=== PATIENT | male | born 1945 | race Caucasian/White ===

== ENCOUNTER 2020-02-20 08:16 | Outpatient (CLI) | payer OTHER, SELFPAY ==
--- NOTE | ~2020-02-20 | XR_ITS ---
XR ribs RT 2V w CXR 2V DATE: 02/20/2020 08:45 INDICATION: Right lower lateral rib pain. No injury. TECHNIQUE: PA and lateral views. COMPARISON: None FINDINGS: Status post sternotomy. Normal heart size. There is aortic calcification and unfolding. No hilar or mediastinal enlargement. No pulmonary infiltrate or consolidation, pleural effusion or pulmo nary vascular congestion or pneumothorax. 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 There is degenerative spurring of the th oracic spine. IMPRESSION: Status post sternotomy No active cardiopulmonary disease No rib fracture or bone destruction is detected Reviewed, dictated and finalized at location A.
[2020-02-20 09:11] LABS: Alanine Aminotransferase 19 U/L (4-50); Albumin Level 4.2 g/dL (3.5-5.1); Alkaline Phosphatase 54 U/L (38-126); Aspartate Amino Transferase 23 U/L (17-59); Bilirubin,Total 0.6 mg/dL (0.2-1.3); Blood Urea Nitrogen 20 mg/dL (9-20); Calcium 9.1 mg/dL (8.4-10.2); Carbon Dioxide 27 mmol/L (22-30); Chloride 103 mmol/L (98-107); Estimated Glomerular Filt Rate > 60; Glucose 171 mg/dL (75-110); Potassium 4.2 mmol/L (3.4-5.0); Sodium 137 mmol/L (137-145)
[2020-02-20 09:14] LABS: Basophils Percent Auto 0.6 % (0.2-1.2); Eosinophils Absolute Auto 0.2 K/mm3 (0-0.3); Eosinophils Percent Auto 2.1 % (0-4.4); Hematocrit 45.3 % (42.0-52.0); Hemoglobin 15.2 g/dL (14.0-18.0); Immature Granulocyte Absolute 0.02 K/mm3 (0.00-0.031); Immature Granulocyte Percent A 0.3 % (0-0.5); Lymphocytes Absolute Auto 1.03 K/mm3 (0.9-3.2); Lymphocytes Percent Auto 14.7 % (18.3-44.2); Mean Corpuscular HGB Conc 33.6 g/dl (32-36); Mean Corpuscular Hemoglobin 31.9 pg (26-34); Mean Platelet Volume 10.9 fl (7.4-10.4); Monocytes Absolute Auto 0.5 K/mm3 (0.1-0.6); Monocytes Percent Auto 7.4 % (2.6-8.5); Neutrophils Absolute Auto 5.3 K/mm3 (1.3-6.7); Neutrophils Percent Auto 74.9 % (45.5-73.1); Platelet Count Result 149 k/mm3 (150-375); Red Blood Count 4.77 M/mm3 (4.6-6.20); Red Cell Distribution Width 13.5 % (11.5-14.5)
[2020-02-20 09:34] LABS: Hemoglobin A1C 6.3 % (<5.7)
[2020-02-20 10:44] LABS: Creatinine Urine 175.9 mg/dL
[2020-02-20 10:47] LABS: MALB Creatinine Ratio 10.5 mg/g (0-30); Microalbumin Urine Random 18.5 mg/L (0-16.7)
== END 2020-02-20 08:17 | disposition home or self-care (01) ==
PROVIDERS: PCP Internal Medicine; Visit Provider Internal Medicine
DX: R07.81 Pleurodynia (principal); E11.9 Type 2 diabetes mellitus without complications
CPT/HCPCS: 36415; 71046; 71100; 80053; 82043; 83036; 85025

== ENCOUNTER 2020-07-16 13:58 | Outpatient (CLI) | payer OTHER, SELFPAY | END 2020-07-16 13:59 | disposition home or self-care (01) | PROVIDERS: PCP Internal Medicine; Visit Provider Internal Medicine | DX: N39.0 Urinary tract infection, site not specified (principal); R30.0 Dysuria | CPT/HCPCS: 87086; 87088 ==

== ENCOUNTER 2020-07-31 10:46 | Outpatient (CLI) | payer OTHER, SELFPAY ==
[2020-07-31 11:12] LABS: Add Urine Microscopic? YES; Appearance Urine Cloudy (Clear); Bilirubin Urine Negative (Negative); Blood Urine 3+ (Negative); Color Urine Red (Yellow); Glucose Urine UA Negative (Negative); Ketones Urine Negative (Negative); Leukocyte Esterase Ur 2+ LEU/UL (Negative); Nitrate Urine Negative (Negative); Protein Urine 2+ mg/dL (Negative); RBC Urine >75 /hpf (0-2); Specific Grav Ur 1.014 (1.001-1.035); Urobilinogen Urine Negative mg/dL (<2.0); WBC Urine >75 /hpf
== END 2020-07-31 10:47 | disposition home or self-care (01) ==
LOC: ANHLAB 10:48
PROVIDERS: PCP Internal Medicine; Visit Provider Internal Medicine
DX: R31.29 Other microscopic hematuria (principal)
CPT/HCPCS: 81001; 87077; 87086; 87088; 87186

== ENCOUNTER 2020-08-14 08:28 | Outpatient (CLI) | payer OTHER, SELFPAY ==
[2020-08-14 08:56] LABS: Basophils Percent Auto 0.6 % (0.2-1.2); Eosinophils Absolute Auto 0.2 K/mm3 (0-0.3); Eosinophils Percent Auto 2.6 % (0-4.4); Hematocrit 42.7 % (42.0-52.0); Hemoglobin 14.4 g/dL (14.0-18.0); Immature Granulocyte Absolute 0.04 K/mm3 (0.00-0.031); Immature Granulocyte Percent A 0.6 % (0-0.5); Lymphocytes Absolute Auto 1.34 K/mm3 (0.9-3.2); Lymphocytes Percent Auto 20.6 % (18.3-44.2); Mean Corpuscular HGB Conc 33.7 g/dl (32-36); Mean Corpuscular Volume 94.9 fl (80-100); Mean Platelet Volume 10.1 fl (7.4-10.4); Monocytes Absolute Auto 0.5 K/mm3 (0.1-0.6); Monocytes Percent Auto 8.2 % (2.6-8.5); Neutrophils Absolute Auto 4.4 K/mm3 (1.3-6.7); Neutrophils Percent Auto 67.4 % (45.5-73.1); Platelet Count Result 169 k/mm3 (150-375); Red Cell Distribution Width 13.6 % (11.5-14.5); White Blood Count 6.5 K/mm3 (4.5-10.0)
[2020-08-14 09:10] LABS: Alanine Aminotransferase 27 U/L (4-50); Albumin Level 4.2 g/dL (3.5-5.1); Alkaline Phosphatase 53 U/L (38-126); Anion Gap 6 mmol/L (8-16); Aspartate Amino Transferase 27 U/L (17-59); Bilirubin,Total 0.6 mg/dL (0.2-1.3); Blood Urea Nitrogen 21 mg/dL (9-20); Calcium 9.5 mg/dL (8.4-10.2); Carbon Dioxide 31 mmol/L (22-30); Chloride 102 mmol/L (98-107); Cholesterol 148 mg/dL (0-200); Estimated Glomerular Filt Rate > 60; Glucose 150 mg/dL (75-110); HDL Direct 34 mg/dL; Potassium 4.8 mmol/L (3.4-5.0); Sodium 139 mmol/L (137-145); Triglycerides 175 mg/dL (<150)
[2020-08-14 09:21] LABS: LDL Cholesterol Direct 91 mg/dL
[2020-08-14 09:40] LABS: Prostate Specific Antigen 3.3 ng/mL (< OR = 4.0)
[2020-08-14 09:59] LABS: Creatinine Urine 175.7 mg/dL
[2020-08-14 10:05] LABS: MALB Creatinine Ratio 9.9 mg/g (0-30); Microalbumin Urine Random 17.4 mg/L (0-16.7)
[2020-08-14 10:16] LABS: Vitamin D 25 Hydroxy 61.9 ng/mL
[2020-08-17 08:12] LABS: Testosterone Total 657 ng/dL (250-1100)
== END 2020-08-14 08:29 | disposition home or self-care (01) ==
PROVIDERS: PCP Internal Medicine; Visit Provider Internal Medicine
DX: E78.5 Hyperlipidemia, unspecified (principal); I10 Essential (primary) hypertension; E11.42 Type 2 diabetes mellitus with diabetic polyneuropathy; K21.9 Gastro-esophageal reflux disease without esophagitis; I48.0 Paroxysmal atrial fibrillation; E03.9 Hypothyroidism, unspecified; N40.0 Benign prostatic hyperplasia without lower urinary tract symptoms; G62.9 Polyneuropathy, unspecified; E55.9 Vitamin D deficiency, unspecified; Z12.5 Encounter for screening for malignant neoplasm of prostate
CPT/HCPCS: 36415; 80053; 80061; 82043; 82306; 83036; 84153; 84402; 84403; 84443; 85025; G0103

== ENCOUNTER 2021-02-12 08:00 | Outpatient (CLI) | payer OTHER, SELFPAY ==
[2021-02-12 08:32] LABS: Hemoglobin A1C 6.1 % (<5.7)
[2021-02-12 08:58] LABS: Alanine Aminotransferase 20 U/L (4-50); Albumin Level 4.5 g/dL (3.5-5.1); Alkaline Phosphatase 55 U/L (38-126); Anion Gap 10 mmol/L (8-16); Aspartate Amino Transferase 28 U/L (17-59); Bilirubin,Total 0.4 mg/dL (0.2-1.3); Blood Urea Nitrogen 29 mg/dL (9-20); Calcium 9.5 mg/dL (8.4-10.2); Carbon Dioxide 27 mmol/L (22-30); Chloride 104 mmol/L (98-107); Cholesterol 149 mg/dL (0-200); Estimated Glomerular Filt Rate 59; Glucose 121 mg/dL (75-110); HDL Direct 42 mg/dL; Potassium 4.2 mmol/L (3.4-5.0); Sodium 141 mmol/L (137-145); Triglycerides 110 mg/dL (<150)
[2021-02-12 09:00] LABS: Creatinine Urine 201.1 mg/dL
[2021-02-12 09:05] LABS: MALB Creatinine Ratio 15.7 mg/g (0-30); Microalbumin Urine Random 31.5 mg/L (0-16.7)
[2021-02-12 09:09] LABS: LDL Cholesterol Direct 72 mg/dL
[2021-02-15 08:26] LABS: Testosterone Free 18.2 pg/mL (6.0-73.0); Testosterone Total 166 ng/dL (250-1100)
== END 2021-02-12 08:01 | disposition home or self-care (01) ==
PROVIDERS: PCP Internal Medicine; Visit Provider Internal Medicine
DX: E29.1 Testicular hypofunction (principal); E03.9 Hypothyroidism, unspecified; E11.59 Type 2 diabetes mellitus with other circulatory complications; I10 Essential (primary) hypertension; E78.2 Mixed hyperlipidemia
CPT/HCPCS: 36415; 80053; 80061; 82043; 83036; 84402; 84403

== ENCOUNTER 2021-09-16 08:23 | Outpatient (CLI) | payer OTHER, SELFPAY ==
[2021-09-16 09:05] LABS: Basophils Absolute Auto 0.1 K/mm3 (0.0-0.1); Basophils Percent Auto 0.7 % (0.2-1.2); Eosinophils Absolute Auto 0.2 K/mm3 (0-0.3); Hematocrit 45.8 % (42.0-52.0); Hemoglobin 15.2 g/dL (14.0-18.0); Immature Granulocyte Absolute 0.03 K/mm3 (0.00-0.031); Immature Granulocyte Percent A 0.4 % (0-0.5); Lymphocytes Percent Auto 16.5 % (18.3-44.2); Mean Corpuscular HGB Conc 33.2 g/dl (32-36); Mean Corpuscular Hemoglobin 30.2 pg (26-34); Mean Corpuscular Volume 91.1 fl (80-100); Mean Platelet Volume 10.4 fl (7.4-10.4); Monocytes Absolute Auto 0.6 K/mm3 (0.1-0.6); Neutrophils Absolute Auto 4.7 K/mm3 (1.3-6.7); Neutrophils Percent Auto 70.4 % (45.5-73.1); Platelet Count Result 155 k/mm3 (150-375); Red Blood Count 5.03 M/mm3 (4.6-6.20); Red Cell Distribution Width 14.6 % (11.5-14.5); White Blood Count 6.7 K/mm3 (4.5-10.0)
[2021-09-16 09:15] LABS: Alanine Aminotransferase 20 U/L (4-50); Albumin Level 4.3 g/dL (3.5-5.1); Alkaline Phosphatase 55 U/L (38-126); Anion Gap 4 mmol/L (8-16); Aspartate Amino Transferase 25 U/L (17-59); Bilirubin,Total 0.7 mg/dL (0.2-1.3); Blood Urea Nitrogen 26 mg/dL (9-20); Calcium 9.4 mg/dL (8.4-10.2); Carbon Dioxide 30 mmol/L (22-30); Chloride 104 mmol/L (98-107); Estimated Glomerular Filt Rate 54; Glucose 126 mg/dL (65-110); Potassium 4.9 mmol/L (3.4-5.0); Sodium 138 mmol/L (137-145)
[2021-09-16 09:37] LABS: Hemoglobin A1C 6.7 % (<5.7)
[2021-09-16 09:42] LABS: Prostate Specific Antigen 1.7 ng/mL (< OR = 4.0)
[2021-09-16 09:46] LABS: Vitamin D 25 Hydroxy 58.7 ng/mL
[2021-09-16 10:29] LABS: Creatinine Urine 141.9 mg/dL
[2021-09-16 10:33] LABS: MALB Creatinine Ratio 14.1 mg/g (0-30)
[2021-09-19 00:49] LABS: Testosterone Free 26.2 pg/mL (6.0-73.0); Testosterone Total 247 ng/dL (250-1100)
== END 2021-09-16 08:24 | disposition home or self-care (01) ==
PROVIDERS: PCP Internal Medicine; Visit Provider Internal Medicine
DX: E29.1 Testicular hypofunction (principal); E11.59 Type 2 diabetes mellitus with other circulatory complications; E55.9 Vitamin D deficiency, unspecified; E78.5 Hyperlipidemia, unspecified; G62.9 Polyneuropathy, unspecified; I10 Essential (primary) hypertension; I48.0 Paroxysmal atrial fibrillation; N40.0 Benign prostatic hyperplasia without lower urinary tract symptoms; Z12.5 Encounter for screening for malignant neoplasm of prostate
CPT/HCPCS: 36415; 80053; 82043; 82306; 83036; 84153; 84402; 84403; 84443; 85025; G0103

== ENCOUNTER 2022-01-07 09:58 | Inpatient (IN) | payer OTHER, SELFPAY ==
[2022-01-07] VITALS (24 sets, daily range): BP systolic 106–136; BP diastolic 51–71; PULSE 80–96; RESP 12–32; TEMP 36.9–38.8; O2SAT 91–96; BMI 28.9
--- NOTE | 2022-01-07 | ECHO_ITS ---
Patient Info Name: Fermín Castellano Age: 76 years : 1945 Gender: Male Ht: 69 in Wt: 179 lbs BSA: 2.00 m2 HR: 93 bpm BP: 108 / 71 mmHg Heart Rhythm: Sinus Rhythm Technical Quality: Fair Exam Date: 01/07/2022 3:52 PM Exam Location: [facility] Patient Status: Outpatient Admit Date: 01/07/2022 Staff Ordering Physician: Ruddy Fitzpatrick DO Travograph Operator: Marry Grimm RDCS Attending Provider: Vita Cantu MD Referring Physician: Amari DANIEL; Exam Type: CA echo doppler color flow Study Info Indications - elevated troponin Complete two-dimensional, color flow and Doppler transthoracic echocardiogram is performed. Summary 1. Complete two-dimensional, color flow and Doppler transthoracic echocardiogram is performed. 2. Left ventricular chamber dimension is normal. 3. Left ventricular systolic function is normal, estimated at 60-65%. 4. Left ventricular septal wall motion is abnormal with septal motion related to bundle branch block. 5. The left ventricular diastolic function is abnormal. 6. E/e' 12 is mildly elevated. 7. Left atrial chamber dimension is mildly enlarged. 8. Right atrial chamber dimension is mildly enlarged. 9. There is mild aortic valve sclerosis. 10. There is trace aortic valve regurgitation. 11. There is mild mitral valve regurgitation. 12. There is mild tricuspid valve regurgitation. 13. No pulmonary hypertension, estimated pulmonary arterial systolic pressure is 37 mmHg. 14. There is trace pulmonic regurgitation. Left Ventricle E/e' 12 is mildly elevated. Left ventricular chamber dimension is normal. Left ventricular systolic function is normal, estimated at 60-65%. Left ventricular septal wall motion is abnormal with septal motion related to bundle branch block. The left ventricular diastolic function is abnormal. Right Ventricle Right ventricular chamber dimension is normal. Right ventricular systolic function is normal. Left Atria Left atrial chamber dimension is mildly enlarged. Right Atria Right atrial chamber dimension is mildly enlarged. Aortic Valve The aortic valve is trileaflet. There is mild aortic valve sclerosis. There is no aortic valve stenosis. There is trace aortic valve regurgitation. Pulmonic Valve There is trace pulmonic regurgitation. Mitral Valve There is no mitral valve stenosis. There is mild mitral valve regurgitation. Tricuspid Valve There is mild tricuspid valve regurgitation. No pulmonary hypertension, estimated pulmonary arterial systolic pressure is 37 mmHg. Pericardium/Pleural There is no pericardial effusion. Inferior Vena Cava Normal inferior vena cava with >50% collapse upon inspiration consistent with normal right atrial pressure, 5 mmHg. Aorta The aortic root size at the sinus of Valsalva is normal. Left Ventricular Outflow Tract Name Value Normal LVOT 2D LVOT Diameter 2.1 cm LVOT Doppler LVOT Peak Gradient 6 mmHg LVOT Mean Gradient 3 mmHg LVOT VTI 19 cm LVOT VTI/AV VTI Ratio
--- NOTE | ~2022-01-07 | XR_ITS ---
EXAMINATION: XR chest 2V DATE: 01/07/2022 10:36 INDICATION: Chest pain. Shortness of breath. TECHNIQUE: Frontal and lateral views of the chest were obtained. COMPARISON: Chest 2 views 02/20/2020 FINDINGS: There are airspace opacities in right lower lobe, consistent with pneumonia. A calcified ri ght lung nodule is consistent with old granulomatous disease. No pleural effusion or pneumothorax. Th e heart size is normal. Median sternotomy wires and mediastinal surgical clips are seen, likely from prior coronary artery bypass grafting. IMPRESSION: 1. Right lower lobe pneumonia. Reviewed, dictated and finalized at location A.
--- NOTE | ~2022-01-07 | US_ITS ---
EXAMINATION: US abdomen limited DATE: 01/10/2022 11:27 INDICATION: Abnormal liver function tests. TECHNIQUE: Multiple grayscale and Doppler ultrasound images of the abdomen were obtained. COMPARISON: Chest CT 01/08/2022 FINDINGS: The visualized portions of the head and body of the pancreas are normal. The liver is nohelia l without focal lesion. There is normal flow in main portal vein. The gallbladder is normal in size. No visible gallstones. Gallbladder wall thickening is noted. There was no sonographic Umanzor sign. Th e common duct is normal and measures 4 mm. IMPRESSION: 1. Gallbladder wall thickening, which may be seen with chronic cholecystitis, chronic liver disease, or interstitial edema. Reviewed, dictated and finalized at location A. IMPRESSION: 1. Gallbladder wall thickening, which may be seen with chronic cholecystitis, c hronic liver disease, or interstitial edema.
--- NOTE | ~2022-01-07 | US_ITS ---
EXAMINATION: US renal BI DATE: 01/11/2022 13:08 INDICATION: MARITZA/ARF TECHNIQUE: Multiple ultrasound grayscale images of the kidneys were obtained. COMPARISON: None. FINDINGS: The right kidney measures 12.4 cm. The left kidney measures 12.7 cm. The kidneys demonstrate normal p arenchymal echogenicity. 2.6 cm right midpole simple cyst. There is no hydronephrosis. The bladder wa s not imaged. IMPRESSION: 1. No hydronephrosis. Reviewed, dictated and finalized at location K. IMPRESSION: 1. No hydronephrosis.
--- NOTE | ~2022-01-07 | CT_ITS ---
EXAMINATION:CT diagnostic chest wo con DATE: 01/08/2022 13:48 INDICATION: Left chest pain. Pneumonia. TECHNIQUE: Computed tomography (CT) of the chest was performed without intravenous contrast. Automate d exposure control and iterative reconstruction technique were employed. The dose-length product (DLP ) was 273.74 mGy-cm. COMPARISON: Chest 2 views 01/07/2022 FINDINGS: There are airspace and groundglass opacities in right lower lobe with air bronchograms. The re are airspace and groundglass opacities in apical and posterior segments of right upper lobe. Calci fied bilateral lung nodules and calcified right hilar and mediastinal lymph nodes are consistent with old granulomatous disease. There are 5 mm and 4 mm nodules in left lower lobe, likely benign. There is a trace right pleural effusion. There is a small sliding hiatal hernia. Cardiomegaly is noted. The re are coronary artery calcifications. No pericardial effusion. The central pulmonary arteries are en larged, consistent with pulmonary arterial hypertension. There are changes of coronary artery bypass grafting. There is bilateral gynecomastia. There is a gallstone in the gallbladder, which is contract ed. Calcifications in the spleen are consistent with old granulomatous disease. There is mild thoraci c spondylosis. There is a benign bone island in T12. IMPRESSION: 1. Pneumonia involving right upper lobe and right lower lobe. Reviewed, dictated and finalized at location A.
--- NOTE | 2022-01-07 10:09 | ED.CHESTPAIN ---
HPI - Chest Pain General Chief Complaint: Chest Pain Stated Complaint: chest pain Time Seen by Provider: 01/07/22 10:08 Source: patient Mode of arrival: ambulatory Limitations: no limitations History of Present Illness HPI narrative: Patient is a 76-year-old male who presents to the ED with multiple complaints. Patient reports he has been sick since last Thursday with myalgias, diffuse joint pains, difficulty breathing - worse with exertion, and pain in his left-sided chest with taking a deep breath. He has had a cough over the last couple days and a fever for the last 3 days, up to 103 ?F at home. He has been taking Tylenol at home for pain and fevers. Denies any sore throat, rhinorrhea, congestion, nausea, vomiting, abdominal pain, headache. Patient does not wear oxygen at home. He is currently on Xarelto and takes an aspirin 81 mg due to history of blood clots. He is also on amiodarone, but is unsure why. He denies a known history of atrial fibrillation. Outside cardiology documentation from 2019 reports history of paroxysmal atrial fibrillation. He has seen Dr. Suarez with [facility]. Related Data Home Medications Medication Instructions Recorded Confirmed albuterol sulfate 90 mcg/actuation 1 puff inhalation Q4H PRN 08/15/19 01/07/22 aerosol inhaler Shortness Of Breath amiodarone 200 mg tablet 100 mg PO DAILY 08/15/19 01/07/22 amlodipine 5 mg tablet 5 mg PO DAILY 08/15/19 01/07/22 aspirin 81 mg tablet,delayed 81 mg PO DAILY 08/15/19 01/07/22 release (Adult Low Dose Aspirin) hydroxyzine HCl 10 mg tablet 10 mg PO HS 08/15/19 01/07/22 losartan 100 mg tablet 100 mg PO DAILY 08/15/19 01/07/22 metformin 1,000 mg tablet 1,000 mg PO DAILY 08/15/19 01/07/22 rzqsciknfzwp-notntlgj-ahrbxx tablet 1 tablet PO DAILY 08/15/19 01/07/22 omega-3 fatty acids 1,000 mg 1,000 mg PO DAILY 08/15/19 01/07/22 capsule (Fish Oil Concentrate) omeprazole 40 mg capsule,delayed 40 mg PO DAILY 08/15/19 01/07/22 release rivaroxaban 20 mg tablet (Xarelto) 20 mg PO 1700 01/06/20 05/31/22 tamsulosin 0.4 mg capsule 0.4 mg PO DAILY 08/15/19 01/07/22 tramadol 50 mg tablet 50 mg PO Q6H PRN Pain 08/15/19 01/07/22 vitamin E (dl, acetate) 180 mg 400 unit PO DAILY 08/15/19 01/07/22 (400 unit) capsule gabapentin 300 mg capsule 300 mg PO QID 08/14/20 01/07/22 bupropion HCl 100 mg tablet 200 mg PO DAILY 02/13/21 01/07/22 docusate sodium 100 mg capsule 100 mg PO DAILY 02/13/21 01/07/22 vitamin B complex (B 1 tablet PO DAILY 02/13/21 01/07/22 Complex-Vitamin B12) acetaminophen 500 mg capsule 500 mg PO Q12H PRN Muscle Pain 11/04/21 01/07/22 levothyroxine 50 mcg tablet 50 mcg PO DAILY 01/07/22 01/07/22 Allergies Allergy/AdvReac Type Severity Reaction Status Date / Time No Known Allergies Allergy Verified 01/07/22 10:22 Review of Systems Review of Systems: CONSTITUTIONAL: Reports fever. Denies chills, or sweats. ENT: Denies rhinorrhea, congestion, sore throat. CARDIOVASCULAR: Reports L sided CP with inspiration. Denies edema. RESPIRATORY: Reports cough and dyspnea, worse with exertion. GASTROINTESTINAL: Denies abdominal pain, nausea, vomiting, or diarrhea. MUSCULOSKELETAL: Reports diffuse joint pain and myalgias. NEUROLOGIC: Denies headache. All systems reviewed & are unremarkable except as noted in HPI and below PMFSH Past Medical History Medical History (Updated 01/07/22 @ 20:18 by Alejandra Cunha APRN) Afib BPH (benign prostatic hyperplasia) CAD (coronary artery disease) Diabetes Dyslipidemia Essential hypertension GERD (gastroesophageal reflux disease) Testicular hyperfunction Surgical History Surgical History (Updated 01/07/22 @ 20:18 by Alejandra Cunha APRN) History of coronary artery bypass graft History of coronary artery stent placement Family History Family History Mother Heart attack Father Heart attack Social History Social History (Reviewed 0
--- NOTE | 2022-01-07 10:13 | ECG_ITS ---
Measurements Intervals [place] Rate: 85 P: 80 TN: 180 QRS: 13 QRSD: 103 T: 34 QT: 385 QTc: 458 Interpretive Statements SINUS RHYTHM BORDERLINE T WAVE ABNORMALITY- ANTERIOR LEADS BORDERLINE ECG Electronically Signed On 01-07-2022 14:13:49 CDT by Ruddy Fitzpatrick D.O.
[2022-01-07 10:24] LABS: Basophils Absolute Auto 0.1 K/mm3 (0.0-0.1); Basophils Percent Auto 0.4 % (0.2-1.2); Eosinophils Absolute Auto 0.2 K/mm3 (0-0.3); Eosinophils Percent Auto 1.2 % (0-4.4); Hematocrit 37.3 % (42.0-52.0); Hemoglobin 12.4 g/dL (14.0-18.0); Immature Granulocyte Absolute 0.07 K/mm3 (0.00-0.031); Immature Granulocyte Percent A 0.5 % (0-0.5); Lymphocytes Absolute Auto 0.26 K/mm3 (0.9-3.2); Lymphocytes Percent Auto 1.8 % (18.3-44.2); Mean Corpuscular HGB Conc 33.2 g/dl (32-36); Mean Corpuscular Hemoglobin 33.1 pg (26-34); Mean Corpuscular Volume 99.5 fl (80-100); Mean Platelet Volume 10.2 fl (7.4-10.4); Monocytes Absolute Auto 0.6 K/mm3 (0.1-0.6); Monocytes Percent Auto 4.4 % (2.6-8.5); Neutrophils Absolute Auto 13.5 K/mm3 (1.3-6.7); Neutrophils Percent Auto 91.7 % (45.5-73.1); Platelet Count Result 201 k/mm3 (150-375); Red Blood Count 3.75 M/mm3 (4.6-6.20); Red Cell Distribution Width 13.1 % (11.5-14.5); White Blood Count 14.7 K/mm3 (4.5-10.0)
[2022-01-07 10:38] LABS: INR 2.8; Prothrombin Time 28.9 Seconds (11.1-14.7)
[2022-01-07 10:39] LABS: Partial Thromboplastin Time 49.4 SECONDS (22.3-36.8)
[2022-01-07 10:41] LABS: Alanine Aminotransferase 32 U/L (6-50); Albumin Level 3.7 g/dL (3.5-5.1); Alkaline Phosphatase 109 U/L (38-126); Anion Gap 10 mmol/L (8-16); Aspartate Amino Transferase 51 U/L (17-59); Bilirubin,Total 2.1 mg/dL (0.2-1.3); Blood Urea Nitrogen 45 mg/dL (9-20); Calcium 8.1 mg/dL (8.4-10.2); Carbon Dioxide 20 mmol/L (22-30); Chloride 103 mmol/L (98-107); Estimated CRCL calculation 28 ml/min; Estimated Glomerular Filt Rate 33; Glucose 146 mg/dL (65-110); Lipase 76 U/L (23-300); Potassium 4.3 mmol/L (3.4-5.0); Sodium 133 mmol/L (137-145)
[2022-01-07 10:55] LABS: Crenated RBC 1+ (NORMAL); Platelet Estimate Adequate (Adequate)
[2022-01-07 11:25] LABS: Influenza A QL RT-PCR Negative (Negative); Influenza B QL RT-PCR Negative (Negative); SARS-CoV-2 RNA PCR Negative
--- NOTE | 2022-01-07 12:02 | PC.NURSE ---
SPO2 88-92% with ambulation. Pt becomes mildy sob with exertion.
[2022-01-07] MEDS: SODIUM CHLORIDE 0.9% IV 1,000 ML 999 ML IV CONT (12:30)
[2022-01-07 12:39] LABS: Lactic Acid Reflex 2.5 mmol/L (0.7-2.0)
--- NOTE | 2022-01-07 13:28 | ADMGEN ---
This patient, Fermín Castellano, was admitted to IMU Room 207-01. Patient/family oriented to hospital policies and general routines including ID bracelet, bed and alarms, visiting hours, pain management, procedures, bathroom and other care routines, personal items, smoking policy, room service/diet, and visiting hours. Information on how to activate the Rapid Response Team has been discussed. Patient/Family are encouraged to report perceived risks to care and to ask questions if they do not understand what they are told or what they should do.
[2022-01-07 14:06] LABS: Troponin I 0.066 ng/mL (0.000-0.034)
[2022-01-07 15:24] LABS: Reflex Lactic Acid Yes or No Add Lactic
[2022-01-07] MEDS: SODIUM CHLORIDE 0.9% IV 1,000 ML 100 ML IV CONT (16:17)
[2022-01-07 16:22] LABS: Lactic Acid 2.3 mmol/L (0.7-2.0)
[2022-01-07 16:38] LABS: Troponin I 0.064 ng/mL (0.000-0.034)
--- NOTE | 2022-01-07 17:25 | PM.CNCAR ---
Assessment and Plan Assessment and plan (1) Elevated troponin: Code(s): R77.8 - Other specified abnormalities of plasma proteins Status: Acute Assessment and Plan: Peaked at .07 and trending down. Doubt ACS. Likely due to pneumonia with acute renal failure. Obtain echo. (2) Pneumonia: Qualifiers: Laterality: right Lung location: lower lobe of lung Pneumonia type: due to unspecified organism Qualified Code(s): J18.9 - Pneumonia, unspecified organism Code(s): J18.9 - Pneumonia, unspecified organism Status: Acute Assessment and Plan: On antibiotics as per hospitalist. (3) Acute kidney injury: Code(s): N17.9 - Acute kidney failure, unspecified Status: Acute Assessment and Plan: Monitor and received IVF. (4) CAD (coronary artery disease): Code(s): I25.10 - Atherosclerotic heart disease of [place] coronary artery without angina pectoris Status: Acute Assessment and Plan: Stable. His regular broadcaster is Dr. Baca at [facility] was planning on doing a nuclear stress test this week. (5) PAF (paroxysmal atrial fibrillation): Code(s): I48.0 - Paroxysmal atrial fibrillation Status: Acute Assessment and Plan: On Amiodarone and Xarelto and maintaining normal rhythm. History of Present Illness History of Present Illness Consult date/time: 01/07/22 17:25 Reason for consult: Elevated troponin. 76 yr old man presented to ER with sob. He has a history of PAF, CAD with 6 stents and last one placed in 2016, DM, hypertension, dyslipidemia. His regular broadcaster is Dr. Baca at [facility]. Reports he had fever and chills and sob since last Wed which is 6 days ago. He also had a dry cough with it. Normally he can walk 100 feet with his walker. Troponin were drawn were slightly elevated at .07 then .066. CXR shows RLL pneumonia. EKG shows sinus rhythm. Reason For Visit: RLL PNA, MARITZA, Elevated Trop Review of Systems Review of Systems: All systems reviewed & are unremarkable except as noted in HPI and below Constitutional: Constitutional: Reports as per HPI, Reports chills, Reports fatigue and Reports fever(s) Cardiovascular: Cardiovascular: Reports as per HPI, Denies chest pain, Denies irregular heart rhythm, Denies leg edema and Denies lightheadedness Respiratory: Respiratory: Reports as per HPI and Reports dyspnea on exertion Gastrointestinal: Gastrointestinal: Reports as per HPI and Denies abdominal pain Genitourinary: Genitourinary: Reports as per HPI and Denies dysuria Musculoskeletal: Musculoskeletal: Reports as per HPI Neurologic: Reports as per HPI, Denies dizziness and Denies syncope [facility] Past Medical History Medical History Afib BPH (benign prostatic hyperplasia) Diabetes Dyslipidemia Essential hypertension GERD (gastroesophageal reflux disease) Testicular hyperfunction Surgical History Surgical History (Updated 01/07/22 @ 11:07 by Yojana Guerrero PA-C) History of coronary artery bypass graft Family History Family History Mother Heart attack Father Heart attack Social History Social History Smoking status: Never smoker Second hand tobacco smoke exposure: No Alcohol intake: never Substance use: never Gender identity (if verbalized by the patient): Male Spiritual care concerns: No Meds Home Medications and Allergies Home Medications Medication Instructions Recorded Confirmed Type albuterol sulfate 90 mcg/actuation 1 puff inhalation Q4H PRN 08/15/19 01/07/22 History aerosol inhaler Shortness Of Breath amiodarone 200 mg tablet 100 mg PO DAILY 08/15/19 01/07/22 History amlodipine 5 mg tablet 5 mg PO DAILY 08/15/19 01/07/22 History aspirin 81 mg tablet,delayed 81 mg PO DAILY 08/15/1912/10
--- NOTE | 2022-01-07 19:52 | PM.IMHP ---
H&P: HPI History of Present Illness Date/Time: Patient was placed observation status for expected length of stay less than 23 hours for management, will plan to re-evaluate tomorrow for improvement. 01/07/22 19:52 Chief Complaint: Shortness of breath Narrative: Mr. Castellano is a 76-year-old gentleman who presented to the emergency room with complaints increasing shortness of breath and body aches. Patient states that for the last 5 days he has had a fever at home that has ranged from 101-103 Degrees F with a oral thermometer. Patient states that he was opening his pool on Thursday and then on he was extremely stiff and felt like he could not move and was having total body aches and pains. Patient states he has had a cough for the last 5 days with occasional sputum that has been a dark soheila color. Patient states he does have an albuterol MDI at home that was given to him a few years ago and he has used over the last 5 days and he has noticed slight improvement in his shortness of breath. Patient states that his chest does hurt when he takes a deep breath. Patient denies any chest discomfort at rest. Patient denies any lightheadedness, dizziness, syncopal, or near syncopal episodes. Upon evaluation in emergency room patient was noted to have an oxygen saturation of 90% on room air. Patient denies wearing oxygen at home. Chest x-ray was performed In the emergency room and it showed significant right lower lobe pneumonia. Patient has a known history of coronary disease status post coronary bypass grafting status post stent placement, hypertension, diabetes mellitus, GERD, paroxysmal atrial fibrillation, hypothyroidism, and dyslipidemia. Review of Systems Review of Systems: A 12 point review of systems was completed patient all pertinent positive and negative per HPI the remainder are unremarkable. [facility] Past Medical History Medical History (Updated 01/07/22 @ 20:18 by Alejandra Cunha APRN) Afib BPH (benign prostatic hyperplasia) CAD (coronary artery disease) Diabetes Dyslipidemia Essential hypertension GERD (gastroesophageal reflux disease) Testicular hyperfunction Surgical History Surgical History (Updated 01/07/22 @ 20:18 by Alejandra Cunha APRN) History of coronary artery bypass graft History of coronary artery stent placement Family History Family History Mother Heart attack Father Heart attack Social History Social History Smoking status: Never smoker Second hand tobacco smoke exposure: No Alcohol intake: never Substance use: never Gender identity (if verbalized by the patient): Male Spiritual care concerns: No Meds Home Medications and Allergies Home Medications Medication Instructions Recorded Confirmed Type albuterol sulfate 90 mcg/actuation 1 puff inhalation Q4H PRN 08/15/19 01/07/22 History aerosol inhaler Shortness Of Breath amiodarone 200 mg tablet 100 mg PO DAILY 08/15/19 01/07/22 History amlodipine 5 mg tablet 5 mg PO DAILY 08/15/19 01/07/22 History aspirin 81 mg tablet,delayed 81 mg PO DAILY 08/15/19 01/07/22 History release (Adult Low Dose Aspirin) hydroxyzine HCl 10 mg tablet 10 mg PO HS 08/15/19 01/07/22 History losartan 100 mg tablet 100 mg PO DAILY 08/15/19 01/07/22 History metformin 1,000 mg tablet 1,000 mg PO DAILY 08/15/19 01/07/22 History pukwzibkikkl-fmsvqdxf-hlkvbn tablet 1 tablet PO DAILY 08/15/19 01/07/22 History omega-3 fatty acids 1,000 mg 1,000 mg PO DAILY 08/15/19 01/07/22 History capsule (Fish Oil Concentrate) omeprazole 40 mg capsule,delayed 40 mg PO DAILY 08/15/19 01/07/22 History release pravastatin 40 mg tablet 40 mg PO DAILY #90 tabs 08/15/19 01/07/22 Rx rivaroxaban 20 mg tablet (Xarelto) 20 mg PO 1700 08/15/19 01/07/22 History tamsulosin 0.4 mg capsule 0.4 mg PO DAILY 08/15/19 01/07/22 History tramadol 50 mg tab
[2022-01-07] MEDS: hydrOXYzine HCL 10 MG TABLET PO (21:41)
[2022-01-07] MEDS: GABAPENTIN 300 MG CAPSULE PO (21:41)
[2022-01-07] MEDS: ACETAMINOPHEN 325 MG TABLET 650 MG PO (21:41)
[2022-01-08] VITALS (9 sets, daily range): BP systolic 110–152; BP diastolic 60–88; PULSE 75–107; RESP 18–24; TEMP 36.6–37.2; O2SAT 90–100
[2022-01-08] MEDS: SODIUM CHLORIDE 0.9% IV 1,000 ML 100 ML IV CONT ×3 (01:42→20:48)
[2022-01-08] MEDS: LEVOTHYROXINE SODIUM 50 MCG TABLET PO (06:37)
--- NOTE | 2022-01-08 08:00 | PM.PNCARD ---
Progress Note: A&P Assessment and Plan (1) Elevated troponin: Code(s): R77.8 - Other specified abnormalities of plasma proteins Status: Acute Assessment and Plan: Peaked at .07 and trending down. Doubt ACS. Likely due to pneumonia with acute renal failure Echo shows EF 60-65%, mild biatrial enlargement, trace AI/PI, mild MR/TR. (2) Pneumonia: Qualifiers: Laterality: right Lung location: lower lobe of lung Pneumonia type: due to unspecified organism Qualified Code(s): J18.9 - Pneumonia, unspecified organism Code(s): J18.9 - Pneumonia, unspecified organism Status: Acute Assessment and Plan: On antibiotics as per hospitalist. (3) Acute kidney injury: Code(s): N17.9 - Acute kidney failure, unspecified Status: Acute Assessment and Plan: Monitor and received IVF. (4) CAD (coronary artery disease): Code(s): I25.10 - Atherosclerotic heart disease of [place] coronary artery without angina pectoris Status: Acute Assessment and Plan: Stable. His regular case assistant is Dr. Baca at [facility] was planning on doing a nuclear stress test this week. (5) PAF (paroxysmal atrial fibrillation): Code(s): I48.0 - Paroxysmal atrial fibrillation Status: Acute Assessment and Plan: On Amiodarone and Xarelto and was maintaining normal rhythm. Increase Amiodarone 200 mg PO BID to restore sinus rhythm. Subjective Date/time seen: 01/08/22 08:00 Reports sob with cough. No chest pains. Exam Const: General: cooperative, healthy appearing and comfortable Resp: Auscultation: clear to auscultation bilaterally, no crackles, no rales, no rhonchi and no wheezes Cardio: Jugular venous distension: no JVD Rate: regular rate Rhythm: regular rhythm Heart sounds: no murmurs Peripheral pulses: dorsalis pedis present GI: GI Palp: No abdominal tenderness and Yes Soft to palpation Neuro: General: oriented to person, oriented to place and oriented to time Extrem: Right lower extremity: no edema Left lower extremity: no edema Objective Data Vital Signs Vital Signs: Vital Signs - 24 hr 01/07/22 10:09 01/07/22 10:21 01/07/22 10:23 Temperature 98.4 F Pulse Rate 89 87 85 Respiratory Rate 18 18 Blood Pressure 116/71 120/65 Pulse Oximetry 92 93 Oxygen Delivery Room Air Room Air 01/07/22 10:16 01/07/22 10:17 01/07/22 10:41 Temperature Pulse Rate 88 85 89 Respiratory Rate 20 23 H 15 Blood Pressure 120/65 Pulse Oximetry 92 92 Oxygen Delivery 01/07/22 10:45 01/07/22 10:46 01/07/22 11:06 Temperature Pulse Rate 88 88 83 Respiratory Rate 12 23 H 25 H Blood Pressure 111/67 Pulse Oximetry 91 Oxygen Delivery 01/07/22 11:18 01/07/22 11:30 01/07/22 11:31 Temperature Pulse Rate 84 80 83 Respiratory Rate 22 H 25 H 22 H Blood Pressure 110/51 L Pulse Oximetry 91 92 Oxygen Delivery 01/07/22 11:45 01/07/22 11:47 01/07/22 12:01 Temperature Pulse Rate 87 91 90 Respiratory Rate 21 H 32 H 21 H Blood Pressure Pulse Oximetry 91 93 93 Oxygen Delivery 01/07/22 13:06 01/07/22 13:30 01/07/22 14:00 Temperature 98.6 F Pulse Rate 80 88 93 Respiratory Rate 16 26 H Blood Pressure 113/63 108/71 Pulse Oximetry 96 91 Oxygen Delivery 01/07/22 16:00 01/07/22 16:00 01/07/22 18:09 Temperature 99.3 F Pulse Rate 96 94 Respiratory Rate 22 H Blood Pressure 136/64 Pulse Oximetry 93 Oxygen Delivery Room Air 01/07/22 19:58 01/07/22 20:00 01/07/22 21:41 Temperature 102 F H 102 F H Pulse Rate 96 92 Respiratory Rate 20 Blood Pressure 131/66 Pulse Oximetry 93 Oxygen Delivery 01/07/22 20:00 01/07/22 23:40 01/08/22 00:00 Temperature 98.5 F Pulse Rate 92 80 79 Respiratory Rate 20 20 Blood Pressure 106/53 L Pulse Oximetry 93 95 Oxygen Delivery Room Air 01/08/22 04:00 01/08/22 04:00 01/07/22 13:39 Temperature 97.9 F 98.6 F Pulse Rate
[2022-01-08 08:10] LABS: Glucose Point of Care 153 mg/dl (65-105)
[2022-01-08] MEDS: FLUTICASONE PROPIONATE 0.05% NA SPR 16 GM BTL (*BKC) 2 SPRAY NASAL (08:45)
[2022-01-08] MEDS: amLODIPine BESYLATE 5 MG TABLET PO (08:46)
[2022-01-08] MEDS: GABAPENTIN 300 MG CAPSULE PO ×4 (08:46→20:48)
[2022-01-08] MEDS: VITAMIN B COMPLEX CAPSULE 1 CAP PO (08:46)
[2022-01-08] MEDS: buPROPion HCL 100 MG TABLET 200 MG PO (08:46)
[2022-01-08] MEDS: OMEGA 3 POLYUNSAT FATTY ACIDS 1 GM CAP PO (08:46)
[2022-01-08] MEDS: PANTOPRAZOLE 40 MG TABLET PO ×2 (08:46→20:48)
[2022-01-08] MEDS: TAMSULOSIN HCL 0.4 MG CAPSULE PO (08:46)
[2022-01-08] MEDS: OPTI-GEN TAB 1 TABLET PO (08:46)
[2022-01-08] MEDS: LOSARTAN POTASSIUM 100 MG TABLET PO (08:46)
[2022-01-08] MEDS: ASPIRIN 81 MG ENTERIC TABLET PO (08:46)
[2022-01-08] MEDS: PRAVASTATIN SODIUM 20 MG TABLET 40 MG PO (08:46)
[2022-01-08] MEDS: VITAMIN E 400 UNIT CAPSULE PO (08:46)
[2022-01-08] MEDS: DOCUSATE SODIUM 100 MG CAPSULE PO (08:47)
[2022-01-08] MEDS: AMIODARONE HCL 200 MG TABLET PO ×2 (08:54→20:48)
[2022-01-08] MEDS: traMADol HCL (*CRX) 50 MG TABLET PO (09:31)
--- NOTE | 2022-01-08 11:09 | ECG_ITS ---
Measurements Intervals [place] Rate: 109 P: ME: 0 QRS: 29 QRSD: 102 T: 8 QT: 365 QTc: 493 Interpretive Statements ATRIAL FIBRILLATION WITH RAPID VENTRICULAR RESPONSE MINIMAL ST DEPRESSION [0.025+ mV ST DEPRESSION] ABNORMAL ECG COMPARED TO ECG 01/07/2022 10:18:32 ATRIAL FIBRILLATION NOW PRESENT ST (T WAVE) DEVIATION NOW PRESENT Electronically Signed On 01-08-2022 11:46:22 CDT by Escobar Cantu M.D.
[2022-01-08 11:59] LABS: Magnesium 1.9 mg/dL (1.6-2.3); Phosphorus 2.7 mg/dL (2.5-4.5)
--- NOTE | 2022-01-08 13:03 | PM.IMPN ---
Progress Note: A&P Assessment and Plan (1) Pneumonia: Qualifiers: Laterality: right Lung location: lower lobe of lung Pneumonia type: due to unspecified organism Qualified Code(s): J18.9 - Pneumonia, unspecified organism Code(s): J18.9 - Pneumonia, unspecified organism Status: Acute Assessment and Plan: The patient received azithromycin and Rocephin in the emergency room. Will continue with this regimen. Cultures pending. Chest x-ray showed right-sided pneumonia. Pain is having left-sided chest pain. Cable Maker Consul a mildly elevated troponin no further workup is planned. Will get CT scan of the chest. (2) Acute kidney injury: Code(s): N17.9 - Acute kidney failure, unspecified Status: Acute Assessment and Plan: Will gently hydrate patient and continue to monitor kidney function. (3) Elevated troponin: Code(s): R77.8 - Other specified abnormalities of plasma proteins Status: Acute Assessment and Plan: Cardiology has been consult and do appreciate further recommendations. (4) Diabetes: Qualifiers: Diabetes mellitus type: type 2 Diabetes mellitus fpc insulin use: without intermediate manager use Diabetes mellitus complication status: with circulatory complication Diabetes mellitus complication detail: with other circulatory complications Qualified Code(s): E11.59 - Type 2 diabetes mellitus with other circulatory complications Code(s): E11.9 - Type 2 diabetes mellitus without complications Status: Acute Assessment and Plan: Will resume home patient's home if possible medications once we have verified medication list. Will have blood glucose monitoring before meals and at bedtime with sliding scale insulin available. Subjective Date/time seen: 01/08/22 13:03 patient complaining of left-sided chest pain. appears mildly short of breath. Not requiring oxygen. Exam Narrative: Constitutional: Patient is well-nourished in no acute distress. Patient is alert and oriented x3 HEENT: Moist mucous membranes. No scleral icterus. No lymphadenopathy. Neck: No carotid bruits noted no JVD noted Lungs: crackles noted to right lower lobe. No wheezing or rhonchi noted. Cardiovascular: Apical pulse is regular rate and rhythm. S1-S2 noted, no S3 or S4 noted. No gallops, murmurs, or rubs noted. Abdomen: Soft, round, and nontender. No palpable masses. Extremities: No edema. Nontender. Skin: No rashes or lesions. Warm and dry. Skin is intact. Neurological: No focal neurological deficits. Cranial nerves II-XII grossly intact. Psychiatric: Cooperative, appropriate mood, and affect Objective Data Vital Signs Vital Signs: Vital Signs - 24 hr 01/07/22 13:06 01/07/22 13:30 01/07/22 14:00 Temperature 98.6 F Pulse Rate 80 88 93 Respiratory Rate 16 26 H Blood Pressure 113/63 108/71 Pulse Oximetry 96 91 Oxygen Delivery 01/07/22 16:00 01/07/22 16:00 01/07/22 18:09 Temperature 99.3 F Pulse Rate 96 94 Respiratory Rate 22 H Blood Pressure 136/64 Pulse Oximetry 93 Oxygen Delivery Room Air 01/07/22 19:58 01/07/22 20:00 01/07/22 21:41 Temperature 102 F H 102 F H Pulse Rate 96 92 Respiratory Rate 20 Blood Pressure 131/66 Pulse Oximetry 93 Oxygen Delivery 01/07/22 20:00 01/07/22 23:40 01/08/22 00:00 Temperature 98.5 F Pulse Rate 92 80 79 Respiratory Rate 20 20 Blood Pressure 106/53 L Pulse Oximetry 93 95 Oxygen Delivery Room Air 01/08/22 04:00 01/08/22 04:00 01/08/22 08:00 Temperature 97.9 F 99 F Pulse Rate 80 97 104 H Respiratory Rate 18 18 Blood Pressure 110/60 137/65 Pulse Oximetry 98 91 Oxygen Delivery 01/08/22 08:00 01/08/22 08:00 01/08/22 12:00 Temperature Pulse Rate 106 H 107 H Respiratory Rate Blood Pressure Pulse Oximetry Oxygen Delivery Room Air 01/08/22 12:00 01/07/22 13:39 Temperature 98.1 F 98.6 F Pul
[2022-01-08] MEDS: ACETAMINOPHEN 325 MG TABLET 650 MG PO (14:52)
[2022-01-08] MEDS: RIVAROXABAN 20 MG TABLET PO (16:18)
[2022-01-08] MEDS: INSULIN ASPART (*BKC) 100 UNITS/ML SUB-Q (16:18)
[2022-01-08 17:21] LABS: Glucose Point of Care 261 mg/dl (65-105)
[2022-01-08 18:25] LABS: Troponin I 0.466 ng/mL (0.000-0.034)
[2022-01-08 20:38] LABS: Troponin I 0.682 ng/mL (0.000-0.034)
[2022-01-08] MEDS: hydrOXYzine HCL 10 MG TABLET PO (20:49)
[2022-01-08 20:52] LABS: Glucose Point of Care 228 mg/dl (65-105)
[2022-01-09] VITALS (13 sets, daily range): BP systolic 107–145; BP diastolic 64–93; PULSE 71–98; RESP 18–20; TEMP 36.5–36.9; O2SAT 92–97
--- NOTE | 2022-01-09 | ECHOL_ITS ---
Patient Info Name: Fermín Castellano Age: 76 years : 1945 Gender: Male Ht: 69 in Wt: 195 lbs BSA: 2.10 m2 HR: 75 bpm Technical Quality: Good Exam Date: 01/09/2022 11:12 AM Exam Location: [facility] Pulmonary Exam Room: 349 Patient Status: Inpatient Admit Date: 01/08/2022 Staff Ordering Physician: Ruddy Fitzpatrick DO [employer] Supervisor: Sarah Louise RDCS Attending Provider: Vita Cantu MD Referring Physician: Amari DANIEL; Exam Type: CA echo limited Study Info Indications - elevated troponins eval WMA Limited two-dimensional transthoracic echocardiogram is performed. Summary 1. Limited echocardiogram to assess for wall motion abnormalities. 2. Left ventricular chamber dimension is mildly enlarged. 3. Entire inferior wall is severely hypokinetic. 4. Left ventricular systolic function is moderately reduced, estimated at 40-45%. 5. The left ventricular diastolic function is indeterminate. 6. Right ventricular systolic function is severely reduced with abnormal TAPSE 1.2 cm. 7. Right ventricular chamber dimension is moderately enlarged. Left Ventricle Limited echocardiogram to assess for wall motion abnormalities. Entire inferior wall is severely hypokinetic. Left ventricular chamber dimension is mildly enlarged. Left ventricular systolic function is moderately reduced, estimated at 40-45%. The left ventricular diastolic function is indeterminate. Right Ventricle Right ventricular systolic function is severely reduced with abnormal TAPSE 1.2 cm. Right ventricular chamber dimension is moderately enlarged. Ventricles Name Value Normal LV Dimensions 2D/MM IVS Diastolic Thickness (2D) 1.0 cm 0.6-1.0 LVID Diastole (2D) 5.2 cm 4.2-5.8 LVIW Diastolic Thickness (2D) 0.9 cm 0.6-1.0 LVID Systole (2D) 4.0 cm 2.5-4.0 LV Mass (2D Cubed) 187.26 g 88.00-224.00 LV Mass Index (2D Cubed) 89 g/m2 49-115 Relative Wall Thickness (2D) 0.36 LV Fractional Shortening/Ejection Fraction 2D/MM LV Fractional Shortening (2D) 23 % 25-43 LV EF (2D Teicholz) 46 % 52-72 LV Diastolic Volume (4C MOD) 98 ml LV EF (4C MOD) 38 % LV Diastolic Volume (2C MOD) 134 ml LV EF (2C MOD) 32 % LV Diastolic Volume (BP MOD) 116 ml 62-150 LV Diastolic Volume Index (BP MOD) 55 ml/m2 34-74 LV Systolic Volume (BP MOD) 80 ml 21-61 LV Systolic Volume Index (BP MOD) 38 ml/m2 11-31 LV EF (BP MOD) 31 % 52-72 LV Diastolic Length (4C) 8.0 cm LV Systolic Length (4C) 7.1 cm LV Stroke Volume (4C MOD) 38 ml Report Signatures
[2022-01-09 06:02] LABS: Hematocrit 34.4 % (42.0-52.0); Hemoglobin 11.6 g/dL (14.0-18.0); Mean Corpuscular HGB Conc 33.7 g/dl (32-36); Mean Corpuscular Volume 97.7 fl (80-100); Mean Platelet Volume 10.6 fl (7.4-10.4); Platelet Count Result 223 k/mm3 (150-375); Red Blood Count 3.52 M/mm3 (4.6-6.20); Red Cell Distribution Width 13.2 % (11.5-14.5); White Blood Count 9.5 K/mm3 (4.5-10.0)
[2022-01-09] MEDS: LEVOTHYROXINE SODIUM 50 MCG TABLET PO (06:17)
[2022-01-09 06:55] LABS: Anion Gap 10 mmol/L (8-16); Blood Urea Nitrogen 23 mg/dL (9-20); Calcium 7.5 mg/dL (8.4-10.2); Carbon Dioxide 21 mmol/L (22-30); Chloride 104 mmol/L (98-107); Estimated CRCL calculation 50 ml/min; Estimated Glomerular Filt Rate > 60; Glucose 173 mg/dL (65-110); Sodium 135 mmol/L (137-145)
--- NOTE | 2022-01-09 06:57 | ECG_ITS ---
Measurements Intervals [place] Rate: 100 P: [place]: 0 QRS: -3 QRSD: 109 T: -28 QT: 355 QTc: 460 Interpretive Statements ATRIAL FIBRILLATION WITH RAPID VENTRICULAR RESPONSE INFERIOR MYOCARDIAL INFARCTION, OF INDETERMINATE AGE [40+ ms Q WAVE AND/OR ST/T ABNORMALITY IN II/aVF] ABNORMAL ECG COMPARED TO ECG 01/08/2022 11:23:56 MYOCARDIAL INFARCT FINDING NOW PRESENT Electronically Signed On 01-09-2022 17:45:42 CDT by Escobar Cantu M.D.
[2022-01-09 07:21] LABS: Glucose Point of Care 171 mg/dl (65-105)
[2022-01-09 07:59] LABS: Prothrombin Time 21.9 Seconds (11.1-14.7)
[2022-01-09] MEDS: VITAMIN E 400 UNIT CAPSULE PO (08:37)
[2022-01-09] MEDS: GABAPENTIN 300 MG CAPSULE PO ×4 (08:37→21:27)
[2022-01-09] MEDS: TAMSULOSIN HCL 0.4 MG CAPSULE PO (08:37)
[2022-01-09] MEDS: VITAMIN B COMPLEX CAPSULE 1 CAP PO (08:37)
[2022-01-09] MEDS: ASPIRIN 81 MG ENTERIC TABLET PO (08:37)
[2022-01-09] MEDS: PANTOPRAZOLE 40 MG TABLET PO ×2 (08:37→21:27)
[2022-01-09] MEDS: OMEGA 3 POLYUNSAT FATTY ACIDS 1 GM CAP PO (08:38)
[2022-01-09] MEDS: DOCUSATE SODIUM 100 MG CAPSULE PO (08:38)
[2022-01-09] MEDS: AMIODARONE HCL 200 MG TABLET PO ×2 (08:38→21:27)
[2022-01-09] MEDS: LOSARTAN POTASSIUM 100 MG TABLET PO (08:38)
[2022-01-09] MEDS: amLODIPine BESYLATE 5 MG TABLET PO (08:38)
[2022-01-09] MEDS: PRAVASTATIN SODIUM 20 MG TABLET 40 MG PO (08:38)
[2022-01-09] MEDS: METOPROLOL TARTRATE 25 MG TABLET PO ×2 (08:39→21:29)
[2022-01-09] MEDS: OPTI-GEN TAB 1 TABLET PO (08:39)
[2022-01-09] MEDS: buPROPion HCL 100 MG TABLET 200 MG PO (08:39)
--- NOTE | 2022-01-09 09:03 | PM.PNCARD ---
Progress Note: A&P Assessment and Plan (1) Elevated troponin: Code(s): R77.8 - Other specified abnormalities of plasma proteins Status: Acute Assessment and Plan: Peaked at .07, trended down, then spiked to 5. Symptoms are not suggestive of ACS. EKG does not show ischemia. Likely due to pneumonia with acute renal failure. Echo shows EF 60-65%, mild biatrial enlargement, trace AI/PI, mild MR/TR. Trend troponin to peak. Obtain limited echo to assess for new wall motion abnormalities. (2) Pneumonia: Qualifiers: Laterality: right Lung location: lower lobe of lung Pneumonia type: due to unspecified organism Qualified Code(s): J18.9 - Pneumonia, unspecified organism Code(s): J18.9 - Pneumonia, unspecified organism Status: Acute Assessment and Plan: On antibiotics as per hospitalist. (3) Acute kidney injury: Code(s): N17.9 - Acute kidney failure, unspecified Status: Acute Assessment and Plan: Monitor and received IVF. (4) CAD (coronary artery disease): Code(s): I25.10 - Atherosclerotic heart disease of [place] coronary artery without angina pectoris Status: Acute Assessment and Plan: Stable. His regular oxide furnace tender is Dr. Baca at [facility] [place] was planning on doing a nuclear stress test. (5) PAF (paroxysmal atrial fibrillation): Code(s): I48.0 - Paroxysmal atrial fibrillation Status: Acute Assessment and Plan: On Amiodarone and Xarelto and was maintaining normal rhythm. Increased Amiodarone 200 mg PO BID to restore sinus rhythm. He probably had atrial fib with RVR at 108 bpm with aberrancy vs NSVT on 01/08/22. Start Metoprolol Tartate 25 mg PO BID. Subjective Date/time seen: 01/09/22 09:03 Reports deep inspiration and coughing induced left sided chest pain. Has some sob and coughing. Exam Const: General: cooperative, healthy appearing and comfortable Resp: Auscultation: clear to auscultation bilaterally, crackles on the right, no rales, no rhonchi and no wheezes Cardio: Jugular venous distension: no JVD Rate: regular rate Rhythm: regular rhythm Heart sounds: no murmurs Peripheral pulses: dorsalis pedis present GI: GI Palp: No abdominal tenderness and Yes Soft to palpation Neuro: General: oriented to person, oriented to place and oriented to time Extrem: Right lower extremity: no edema Left lower extremity: no edema Objective Data Vital Signs Vital Signs: Vital Signs - 24 hr 01/08/22 12:00 01/08/22 12:00 01/08/22 16:00 Temperature 98.1 F Pulse Rate 107 H 105 H 92 Respiratory Rate 24 H Blood Pressure 121/72 Pulse Oximetry 90 01/08/22 16:00 01/08/22 17:12 01/08/22 20:44 Temperature 97.9 F 98.0 F 97.9 F Pulse Rate 100 100 75 Respiratory Rate 20 18 24 H Blood Pressure 152/86 H 145/88 H 115/74 Pulse Oximetry 92 95 100 01/08/22 20:48 01/08/22 20:00 01/09/22 00:00 Temperature Pulse Rate 81 83 98 Respiratory Rate Blood Pressure Pulse Oximetry 01/09/22 01:48 01/09/22 05:35 01/09/22 04:00 Temperature 98 F 97.7 F Pulse Rate 93 84 87 Respiratory Rate 20 20 Blood Pressure 134/64 130/72 Pulse Oximetry 97 92 Intake/Output Intake/Output: Intake & Output 01/06/22 01/07/22 01/08/22 01/09/22 23:59 23:59 23:59 23:59 Intake Total 220 4890 240 Output Total 700 2660 425 Balance -480 2230 -185 Meds/Results Medications: Active Medications Generic Name Dose Route Start Last Admin Trade Name Freq PRN Reason Stop Dose Admin Acetaminophen 650 mg 01/07/22 20:40 01/08/22 14:52 Acetaminophen 325 Mg Tablet PO 650 mg Q6H PRN Administration Mild Pain (1-3) or Fever Albuterol 1 puff 01/07/22 20:41 Albuterol Sulfate (*Sp) Aerosol 1 Puff INHALATION Q4HRT PRN Shortness Of Breath Amiodarone HCl 200 mg 01/08/22 09:00 01/09/22 08:38 Amiodarone Hcl 200 Mg Tablet PO 200 mg Q12HR ASTER Administration Amlodipine Besyla
--- NOTE | 2022-01-09 11:49 | PM.IMPN ---
Progress Note: A&P Assessment and Plan (1) Pneumonia: Qualifiers: Laterality: right Lung location: lower lobe of lung Pneumonia type: due to unspecified organism Qualified Code(s): J18.9 - Pneumonia, unspecified organism Code(s): J18.9 - Pneumonia, unspecified organism Status: Acute Assessment and Plan: CT scan noted, right-sided pneumonia continue antibiotics. (2) Acute kidney injury: Code(s): N17.9 - Acute kidney failure, unspecified Status: Acute Assessment and Plan: Monitor kidney function and electrolytes (3) Elevated troponin: Code(s): R77.8 - Other specified abnormalities of plasma proteins Status: Acute Assessment and Plan: Cardiology has been consult and do appreciate further recommendations. (4) Diabetes: Qualifiers: Diabetes mellitus type: type 2 Diabetes mellitus chcf insulin use: without medical terminologist use Diabetes mellitus complication status: with circulatory complication Diabetes mellitus complication detail: with other circulatory complications Qualified Code(s): E11.59 - Type 2 diabetes mellitus with other circulatory complications Code(s): E11.9 - Type 2 diabetes mellitus without complications Status: Acute Assessment and Plan: Monitor blood sugar Subjective Date/time seen: 01/09/22 11:49 No more chest pain Exam Narrative: Constitutional: Patient is well-nourished in no acute distress. Patient is alert and oriented x3 HEENT: Moist mucous membranes. No scleral icterus. No lymphadenopathy. Neck: No carotid bruits noted no JVD noted Lungs: crackles noted to right lower lobe. No wheezing or rhonchi noted. Cardiovascular: Apical pulse is regular rate and rhythm. S1-S2 noted, no S3 or S4 noted. No gallops, murmurs, or rubs noted. Abdomen: Soft, round, and nontender. No palpable masses. Extremities: No edema. Nontender. Skin: No rashes or lesions. Warm and dry. Skin is intact. Neurological: No focal neurological deficits. Cranial nerves II-XII grossly intact. Psychiatric: Cooperative, appropriate mood, and affect Objective Data Vital Signs Vital Signs: Vital Signs - 24 hr 01/08/22 12:00 01/08/22 12:00 01/08/22 16:00 Temperature 98.1 F Pulse Rate 107 H 105 H 92 Respiratory Rate 24 H Blood Pressure 121/72 Pulse Oximetry 90 Oxygen Delivery 01/08/22 16:00 01/08/22 17:12 01/08/22 20:44 Temperature 97.9 F 98.0 F 97.9 F Pulse Rate 100 100 75 Respiratory Rate 20 18 24 H Blood Pressure 152/86 H 145/88 H 115/74 Pulse Oximetry 92 95 100 Oxygen Delivery 01/08/22 20:48 01/08/22 20:00 01/09/22 00:00 Temperature Pulse Rate 81 83 98 Respiratory Rate Blood Pressure Pulse Oximetry Oxygen Delivery 01/09/22 01:48 01/09/22 05:35 01/09/22 04:00 Temperature 98 F 97.7 F Pulse Rate 93 84 87 Respiratory Rate 20 20 Blood Pressure 134/64 130/72 Pulse Oximetry 97 92 Oxygen Delivery 01/09/22 08:00 01/09/22 08:00 01/09/22 09:18 Temperature 98.0 F Pulse Rate 94 87 Respiratory Rate 18 Blood Pressure 145/93 H Pulse Oximetry 96 Oxygen Delivery Room Air Intake/Output Intake/Output: Intake & Output 01/06/22 01/07/22 01/08/22 01/09/22 23:59 23:59 23:59 23:59 Intake Total 220 4890 240 Output Total 700 2660 425 Balance -480 2230 -185 Meds/Results Medications: Active Medications Generic Name Dose Route Start Last Admin Trade Name Freq PRN Reason Stop Dose Admin Acetaminophen 650 mg 01/07/22 20:40 01/08/22 14:52 Acetaminophen 325 Mg Tablet PO 650 mg Q6H PRN Administration Mild Pain (1-3) or Fever Albuterol 1 puff 01/07/22 20:41 Albuterol Sulfate (*Sp) Aerosol 1 Puff INHALATION Q4HRT PRN Shortness Of Breath Amiodarone HCl 200 mg 01/08/22 09:00 01/09/22 08:38 Amiodarone Hcl 200 Mg Tablet PO 200 mg Q12HR ASTER Administration Amlodipine Besylate 5 mg 01/08/22 09:0
[2022-01-09 12:48] LABS: Glucose Point of Care 260 mg/dl (65-105)
[2022-01-09] MEDS: INSULIN ASPART (*BKC) 100 UNITS/ML SUB-Q ×2 (13:04→17:24)
[2022-01-09] MEDS: TICAGRELOR 90 MG TABLET 180 MG PO (13:59)
[2022-01-09 14:12] LABS: Hematocrit 36.3 % (42.0-52.0); Hemoglobin 12.5 g/dL (14.0-18.0); Mean Corpuscular HGB Conc 34.4 g/dl (32-36); Mean Corpuscular Hemoglobin 33.2 pg (26-34); Mean Corpuscular Volume 96.5 fl (80-100); Mean Platelet Volume 10.4 fl (7.4-10.4); Platelet Count Result 250 k/mm3 (150-375); Red Blood Count 3.76 M/mm3 (4.6-6.20); Red Cell Distribution Width 13.3 % (11.5-14.5); White Blood Count 8.9 K/mm3 (4.5-10.0)
[2022-01-09 14:24] LABS: INR 1.5; Partial Thromboplastin Time 31.4 SECONDS (22.3-36.8); Prothrombin Time 17.9 Seconds (11.1-14.7)
[2022-01-09 15:34] LABS: Band Neutrophils Percent 6 % (0-6); Lymphocytes Absolute Manual 0.62 K/mm3 (1.1-4.5); Monocytes Absolute Manual 0.44 K/mm3 (0.1-0.90); Monocytes Percent Manual 5 % (3-9); Neutrophils Absolute Manual 7.83 K/mm3 (1.3-6.7); Neutrophils Percent Manual 82 % (46-73); Nucleated Red Blood Cells 1 %; Platelet Estimate Adequate (Adequate); Total Cells Counted 100
[2022-01-09 16:36] LABS: Glucose Point of Care 219 mg/dl (65-105)
[2022-01-09] MEDS: FUROSEMIDE INJ 40 MG/4 ML VIAL IV PUSH (17:24)
[2022-01-09 20:27] LABS: Glucose Point of Care 183 mg/dl (65-105)
[2022-01-09] MEDS: TICAGRELOR 90 MG TABLET PO (21:27)
[2022-01-09] MEDS: hydrOXYzine HCL 10 MG TABLET PO (21:28)
[2022-01-10] VITALS (26 sets, daily range): BP systolic 93–129; BP diastolic 58–79; PULSE 58–102; RESP 15–26; TEMP 36.1–36.9; O2SAT 92–97
[2022-01-10] MEDS: LEVOTHYROXINE SODIUM 50 MCG TABLET PO (05:23)
[2022-01-10 05:36] LABS: Basophils Absolute Auto 0.1 K/mm3 (0.0-0.1); Basophils Percent Auto 0.4 % (0.2-1.2); Eosinophils Absolute Auto 0.2 K/mm3 (0-0.3); Eosinophils Percent Auto 1.2 % (0-4.4); Hematocrit 34.3 % (42.0-52.0); Hemoglobin 12.2 g/dL (14.0-18.0); Immature Granulocyte Absolute 0.36 K/mm3 (0.00-0.031); Lymphocytes Absolute Auto 0.65 K/mm3 (0.9-3.2); Lymphocytes Percent Auto 5.4 % (18.3-44.2); Mean Corpuscular HGB Conc 35.6 g/dl (32-36); Mean Corpuscular Hemoglobin 33.1 pg (26-34); Mean Platelet Volume 10.4 fl (7.4-10.4); Monocytes Absolute Auto 0.9 K/mm3 (0.1-0.6); Monocytes Percent Auto 7.1 % (2.6-8.5); Neutrophils Percent Auto 82.9 % (45.5-73.1); Nucleated Red Blood Cells Perc 0.3 % (0.0-0.2); Platelet Count Result 304 k/mm3 (150-375); Red Blood Count 3.69 M/mm3 (4.6-6.20)
--- NOTE | 2022-01-10 07:06 | ECG_ITS ---
Measurements Intervals [place] Rate: 82 P: [place]: 0 QRS: -4 QRSD: 104 T: -58 QT: 410 QTc: 481 Interpretive Statements ATRIAL FIBRILLATION INFERIOR MYOCARDIAL INFARCTION , OF INDETERMINATE AGE [40+ ms Q WAVE AND/OR ST/T ABNORMALITY IN II/aVF] ABNORMAL ECG COMPARED TO ECG 01/09/2022 09:22:54 NO SIGNIFICANT CHANGES Electronically Signed On 01-10-2022 16:58:25 CDT by Escobar Cantu M.D.
[2022-01-10 07:43] LABS: Glucose Point of Care 161 mg/dl (65-105)
[2022-01-10] MEDS: HEPARIN SOD/D5W 100 UNITS/ML 25,000 UNITS/250 ML BAG 9 UNITS IV CONT (07:47)
[2022-01-10] MEDS: HEPARIN SODIUM 5,000 UNITS/ML VIAL 2000 UNITS IV PUSH (07:50)
--- NOTE | 2022-01-10 07:54 | PM.PNCARD ---
Progress Note: A&P Assessment and Plan (1) Elevated troponin: Code(s): R77.8 - Other specified abnormalities of plasma proteins Status: Acute Assessment and Plan: Peaked at .07, trended down, then spiked to 5. Symptoms are not suggestive of ACS. EKG does not show ischemia. Likely due to pneumonia with acute renal failure. Echo shows EF 60-65%, mild biatrial enlargement, trace AI/PI, mild MR/TR. Trend troponin to peak. (2) Pneumonia: Qualifiers: Laterality: right Lung location: lower lobe of lung Pneumonia type: due to unspecified organism Qualified Code(s): J18.9 - Pneumonia, unspecified organism Code(s): J18.9 - Pneumonia, unspecified organism Status: Acute Assessment and Plan: On antibiotics as per hospitalist. (3) Acute kidney injury: Code(s): N17.9 - Acute kidney failure, unspecified Status: Acute Assessment and Plan: Monitor and received IVF. (4) CAD (coronary artery disease): Code(s): I25.10 - Atherosclerotic heart disease of [place] coronary artery without angina pectoris Status: Acute Assessment and Plan: Stable. His regular real estate underwriter is Dr. Baca at [facility] [place] was planning on doing a nuclear stress test. (5) PAF (paroxysmal atrial fibrillation): Code(s): I48.0 - Paroxysmal atrial fibrillation Status: Acute Assessment and Plan: On Amiodarone and Xarelto and was maintaining normal rhythm. Increased Amiodarone 200 mg PO BID to restore sinus rhythm. He probably had atrial fib with RVR at 108 bpm with aberrancy vs NSVT on 01/08/22. Started Metoprolol Tartate 25 mg PO BID. (6) NSTEMI (non-ST elevated myocardial infarction): Code(s): I21.4 - Non-ST elevation (NSTEMI) myocardial infarction Status: Acute Assessment and Plan: EKG has evidence of inferior infarct that is recent. Limited echo shows EF 40% with entire inferior wall severely hypokinetic. RV dilated and hypokinetic. On aspirin, start heparin drip now as he was on Xarelto and last dose 1.5 days ago. On Metoprolol, Losartan, Pravastatin. Discuss risks/benefits/alternative treatment of left heart cath and he is agreeable for procedure. Notified HCG and spoke with Dr. Cantu extensively. Obtain EKG, labs, troponin. (7) Systolic dysfunction: Code(s): I51.9 - Heart disease, unspecified Status: Acute Subjective Date/time seen: 01/10/22 07:54 Reports chest pain only with deep inspiration or movement. Had sob last night but not now. Exam Const: General: cooperative, healthy appearing and comfortable Resp: Auscultation: clear to auscultation bilaterally, crackles on the right, no rales, no rhonchi and no wheezes Cardio: Jugular venous distension: no JVD Rate: regular rate Rhythm: regular rhythm Heart sounds: no murmurs Peripheral pulses: dorsalis pedis present GI: GI Palp: No abdominal tenderness and Yes Soft to palpation Neuro: General: oriented to person, oriented to place and oriented to time Extrem: Right lower extremity: no edema Left lower extremity: no edema Objective Data Vital Signs Vital Signs: Vital Signs - 24 hr 01/09/22 08:00 01/09/22 08:00 01/09/22 09:18 Temperature 98.0 F Pulse Rate 94 87 Respiratory Rate 18 Blood Pressure 145/93 H Pulse Oximetry 96 Oxygen Delivery Room Air 01/09/22 14:01 01/09/22 12:00 01/09/22 16:00 Temperature 97.7 F Pulse Rate 71 78 83 Respiratory Rate 18 Blood Pressure 107/71 Pulse Oximetry 96 Oxygen Delivery 01/09/22 20:18 01/09/22 21:27 01/09/22 21:29 Temperature 98.5 F Pulse Rate 93 79 79 Respiratory Rate 18 Blood Pressure 114/78 Pulse Oximetry 95 Oxygen Delivery 01/09/22 20:00 01/10/22 00:00 01/10/22 04:00 Temperature Pulse Rate 81 95 80 Respiratory Rate Blood Pressure Pulse Oximetry Oxygen Delivery 01/10/22 04:00 Temperature 98.5 F Pulse Rate 87 Respiratory Rate 16 B
[2022-01-10] MEDS: amLODIPine BESYLATE 5 MG TABLET PO (08:23)
[2022-01-10] MEDS: OPTI-GEN TAB 1 TABLET PO (08:23)
[2022-01-10] MEDS: PRAVASTATIN SODIUM 20 MG TABLET 40 MG PO (08:23)
[2022-01-10] MEDS: buPROPion HCL 100 MG TABLET 200 MG PO (08:23)
[2022-01-10 08:24] LABS: Alanine Aminotransferase 106 U/L (6-50); Albumin Level 2.8 g/dL (3.5-5.1); Alkaline Phosphatase 252 U/L (38-126); Anion Gap 7 mmol/L (8-16); Aspartate Amino Transferase 129 U/L (17-59); Bilirubin,Total 1.7 mg/dL (0.2-1.3); Blood Urea Nitrogen 32 mg/dL (9-20); Calcium 7.9 mg/dL (8.4-10.2); Carbon Dioxide 24 mmol/L (22-30); Chloride 104 mmol/L (98-107); Estimated CRCL calculation 30 ml/min; Estimated Glomerular Filt Rate 35; Glucose 164 mg/dL (65-110); Potassium 4.1 mmol/L (3.4-5.0); Sodium 135 mmol/L (137-145)
[2022-01-10] MEDS: GABAPENTIN 300 MG CAPSULE PO ×2 (08:24→21:20)
[2022-01-10] MEDS: OMEGA 3 POLYUNSAT FATTY ACIDS 1 GM CAP PO (08:24)
[2022-01-10] MEDS: PANTOPRAZOLE 40 MG TABLET PO ×2 (08:24→21:21)
[2022-01-10] MEDS: LOSARTAN POTASSIUM 100 MG TABLET PO (08:24)
[2022-01-10] MEDS: VITAMIN B COMPLEX CAPSULE 1 CAP PO (08:24)
[2022-01-10] MEDS: TAMSULOSIN HCL 0.4 MG CAPSULE PO (08:24)
[2022-01-10] MEDS: ASPIRIN 81 MG ENTERIC TABLET PO (08:24)
[2022-01-10] MEDS: TICAGRELOR 90 MG TABLET PO ×2 (08:24→21:20)
[2022-01-10] MEDS: AMIODARONE HCL 200 MG TABLET PO ×2 (08:25→21:20)
[2022-01-10] MEDS: VITAMIN E 400 UNIT CAPSULE PO (08:26)
[2022-01-10] MEDS: FLUTICASONE PROPIONATE 0.05% NA SPR 16 GM BTL (*BKC) 2 SPRAY NASAL (08:29)
[2022-01-10] MEDS: DOCUSATE SODIUM 100 MG CAPSULE PO (09:17)
[2022-01-10] MEDS: METOPROLOL TARTRATE 25 MG TABLET PO ×2 (09:17→21:19)
[2022-01-10] MEDS: ALBUTEROL SULFATE (*SP) AEROSOL 1 PUFF INHALATION (09:46)
--- NOTE | 2022-01-10 10:59 | PM.IMPN ---
Progress Note: A&P Assessment and Plan (1) Pneumonia: Qualifiers: Laterality: right Lung location: lower lobe of lung Pneumonia type: due to unspecified organism Qualified Code(s): J18.9 - Pneumonia, unspecified organism Code(s): J18.9 - Pneumonia, unspecified organism Status: Acute Assessment and Plan: CT scan noted, right-sided pneumonia continue antibiotics. Continue oxygen as needed (2) Acute kidney injury: Code(s): N17.9 - Acute kidney failure, unspecified Status: Acute Assessment and Plan: Monitor kidney function and electrolytes Creatinine slightly worse today. Will Consul Nephrology urine lytes ordered (3) Elevated troponin: Code(s): R77.8 - Other specified abnormalities of plasma proteins Status: Acute Assessment and Plan: Likely MD of the RCA her echo results. Cardiology is aware following. 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 Ongoing cough which is nonproductive. No new substernal chest pain noted. Exam Narrative: Constitutional: Patient is well-nourished in no acute distress. Patient is alert and oriented x3 HEENT: Moist mucous membranes. No scleral icterus. No lymphadenopathy. Neck: No carotid bruits noted no JVD noted Lungs: crackles noted to right lower lobe. No wheezing or rhonchi noted. Cardiovascular: Apical pulse is regular rate and rhythm. S1-S2 noted, no S3 or S4 noted. No gallops, murmurs, or rubs noted. Abdomen: Soft, round, and nontender. No palpable masses. Extremities: No edema. Nontender. Skin: No rashes or lesions. Warm and dry. Skin is intact. Neurological: No focal neurological deficits. Cranial nerves II-XII grossly intact. Psychiatric: Cooperative, appropriate mood, and affect Objective Data Vital Signs Vital Signs: Vital Signs - 24 hr 01/09/22 14:01 01/09/22 12:00 01/09/22 16:00 Temperature 97.7 F Pulse Rate 71 78 83 Respiratory Rate 18 Blood Pressure 107/71 Pulse Oximetry 96 Oxygen Delivery Oxygen Flow Rate 01/09/22 20:18 01/09/22 21:27 01/09/22 21:29 Temperature 98.5 F Pulse Rate 93 79 79 Respiratory Rate 18 Blood Pressure 114/78 Pulse Oximetry 95 Oxygen Delivery Oxygen Flow Rate 01/09/22 20:00 01/10/22 00:00 01/10/22 04:00 Temperature Pulse Rate 81 95 80 Respiratory Rate Blood Pressure Pulse Oximetry Oxygen Delivery Oxygen Flow Rate 01/10/22 04:00 01/10/22 08:00 01/10/22 09:49 Temperature 98.5 F 98.2 F Pulse Rate 87 58 L 102 H Respiratory Rate 16 20 20 Blood Pressure 100/58 L 129/73 Pulse Oximetry 96 96 Oxygen Delivery Oxygen Flow Rate 01/10/22 09:52 Temperature Pulse Rate 102 H Respiratory Rate 20 Blood Pressure Pulse Oximetry 95 Oxygen Delivery Nasal Cannula Oxygen Flow Rate 2 Intake/Output Intake/Output: Intake & Output 01/07/22 01/08/22 01/09/22 01/10/22 23:59 23:59 23:59 23:59 Intake Total 220 4890 1270 100 Output Total 700 2328 4290 [address] [place] [id number] [phone] Meds/Results Medications: Active Medications Generic Name Dose Route Start Last Admin Trade Name Freq PRN Reason Stop Dose Admin Acetaminophen 650 mg 01/07/22 20:40 01/08/22 14:52 Acetaminophen 325 Mg Tablet PO 650 mg Q6H PRN Administration Mild Pain (1-3) or Fever Albuterol 1 puff 01/07/22 20:41 01/10/22 09:46
[2022-01-10 11:32] LABS: Glucose Point of Care 168 mg/dl (65-105)
--- NOTE | 2022-01-10 14:16 | WPDHPUPDATE1 ---
History and Physical Update Update Date/Time: 01/10/22 14:16 History and Physical has been reviewed, including an updated exam of the patient. There are NO changes in the patient's condition. Risks, benefits, and alternatives have been discussed and questions answered. Patient agrees to proceed with procedure.
--- NOTE | 2022-01-10 14:16 | WPDMODSED ---
Moderate Sedation Note-Pt Data Patient Data Allergies Allergy/AdvReac Type Severity Reaction Status Date / Time No Known Allergies Allergy Verified 01/07/22 10:22 Home Medications Medication Instructions Recorded Confirmed Type albuterol sulfate 90 mcg/actuation 1 puff inhalation Q4H PRN 08/15/19 01/07/22 History aerosol inhaler Shortness Of Breath amiodarone 200 mg tablet 100 mg PO DAILY 08/15/19 01/07/22 History amlodipine 5 mg tablet 5 mg PO DAILY 08/15/19 01/07/22 History aspirin 81 mg tablet,delayed 81 mg PO DAILY 08/15/19 01/07/22 History release (Adult Low Dose Aspirin) hydroxyzine HCl 10 mg tablet 10 mg PO HS 08/15/19 01/07/22 History losartan 100 mg tablet 100 mg PO DAILY 08/15/19 01/07/22 History metformin 1,000 mg tablet 1,000 mg PO DAILY 08/15/19 01/07/22 History cmetscbyfqpz-czpmklou-kpfdrl tablet 1 tablet PO DAILY 08/15/19 01/07/22 History omega-3 fatty acids 1,000 mg 1,000 mg PO DAILY 08/15/19 01/07/22 History capsule (Fish Oil Concentrate) omeprazole 40 mg capsule,delayed 40 mg PO DAILY 08/15/19 01/07/22 History release pravastatin 40 mg tablet 40 mg PO DAILY #90 tabs 08/15/19 01/07/22 Rx rivaroxaban 20 mg tablet (Xarelto) 20 mg PO 1700 08/15/19 01/07/22 History tamsulosin 0.4 mg capsule 0.4 mg PO DAILY 08/15/19 01/07/22 History tramadol 50 mg tablet 50 mg PO Q6H PRN Pain 08/15/19 01/07/22 History vitamin E (dl, acetate) 180 mg 400 unit PO DAILY 08/15/19 01/07/22 History (400 unit) capsule lancets 30 gauge (Ultra Fine #100 ea 10/11/19 01/07/22 Rx Lancets) lancing device #1 ea 10/11/19 01/07/22 Rx gabapentin 300 mg capsule 300 mg PO QID 08/14/20 01/07/22 History bupropion HCl 100 mg tablet 200 mg PO DAILY 02/13/21 01/07/22 History docusate sodium 100 mg capsule 100 mg PO DAILY 02/13/21 01/07/22 History vitamin B complex (B 1 tablet PO DAILY 02/13/21 01/07/22 History Complex-Vitamin B12 tablet) acetaminophen 500 mg capsule 500 mg PO Q12H PRN Muscle Pain 11/04/21 01/07/22 History testosterone cypionate 200 mg/mL 200 mg IM .EVERY 2 WEEKS #10 mL 11/04/21 01/07/22 Rx intramuscular oil (Depo-Testosterone) fluticasone propionate 50 2 spray intranasal DAILY #16 grams 11/05/21 01/07/22 Rx mcg/actuation nasal spray,suspension (Allergy Relief (fluticasone)) Contour Next Test Strips (blood See Rx Instructions .Route 12/27/21 01/07/22 Rx sugar diagnostic) .COMPLEX #100 strips levothyroxine 50 mcg tablet 50 mcg PO DAILY 01/07/22 01/07/22 History Current Medications: Active Medications Acetaminophen (Acetaminophen 325 Mg Tablet) 650 mg PO Q6H PRN PRN Reason: Mild Pain (1-3) or Fever Last Admin: 01/08/22 14:52 Dose: 650 mg Albuterol (Albuterol Sulfate (*Sp) Aerosol 1 Puff) 1 puff INHALATION Q4HRT PRN PRN Reason: Shortness Of Breath Last Admin: 01/10/22 09:46 Dose: 1 puff Amiodarone HCl (Amiodarone Hcl 200 Mg Tablet) 200 mg PO Q12HR [facility] Last Admin: 01/10/22 08:25 Dose: 200 mg Amlodipine Besylate (Amlodipine Besylate 5 Mg Tablet) 5 mg PO DAILY [facility] Last Admin: 01/10/22 08:23 Dose: 5 mg Aspirin (Aspirin 81 Mg Enteric Tablet) 81 mg PO DAILY [facility] Last Admin: 01/10/22 08:24 Dose: 81 mg Bupropion HCl (Bupropion Hcl 100 Mg Tablet) 200 mg PO DAILY [facility] Last Admin: 01/10/22 08:23 Dose: 200 mg Dextrose (Dextrose 50% 25 Gm/50 Ml Syringe) 12.5 gm IV PUSH PRN PRN; Protocol PRN Reason: Hypoglycemia Docusate Sodium (Docusate Sodium 100 Mg Capsule) 100 mg PO DAILY [facility] Last Admin: 01/10/22 09:17 Dose: 100 mg Fish Oil ([place] 3 Polyunsat Fatty Acids 1 Gm Cap) 1 gm PO DAILY [facility] Last Admin: 01/10/22 08:24 Dose: 1 gm Fluticasone Propionate (Fluticasone Propionate 0.05% Na Spr 16 Gm Btl (*Bkc)) 2 spray NASAL DAILY [facility] Last Admin: 01/10/22 08:29 Dose: 2 spray Gabapentin (Gabapentin 300 Mg Capsule) 300 mg PO QID [facility] Last Admin: 01/10/22 13:27 Dose: Not Given Glucagon (Glucagon For Inj 1 Mg Vial) 1 mg IM PRN PRN; Protocol PRN Reason: Hypoglycemia G
--- NOTE | 2022-01-10 14:17 | WPDCARDPROC ---
Cardiac Cath Procedure Note Date of procedure:: 01/10/22 Performing physician:: Edmundo Thompson MD Indication:: NSTEMI Brief clinical history:: this 76-year-old patient with past medical history of CABG a history of 6 stents. his last cardiac catheterization 2016 and at that received 2 drug-eluting stents with diameter size 2.5 mm covering mid to distal as well as proximal RCA. at that time his GARIBAY to LAD was patent with T graft radial coming from the GARIBAY to OM was also patent. he was admitted here to the hospital with cough, fever for 6 days and was being treated for pneumonia. Apparently was found to have elevated troponins. EKG did not show jyotsna ST elevations. Apparently his echocardiogram on admission showed normal ejection fraction but later on checked and was found to have dilated right ventricle and reduced LV systolic function as well. Due to elevated troponins he was brought into paving and surfacing labourer to define coronary anatomy. Procedure Procedure performed:: 1-Moderate sedation that started at 11:59 a.m. and ended at 1:47 p.m. with total duration 1 hour and 48 minutes using 1mg of Versed and 25mcg fentanyl. The registered nurse was 2-Selective left and right coronary angiogram. 3-Left heart catheterization with measurement of LVEDP and measurement of gradient across aortic valve. 4- aspiration thrombectomy of the right coronary artery using penumbra. 5- intravascular ultrasound of the right coronary artery. 6- balloon angioplasty using 3 .5 mm balloon to expand the stent in the proximal RCA and half the stent of the mid segment at a site of InStent restenosis. 7-Right common femoral arterial angiogram. Sedation/Medication given:: Moderate sedation. Access site:: Right common femoral artery. Estimated blood loss:: 10cc Procedure note:: After informed consent patient was brought in to paving and surfacing labourer with the was draped and prepped in usual manner. Moderate sedation was given and the right groin was infiltrated using 1% lidocaine. Five Greek sheath was obtained using micropuncture needle and the modified Seldinger technique. Selective left coronary angiogram was done using JL4 catheter with the tip of the catheter placed in the left main coronary artery. Selective right coronary angiogram was done using JR4 catheter with the tip of the catheter placed to the right coronary artery. After that 5 Greek pigtail catheter was advanced across the aortic valve into the left ventricle with measurement of LVEDP and measurement of gradient across aortic valve. Right common femoral arterial angiogram was done. subsequently the 5 Greek sheath was upgraded to 6 Greek sheath and then we went initially with a guide catheter the JR4 and we could not achieve good engagement and therefore we took WRP guide catheter and then we used Jewel Bearing Grinder 150 wire and advanced to distal RCA and subsequently took put number a aspiration catheter but we could not advance it beyond the proximal RCA. at that time I realized that this is more intimal hyperplasia at the stent location with ruptured plaque. Therefore I took 2.5 x 15 balloon and we ballooned the proximal segment with several inflations each under normal pressure for 25 seconds and then intravascular ultrasound was done and subsequent the expansion of the stent was done using 3.5 x 15 balloon under nominal pressure for 25 seconds we did that probably 6-7 times. there was residual stenosis between the proximal and mid RCA stents about 50%. Findings:: 1- left coronary artery is a large artery that divides into large LAD, large circumflex artery. Left main has minimal irregularities. 2- left anterior descending artery is a large artery severely diffusely diseased proximally and totally occluded in the mid segment. 3- leftcircumflex artery is Totally occluded proximally. 4- right coronary artery is totally occluded proximally at the level of the proximal stent. RCA is covered with the stent in the proximal segment and th
--- NOTE | 2022-01-10 17:18 | ECG_ITS ---
Measurements Intervals [place] Rate: 68 P: 260 [place]: 131 QRS: 4 QRSD: 101 T: 1 QT: 421 QTc: 450 Interpretive Statements SINUS RHYTHM WITH SHORT [place] INTERVAL NONSPECIFIC ST & T-WAVE ABNORMALITY COMPARED TO THE PRIOR TRACING, SINUS RHYTHM HAS BEEN RESTORED Electronically Signed On 01-11-2022 9:21:10 CDT by Suyapa Arzola M.D.
--- NOTE | 2022-01-10 17:57 | PC.NURSE ---
Patient being transferred from Boiler Testing Technician to IMU. Report called to IMU RN @ [phone].
--- NOTE | 2022-01-10 18:15 | PC.NURSE ---
Patient received from CCL. Denies complaints of pain. No hematoma noted to right groin. Right pedal palpable and regular. Patient on 2L O2 per NC.
--- NOTE | 2022-01-10 18:33 | SUR.PHASEII ---
Pt taken to IMU via pt bed. Pt awake alert and oriented x3. Denies chest pain or SOB. Pt given instruction on care of right groin. Pt verbalize understanding of given instructions.
[2022-01-10 19:05] LABS: Glucose Point of Care 153 mg/dl (65-105)
[2022-01-10] MEDS: SODIUM CHLORIDE 0.9% IV 1,000 ML 125 ML IV CONT (21:20)
[2022-01-10] MEDS: hydrOXYzine HCL 10 MG TABLET PO (21:20)
[2022-01-10 21:36] LABS: Glucose Point of Care 168 mg/dl (65-105)
[2022-01-11] VITALS (16 sets, daily range): BP systolic 99–127; BP diastolic 53–65; PULSE 66–75; RESP 16–22; TEMP 36.1–36.9; O2SAT 90–96
[2022-01-11 00:34] LABS: Sodium Urine Random 57 meq/L
[2022-01-11 05:37] LABS: Basophils Absolute Auto 0.1 K/mm3 (0.0-0.1); Basophils Percent Auto 0.5 % (0.2-1.2); Eosinophils Absolute Auto 0.2 K/mm3 (0-0.3); Hematocrit 33.2 % (42.0-52.0); Hemoglobin 11.5 g/dL (14.0-18.0); Immature Granulocyte Absolute 0.56 K/mm3 (0.00-0.031); Lymphocytes Absolute Auto 0.64 K/mm3 (0.9-3.2); Lymphocytes Percent Auto 5.7 % (18.3-44.2); Mean Corpuscular HGB Conc 34.6 g/dl (32-36); Mean Corpuscular Volume 95.1 fl (80-100); Mean Platelet Volume 10.6 fl (7.4-10.4); Monocytes Absolute Auto 0.8 K/mm3 (0.1-0.6); Monocytes Percent Auto 6.7 % (2.6-8.5); Neutrophils Percent Auto 80.1 % (45.5-73.1); Platelet Count Result 334 k/mm3 (150-375); Red Blood Count 3.49 M/mm3 (4.6-6.20); Red Cell Distribution Width 13.4 % (11.5-14.5); White Blood Count 11.2 K/mm3 (4.5-10.0)
[2022-01-11 05:42] LABS: Alanine Aminotransferase 81 U/L (6-50); Albumin Level 2.7 g/dL (3.5-5.1); Alkaline Phosphatase 213 U/L (38-126); Anion Gap 8 mmol/L (8-16); Aspartate Amino Transferase 67 U/L (17-59); Bilirubin,Total 1.5 mg/dL (0.2-1.3); Blood Urea Nitrogen 39 mg/dL (9-20); Calcium 7.6 mg/dL (8.4-10.2); Carbon Dioxide 21 mmol/L (22-30); Chloride 106 mmol/L (98-107); Estimated CRCL calculation 31 ml/min; Estimated Glomerular Filt Rate 37; Glucose 155 mg/dL (65-110); Potassium 3.8 mmol/L (3.4-5.0); Sodium 135 mmol/L (137-145)
[2022-01-11] MEDS: LEVOTHYROXINE SODIUM 50 MCG TABLET PO (05:52)
--- NOTE | 2022-01-11 07:58 | PM.PNCARD ---
Progress Note: A&P Assessment and Plan (1) Elevated troponin: Code(s): R77.8 - Other specified abnormalities of plasma proteins Status: Acute Assessment and Plan: Peaked at .07, trended down, then peaked at 12. Symptoms are not suggestive of ACS. Likely due to pneumonia with acute renal failure, however given EKG changes, troponin rising and new wall motion abnormalities on echo, he was taken to slab polisher about 40 hours after last dose of Xarelto. Initial Echo shows EF 60-65%, mild biatrial enlargement, trace AI/PI, mild MR/TR. Then limited echo shows EF 40-45% with inferior wall severely hypokinetic and RV dysfunction. (2) Pneumonia: Qualifiers: Laterality: right Lung location: lower lobe of lung Pneumonia type: due to unspecified organism Qualified Code(s): J18.9 - Pneumonia, unspecified organism Code(s): J18.9 - Pneumonia, unspecified organism Status: Acute Assessment and Plan: On antibiotics as per hospitalist. (3) Acute kidney injury: Code(s): N17.9 - Acute kidney failure, unspecified Status: Acute Assessment and Plan: Monitor and received IVF. (4) CAD (coronary artery disease): Code(s): I25.10 - Atherosclerotic heart disease of [place] coronary artery without angina pectoris Status: Acute Assessment and Plan: Stable. His regular restaurant server is Dr. Baca at [facility] was planning on doing a nuclear stress test. Upon discharge have him f/u with his regular restaurant server in 1-2 weeks. (5) PAF (paroxysmal atrial fibrillation): Code(s): I48.0 - Paroxysmal atrial fibrillation Status: Acute Assessment and Plan: On Amiodarone and Xarelto and was maintaining normal rhythm. Increased Amiodarone 200 mg PO BID to restore sinus rhythm. He probably had atrial fib with RVR at 108 bpm with aberrancy vs slow NSVT on 01/08/22. Started Metoprolol Tartate 25 mg PO BID. No longer in atrial fib, decrease Amiodarone back to 200 mg daily. (6) NSTEMI (non-ST elevated myocardial infarction): Code(s): I21.4 - Non-ST elevation (NSTEMI) myocardial infarction Status: Acute Assessment and Plan: Cath with Dr. Thompson on 01/10/22 shows occluded in-stent restenosis of undersized stents in prox RCA and 2nd portion of RCA which were both balloon angioplastied with good results. No longer having any chest discomfort. Discussed with Dr. Thompson about antiplatelets and Xarelto. Stop Brilinta. Start Plavix 600 mg x1 loading then 75 mg daily, continue aspirin 81 mg daily, and resume Xarelto 15 mg this evening with a meal. After 1 month, stop aspirin. He will be followed by his regular restaurant server for this. Keep him one more night for monitoring of these changes, then anticipate d/c home tomorrow. (7) Systolic dysfunction: Code(s): I51.9 - Heart disease, unspecified Status: Acute Assessment and Plan: Stable. Subjective Date/time seen: 01/11/22 07:58 No more chest pains. Has some cough but no sob. Right groin access site without hematoma/bleeding/tenderness/bruit. Exam Const: General: cooperative, healthy appearing and comfortable Resp: Auscultation: clear to auscultation bilaterally, crackles on the right, no rales, no rhonchi and no wheezes Cardio: Jugular venous distension: no JVD Rate: regular rate Rhythm: regular rhythm Heart sounds: no murmurs Peripheral pulses: dorsalis pedis present GI: GI Palp: No abdominal tenderness and Yes Soft to palpation Neuro: General: oriented to person, oriented to place and oriented to time Extrem: Right lower extremity: no edema Left lower extremity: no edema Objective Data Vital Signs Vital Signs: Vital Signs - 24 hr 01/10/22 08:00 01/10/22 09:49 01/10/22 09:52 Temperature 98.2 F Pulse Rate 58 L 102 H 102 H Pulse Rate [Right Pedal (Dorsalis Pedis)] Respiratory Rate 20 20 20 Blood Pressure 129/73 Pulse Oximetry 96 95 Oxygen Delivery Nasal
--- NOTE | 2022-01-11 08:00 | ECG_ITS ---
Measurements Intervals [place] Rate: 66 P: [place]: 0 QRS: -6 QRSD: 106 T: 60 QT: 423 QTc: 446 Interpretive Statements SUPRAVENTRICULAR RHYTHM, PROBABLY SINUS RHYTHM WITH A SHORT [place] INTERVAL CANNOT RULE OUT OLD INFERIOR MYOCARDIAL INFARCTION COMPARED TO THE PRIOR TRACING, THERE IS NOW A NEW TINY Q-WAVE PRESENT IN LEAD AVF. Electronically Signed On 01-11-2022 9:30:58 CDT by Suyapa Arzola M.D.
[2022-01-11] MEDS: CLOPIDOGREL BISULFATE 300 MG TABLET 600 MG PO (09:23)
[2022-01-11] MEDS: FLUTICASONE PROPIONATE 0.05% NA SPR 16 GM BTL (*BKC) 2 SPRAY NASAL (09:23)
[2022-01-11] MEDS: buPROPion HCL 100 MG TABLET 200 MG PO (09:23)
[2022-01-11] MEDS: AMIODARONE HCL 200 MG TABLET PO (09:24)
[2022-01-11] MEDS: OPTI-GEN TAB 1 TABLET PO (09:24)
[2022-01-11] MEDS: GABAPENTIN 300 MG CAPSULE PO ×4 (09:24→21:07)
[2022-01-11] MEDS: VITAMIN E 400 UNIT CAPSULE PO (09:25)
[2022-01-11] MEDS: PRAVASTATIN SODIUM 20 MG TABLET 40 MG PO (09:25)
[2022-01-11] MEDS: LOSARTAN POTASSIUM 100 MG TABLET PO (09:26)
[2022-01-11] MEDS: METOPROLOL TARTRATE 25 MG TABLET PO ×2 (09:26→21:07)
[2022-01-11] MEDS: TAMSULOSIN HCL 0.4 MG CAPSULE PO (09:26)
[2022-01-11] MEDS: VITAMIN B COMPLEX CAPSULE 1 CAP PO (09:26)
[2022-01-11] MEDS: amLODIPine BESYLATE 5 MG TABLET PO (09:27)
[2022-01-11] MEDS: PANTOPRAZOLE 40 MG TABLET PO ×2 (09:27→21:07)
[2022-01-11] MEDS: ASPIRIN 81 MG ENTERIC TABLET PO (09:27)
[2022-01-11] MEDS: OMEGA 3 POLYUNSAT FATTY ACIDS 1 GM CAP PO (09:27)
--- NOTE | 2022-01-11 11:15 | PM.IMPN ---
Progress Note: A&P Assessment and Plan (1) Pneumonia: Qualifiers: Laterality: right Lung location: lower lobe of lung Pneumonia type: due to unspecified organism Qualified Code(s): J18.9 - Pneumonia, unspecified organism Code(s): J18.9 - Pneumonia, unspecified organism Status: Acute Assessment and Plan: CT scan noted, right-sided pneumonia continue antibiotics. Continue oxygen as needed (2) Acute kidney injury: Code(s): N17.9 - Acute kidney failure, unspecified Status: Acute Assessment and Plan: Monitor kidney function and electrolytes Creatinine slightly worse today. Will Consul Nephrology urine lytes ordered (3) Elevated troponin: Code(s): R77.8 - Other specified abnormalities of plasma proteins Status: Acute Assessment and Plan: Likely ID of the RCA her echo results. Cardiology is aware following. Catheterization showed 2 lesions in the RCA that were stented. Feeling better already. (4) Diabetes: Qualifiers: Diabetes mellitus type: type 2 Diabetes mellitus detention insulin use: without superintendent marine oil terminal use Diabetes mellitus complication status: with circulatory complication Diabetes mellitus complication detail: with other circulatory complications Qualified Code(s): E11.59 - Type 2 diabetes mellitus with other circulatory complications Code(s): E11.9 - Type 2 diabetes mellitus without complications Status: Acute Assessment and Plan: Monitor blood sugar Subjective Date/time seen: 01/11/22 11:15 Reports his shortness of breath is much improved. Still on 1liter of oxygen Exam Narrative: Constitutional: Patient is well-nourished in no acute distress. Patient is alert and oriented x3 HEENT: Moist mucous membranes. No scleral icterus. No lymphadenopathy. Neck: No carotid bruits noted no JVD noted Lungs: crackles noted to right lower lobe. No wheezing or rhonchi noted. Cardiovascular: Apical pulse is regular rate and rhythm. S1-S2 noted, no S3 or S4 noted. No gallops, murmurs, or rubs noted. Abdomen: Soft, round, and nontender. No palpable masses. Extremities: No edema. Nontender. Skin: No rashes or lesions. Warm and dry. Skin is intact. Neurological: No focal neurological deficits. Cranial nerves II-XII grossly intact. Psychiatric: Cooperative, appropriate mood, and affect Objective Data Vital Signs Vital Signs: Vital Signs - 24 hr 01/10/22 14:00 01/10/22 14:15 01/10/22 14:30 Temperature Pulse Rate 72 85 70 Pulse Rate [Right Pedal (Dorsalis Pedis)] Respiratory Rate 20 25 H 25 H Blood Pressure 110/78 95/69 L 105/61 Pulse Oximetry 93 94 95 Oxygen Delivery Room Air Nasal Cannula Nasal Cannula Oxygen Flow Rate 2 2 01/10/22 14:45 01/10/22 15:00 01/10/22 15:00 Temperature Pulse Rate 75 75 Pulse Rate [Right Pedal (Dorsalis Pedis)] 80 Respiratory Rate 25 H 26 H Blood Pressure 106/64 93/69 L Pulse Oximetry 94 96 Oxygen Delivery Nasal Cannula Nasal Cannula Oxygen Flow Rate 2 2 01/10/22 15:34 01/10/22 16:15 01/10/22 16:15 Temperature Pulse Rate 87 76 Pulse Rate [Right Pedal (Dorsalis Pedis)] 76 Respiratory Rate 24 H 26 H Blood Pressure 99/69 L 98/68 L Pulse Oximetry 95 93 Oxygen Delivery Nasal Cannula Nasal Cannula Oxygen Flow Rate 2 2 01/10/22 16:20 01/10/22 16:25 01/10/22 16:25 Temperature Pulse Rate 86 74 Pulse Rate [Right Pedal (Dorsalis Pedis)] 74 Respiratory Rate 24 H 20 Blood Pressure 110/64 106/72 Pulse Oximetry 95 94 Oxygen Delivery Nasal Cannula Nasal Cannula Oxygen Flow Rate 2 2 01/10/22 16:30 01/10/22 16:30 01/10/22 16:35 Temperature Pulse Rate 85 80 Pulse Rate [Right Pedal (Dorsalis Pedis)] 74 Respiratory Rate 23 H 19 Blood Pressure 96/74 L 104/73 Pulse Oximetry 96 95 Oxygen Delivery Nasal Cannula Nasal Cannula Oxygen Flow Rate 2 2 01/10/22 16:35 01/10/22 16:40 01/10/22 16:40 Temperature Pulse R
--- NOTE | 2022-01-11 12:25 | PM.CNNEP ---
Assessment and Plan Assessment and plan (1) Acute kidney injury: Code(s): N17.9 - Acute kidney failure, unspecified Status: Acute Assessment and Plan: baseline creatinine ~ 1.1 - 1.3mg/dl admitted with a creatinine of 2.0mg/dl however, 48 hours later (on 01/09/22), creatinine down to 1.1mg.dl then on 01/10/22, fabiola again to 1.9mg/d...and now 1.8mg/dl contrast could be playing a role (but received this yesterday and would not explain elevated creatinine on admission) rise in creatinine secondary to cardiac event/NSTEMI versus pneumonia(?) check renal ultrasound, UA, urine eosinophils, and urine electrolytes check CPK follow repeat labs and UOP (still making urine) (2) NSTEMI (non-ST elevated myocardial infarction): Code(s): I21.4 - Non-ST elevation (NSTEMI) myocardial infarction Status: Acute Assessment and Plan: as noted by rising troponins s/p cardiac catheterization yesterday - occluded in-stent restenosis of undersized stents in prox RCA and 2nd portion of RCA which were both balloon angioplastied with good results continue medical management (3) Pneumonia: Qualifiers: Laterality: right Lung location: lower lobe of lung Pneumonia type: due to unspecified organism Qualified Code(s): J18.9 - Pneumonia, unspecified organism Code(s): J18.9 - Pneumonia, unspecified organism Status: Acute Assessment and Plan: as noted by imaging to date IV antibiotics follow culture data (4) Essential hypertension: Code(s): I10 - Essential (primary) hypertension Status: Chronic Assessment and Plan: reasonable control component of relative hypotension leading to #1(?) follow trend of hemodynamics (5) Diabetes: Code(s): E11.9 - Type 2 diabetes mellitus without complications Status: Acute Assessment and Plan: follow accuchecks' glycemic control Will continue to follow. History of Present Illness Reason for Consult Consult date: 01/11/22 Reason for consult: acute renal failure Chief Complaint Chief complaint: RLL PNA, MARITZA, Elevated Trop History of Present Illness Narrative: The patient is a 76-year-old male with a past medical history as outlined below who presented to [facility] Emergency room with complaints of shortness of breath. The patient reports that over the last five days prior to his admission he has been having low-grade temperatures as documented by his thermometer in association with the a for mention shortness of breath and body aches. With regard to more specifics of these symptoms, he reports total body aches and pains in association with a productive cough of soheila color sputum. He has been using albuterol inhaler that he was given years ago with some mild improvement in his symptoms. He also reports chest pain with deep inspiration but no chest discomfort at rest. He denies lightheadedness, dizziness, syncope, nausea, vomiting, or diarrhea. Given the persistence of the symptoms over the last several days, he presented to the emergency room for further evaluation. Workup and evaluation in the emergency room demonstrated the patient to be hemodynamically stable with an oxygen saturation of 90% on room air. Chest x-ray demonstrated a significant right lower lobe pneumonia. Furthermore, his EKG was somewhat concerning for possible ischemia as well. Appropriate cultures were obtained and he was started on IV antibiotic therapy and Cardiology was consulted as well given the concern for possible coronary artery disease in the context of his acute pneumonia. He was subsequently admitted the hospital for further therapy. Renal consultation was requested due to his acute kidney injury/acute renal failure. I was actually consulted yesterday to see the patient but I was unable to do so as he was in the cardiac mobile lab technician. from review of his records, his baseline creatinine normally runs
[2022-01-11] MEDS: DOCUSATE SODIUM 100 MG CAPSULE PO (13:42)
[2022-01-11 17:23] LABS: Appearance Urine Clear (Clear); Bilirubin Urine Negative (Negative); Blood Urine Negative (Negative); Color Urine Yellow (Yellow); Glucose Urine UA Negative (Negative); Ketones Urine Negative (Negative); Leukocyte Esterase Ur Negative LEU/UL (Negative); Nitrate Urine Negative (Negative); Protein Urine Negative (Negative); Urobilinogen Urine 0.2 mg/dL (<2.0); pH Urine 5.5 (5.0-9.0)
[2022-01-11 17:24] LABS: Add Urine Microscopic? NO
[2022-01-11 17:30] LABS: Creatinine Urine 146.5 mg/dL; Total Protein Urine Random 11 mg/dL; Ur Ttl Prot Creatinine Ratio 0.08 mg/mg (0-0.20)
[2022-01-11 17:39] LABS: Glucose Point of Care 152 mg/dl (65-105)
[2022-01-11 17:41] LABS: Sodium Urine Random 35 meq/L
[2022-01-11] MEDS: guaiFENesin 12 HR 600 MG TABCR PO (18:19)
[2022-01-11 20:47] LABS: Glucose Point of Care 202 mg/dl (65-105)
[2022-01-11] MEDS: hydrOXYzine HCL 10 MG TABLET PO (21:07)
[2022-01-12] VITALS (12 sets, daily range): BP systolic 102–116; BP diastolic 62–70; PULSE 65–84; RESP 18–28; TEMP 36.2–37; O2SAT 90–96
[2022-01-12 05:46] LABS: Albumin Level 2.8 g/dL (3.5-5.1); Anion Gap 5 mmol/L (8-16); Blood Urea Nitrogen 42 mg/dL (9-20); Calcium 7.7 mg/dL (8.4-10.2); Carbon Dioxide 26 mmol/L (22-30); Chloride 105 mmol/L (98-107); Creatine Kinase 86 U/L (55-170); Estimated CRCL calculation 31 ml/min; Estimated Glomerular Filt Rate 37; Glucose 172 mg/dL (65-110); Phosphorus 3.5 mg/dL (2.5-4.5); Sodium 136 mmol/L (137-145)
[2022-01-12] MEDS: LEVOTHYROXINE SODIUM 50 MCG TABLET PO (06:46)
--- NOTE | 2022-01-12 08:06 | PM.PNCARD ---
Progress Note: A&P Assessment and Plan (1) Elevated troponin: Code(s): R77.8 - Other specified abnormalities of plasma proteins Status: Acute Assessment and Plan: Peaked at .07, trended down, then peaked at 12. Symptoms are not suggestive of ACS. Likely due to pneumonia with acute renal failure, however given EKG changes, troponin rising and new wall motion abnormalities on echo, he was taken to cardiac cath rn about 40 hours after last dose of Xarelto. Initial Echo shows EF 60-65%, mild biatrial enlargement, trace AI/PI, mild MR/TR. Then limited echo shows EF 40-45% with inferior wall severely hypokinetic and RV dysfunction. (2) Pneumonia: Qualifiers: Laterality: right Lung location: lower lobe of lung Pneumonia type: due to unspecified organism Qualified Code(s): J18.9 - Pneumonia, unspecified organism Code(s): J18.9 - Pneumonia, unspecified organism Status: Acute Assessment and Plan: On antibiotics as per hospitalist. (3) Acute kidney injury: Code(s): N17.9 - Acute kidney failure, unspecified Status: Acute Assessment and Plan: Monitor and received IVF. Nephrology following. (4) CAD (coronary artery disease): Code(s): I25.10 - Atherosclerotic heart disease of [place] coronary artery without angina pectoris Status: Acute Assessment and Plan: Stable. 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 Baca at [facility], [place]. 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 (5) PAF (paroxysmal atrial fibrillation): Code(s): I48.0 - Paroxysmal atrial fibrillation Status: Acute Assessment and Plan: On Amiodarone and Xarelto and was maintaining normal rhythm. Increased Amiodarone 200 mg PO BID to restore sinus rhythm. He probably had atrial fib with RVR at 108 bpm with aberrancy vs slow NSVT on 01/08/22. Started Metoprolol Tartate 25 mg PO BID. No longer in atrial fib, decreased Amiodarone back to 200 mg daily. (6) NSTEMI (non-ST elevated myocardial infarction): Code(s): I21.4 - Non-ST elevation (NSTEMI) myocardial infarction Status: Acute Assessment and Plan: Cath with Dr. Thompson on 01/10/22 shows occluded in-stent restenosis of undersized stents in prox RCA and 2nd portion of RCA which were both balloon angioplastied with good results. No longer having any chest discomfort. Discussed with Dr. Thompson about antiplatelets and Xarelto. Stop Brilinta. Start Plavix 600 mg x1 loading then 75 mg daily, continue aspirin 81 mg daily, and resume Xarelto 15 mg this evening with a meal. After 1 month, stop aspirin. 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 He did not get Xarelto last evening, will restart it this evening. Patient has a [employer] day trip to [place] on Thursday, and does not want to miss that opportunity. 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 (7) Systolic dysfunction: Code(s): I51.9 - Heart disease, unspecified Status: Acute Assessment and Plan: Stable. On Metoprolol, Losartan. (8) Essential hypertension: Code(s): I10 - Essential (primary) hypertension Status: Chronic Assessment and Plan: BP has been running low normal with SBP 90-110 mmHg. Stop Amlodipine and decrease Losartan 50 mg daily. Subjective Date/time seen: 01/12/22 08:06 Denies chest pain or sob. Has a cough. Exam Const: General: cooperative, healthy appearing and comfortable Resp: Auscultation: clear to auscultation bilaterally, crackles on the right, no rales, no rhonchi and no wheezes Cardio: Jugular venous distension: no JVD Rate: regular rate Rhythm: regular rhythm Heart sounds: no murmurs Peripheral pulses: dorsalis pedis present GI: GI Palp: No abdominal tenderness and Yes Soft to palpation Neuro: General: oriented to person, oriented to place and oriented to time Extrem: Right lower extremity: no edema
[2022-01-12 08:42] LABS: Glucose Point of Care 160 mg/dl (65-105)
[2022-01-12] MEDS: guaiFENesin 12 HR 600 MG TABCR PO (10:13)
[2022-01-12] MEDS: LOSARTAN POTASSIUM 50 MG TABLET PO (10:13)
[2022-01-12] MEDS: FLUTICASONE PROPIONATE 0.05% NA SPR 16 GM BTL (*BKC) 2 SPRAY NASAL (10:13)
[2022-01-12] MEDS: PRAVASTATIN SODIUM 20 MG TABLET 40 MG PO (10:14)
[2022-01-12] MEDS: ASPIRIN 81 MG ENTERIC TABLET PO (10:14)
[2022-01-12] MEDS: VITAMIN B COMPLEX CAPSULE 1 CAP PO (10:14)
[2022-01-12] MEDS: METOPROLOL TARTRATE 25 MG TABLET PO (10:15)
[2022-01-12] MEDS: buPROPion HCL 100 MG TABLET 200 MG PO (10:15)
[2022-01-12] MEDS: TAMSULOSIN HCL 0.4 MG CAPSULE PO (10:15)
[2022-01-12] MEDS: GABAPENTIN 300 MG CAPSULE PO (10:15)
[2022-01-12] MEDS: CLOPIDOGREL BISULFATE 75 MG TABLET PO (10:15)
[2022-01-12] MEDS: OMEGA 3 POLYUNSAT FATTY ACIDS 1 GM CAP PO (10:16)
[2022-01-12] MEDS: VITAMIN E 400 UNIT CAPSULE PO (10:16)
[2022-01-12] MEDS: OPTI-GEN TAB 1 TABLET PO (10:16)
[2022-01-12] MEDS: AMIODARONE HCL 200 MG TABLET PO (10:16)
[2022-01-12] MEDS: PANTOPRAZOLE 40 MG TABLET PO (10:17)
--- NOTE | 2022-01-12 12:01 | P.PNNP_ITS ---
Progress Note: A&P Assessment and Plan (1) Acute kidney injury: Code(s): N17.9 - Acute kidney failure, unspecified Status: Acute Assessment and Plan: * baseline creatinine ~ 1.1 - 1.3mg/dl * admitted with a creatinine of 2.0mg/dl * however, 48 hours later (on 01/09/22), creatinine down to 1.1mg.dl * then on 01/10/22, fabiola again to 1.9mg/d...and remains at 1.8mg/dl * contrast could be playing a role (but received this yesterday and would not explain elevated creatinine on admission) * rise in creatinine secondary to cardiac event/NSTEMI versus pneumonia(?) * evaluation noted: * renal ultrasound normal * urine electrolytes look pre-renal * CPK okay * follow repeat labs and UOP (still making urine) (2) NSTEMI (non-ST elevated myocardial infarction): Code(s): I21.4 - Non-ST elevation (NSTEMI) myocardial infarction Status: Acute Assessment and Plan: * as noted by rising troponins * s/p cardiac catheterization yesterday - occluded in-stent restenosis of undersized stents in prox RCA and 2nd portion of RCA which were both balloon angioplastied with good results * continue medical management (3) Pneumonia: Qualifiers: Laterality: right Lung location: lower lobe of lung Pneumonia type: due to unspecified organism Qualified Code(s): J18.9 - Pneumonia, unspecified organism Code(s): J18.9 - Pneumonia, unspecified organism Status: Acute Assessment and Plan: * as noted by imaging to date * IV antibiotics * follow culture data (4) Essential hypertension: Code(s): I10 - Essential (primary) hypertension Status: Chronic Assessment and Plan: * reasonable control * component of relative hypotension leading to #1(?) * follow trend of hemodynamics (5) Diabetes: Code(s): E11.9 - Type 2 diabetes mellitus without complications Status: Acute Assessment and Plan: * follow accuchecks * glycemic control Will continue to follow. Subjective Date/time seen: 01/12/22 12:01 Appears to be doing quite well at the time of my visit - states he feels pretty good ; no further chest pain and reports no other concerns/complaints currently; no apparent distress; no reported events overnight or earlier this morning. Exam Narrative: General: WD/WN male in NAD Heart: normal S1 and S2; no rub Lungs: clear to auscultation Abdomen: soft, nontender, nondistended, positive bowel sounds Extremities: no cyanosis or clubbing; no edema Skin: warm and dry Objective Data Vital Signs Vital Signs: Vital Signs Temp Pulse Resp BP Pulse Ox O2 Del Method 01/12/22 12:00 Room Air 01/12/22 12:00 70 01/12/22 12:00 36.8 C 74 28 H 108/64 96 01/12/22 11:27 82 93 Room Air 01/12/22 11:25 84 92 Room Air 01/12/22 11:20 83 91 Room Air 01/12/22 11:15 75 92 Room Air 01/12/22 10:00 71 01/12/22 08:00 69 01/12/22 08:00 65 24 H 90 Room Air 01/12/22 10:16 65 01/12/22 10:15 65 01/12/22 08:00 37.0 C 68 24 H 102/70 90 01/12/22 04:00 69 01/12/22 04:00 36.2 C L 68 18 116/62 90 01/12/22 03:48 68 93 Room Air 01/12/22 00:00 66 01/11/22 23:48 93 Room Air 01/11/22 23:38 36.1 C L
--- NOTE | 2022-01-12 12:01 | PM.PNNEP ---
Progress Note: A&P Assessment and Plan (1) Acute kidney injury: Code(s): N17.9 - Acute kidney failure, unspecified Status: Acute Assessment and Plan: baseline creatinine ~ 1.1 - 1.3mg/dl admitted with a creatinine of 2.0mg/dl however, 48 hours later (on 01/09/22), creatinine down to 1.1mg.dl then on 01/10/22, fabiola again to 1.9mg/d...and remains at 1.8mg/dl contrast could be playing a role (but received this yesterday and would not explain elevated creatinine on admission) rise in creatinine secondary to cardiac event/NSTEMI versus pneumonia(?) evaluation noted: renal ultrasound normal urine electrolytes look pre-renal CPK okay follow repeat labs and UOP (still making urine) (2) NSTEMI (non-ST elevated myocardial infarction): Code(s): I21.4 - Non-ST elevation (NSTEMI) myocardial infarction Status: Acute Assessment and Plan: as noted by rising troponins s/p cardiac catheterization yesterday - occluded in-stent restenosis of undersized stents in prox RCA and 2nd portion of RCA which were both balloon angioplastied with good results continue medical management (3) Pneumonia: Qualifiers: Laterality: right Lung location: lower lobe of lung Pneumonia type: due to unspecified organism Qualified Code(s): J18.9 - Pneumonia, unspecified organism Code(s): J18.9 - Pneumonia, unspecified organism Status: Acute Assessment and Plan: as noted by imaging to date IV antibiotics follow culture data (4) Essential hypertension: Code(s): I10 - Essential (primary) hypertension Status: Chronic Assessment and Plan: reasonable control component of relative hypotension leading to #1(?) follow trend of hemodynamics (5) Diabetes: Code(s): E11.9 - Type 2 diabetes mellitus without complications Status: Acute Assessment and Plan: follow accuchecks glycemic control Will continue to follow. Subjective Date/time seen: 01/12/22 12:01 Appears to be doing quite well at the time of my visit - states he feels pretty good ; no further chest pain and reports no other concerns/complaints currently; no apparent distress; no reported events overnight or earlier this morning. Exam Narrative: General: WD/WN male in NAD Heart: normal S1 and S2; no rub Lungs: clear to auscultation Abdomen: soft, nontender, nondistended, positive bowel sounds Extremities: no cyanosis or clubbing; no edema Skin: warm and dry Objective Data Vital Signs Vital Signs: Vital Signs Temp Pulse Resp BP Pulse Ox O2 Del Method 01/12/22 12:00 Room Air 01/12/22 12:00 70 01/12/22 12:00 36.8 C 74 28 H 108/64 96 01/12/22 11:27 82 93 Room Air 01/12/22 11:25 84 92 Room Air 01/12/22 11:20 83 91 Room Air 01/12/22 11:15 75 92 Room Air 01/12/22 10:00 71 01/12/22 08:00 69 01/12/22 08:00 65 24 H 90 Room Air 01/12/22 10:16 65 01/12/22 10:15 65 01/12/22 08:00 37.0 C 68 24 H 102/70 90 01/12/22 04:00 69 01/12/22 04:00 36.2 C L 68 18 116/62 90 01/12/22 03:48 68 93 Room Air 01/12/22 00:00 66 01/11/22 23:48 93 Room Air 01/11/22 23:38 36.1 C L 67 18 105/58 L 90 01/11/22 20:00 72 01/11/22 20:00 93 Room Air 01/11/22 21:07 75 01/11/22 20:00 36.1 C L 72 18 99/53 L 92 01/11/22 16:00 93 Room Air 01/11/22 18:00 71 01/11/22 16:00 66 01/11/22 16:00 36.9 C 75 22 H 102/57 L 93 Intake/Output Intake/Output: Intake & Output 01/09/22 01/10/22 01/11/22 01/12/22 23:59 23:59 23:59 23:59 Intake Total 1881 370 0237 1140 Output Total 1925 1300 1050 200 Balance -605 -830 2040 940 Meds/Results Medications: Active Medications Generic Name Dose Route Start Last Admin Trade Name Freq PRN Reason Stop Dose Admin Acetaminophen 650 mg 01/07/22 20:40 01/08/22 14:5
[2022-01-12 12:09] LABS: Glucose Point of Care 223 mg/dl (65-105)
--- NOTE | 2022-01-12 12:12 | PM.DS ---
DS: Admitting Diagnosis Discharge Date January 12, 2022 Admitting Diagnosis Pneumonia, non-STEMI DS: Discharge Diagnosis Discharge Diagnosis (1) Pneumonia: Qualifiers: Laterality: right Lung location: lower lobe of lung Pneumonia type: due to unspecified organism Qualified Code(s): J18.9 - Pneumonia, unspecified organism Code(s): J18.9 - Pneumonia, unspecified organism Status: Acute Assessment and Plan: Antibiotics on discharge, home O2 eval we performed no oxygen as needed (2) Acute kidney injury: Code(s): N17.9 - Acute kidney failure, unspecified Status: Acute Assessment and Plan: Monitor as outpatient (3) Elevated troponin: Code(s): R77.8 - Other specified abnormalities of plasma proteins Status: Acute Assessment and Plan: Likely [place] of the RCA her echo results. Catheterization showed 2 lesions in the RCA that were stented. Aspirin Plavix and Xarelto on discharge. 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 insulin use: without halfway use Diabetes mellitus complication status: with circulatory complication Diabetes mellitus complication detail: with other circulatory complications Qualified Code(s): E11.59 - Type 2 diabetes mellitus with other circulatory complications Code(s): E11.9 - Type 2 diabetes mellitus without complications Status: Acute Assessment and Plan: Continue home meds DS: Summary Hospital Course Hospital Course: admitted for nstemi and pna abx on dc rca stent x 2 asa plavix xarelto on dc - fu with his horticulture/floriculture teacher adjust cardiac medications for hypertension and PAF Time Spent with Patient Time attestation: Total time spent providing and/or coordinating discharge services: Exam Narrative: Constitutional: Patient is well-nourished in no acute distress. Patient is alert and oriented x3 HEENT: Moist mucous membranes. No scleral icterus. No lymphadenopathy. Neck: No carotid bruits noted no JVD noted Lungs: crackles noted to right lower lobe. No wheezing or rhonchi noted. Cardiovascular: Apical pulse is regular rate and rhythm. S1-S2 noted, no S3 or S4 noted. No gallops, murmurs, or rubs noted. Abdomen: Soft, round, and nontender. No palpable masses. Extremities: No edema. Nontender. Skin: No rashes or lesions. Warm and dry. Skin is intact. Neurological: No focal neurological deficits. Cranial nerves II-XII grossly intact. Psychiatric: Cooperative, appropriate mood, and affect DS: Data Data Completed and Pending Labs on day of discharge: Labs from last 24 hours 01/12/22 01/12/22 01/12/22 11:38 08:00 05:25 Sodium Potassium Chloride Carbon Dioxide Anion Gap BUN Creatinine Estim Creat Clear Calc Estimated GFR Glucose POC Capillary Glucose 223 H 160 H Calcium Phosphorus Total Creatine Kinase Total Protein Pending Albumin Pending Ryygj-9-Ohycxztdc Pending Ibzsl-4-Mxpbxucsa Pending Negq-6-Yspfjgdk Pending Gzad-3-Mmwyptuq Pending Gamma Globulins Pending Abnorm Protein Band 1 Pending Abnorm Protein Band 3 Pending PEP Interpretation Pending Urine Color Urine Appearance Urine pH Ur Specific [place] Urine Protein Urine Glucose (UA) Urine Ketones Ur Blood (Man) Urine Nitrate Urine Bilirubin Urine Urobilinogen Leukocyte Esterase Rfl Ur Random Creatinine U Random Total Protein Ur Random Sodium Ur Random Chloride U Random Chloride/Creat Urine Creatinine Protein/Creatinin Ratio Protein/Creat Ratio 2 Urine Albumin U Bnwxk-2-Qapmrtuo U Xisvk-2-Qcpgfaqj U Beta Globulin U Gamma Globulin U Abnormal Prot Band 1 U Abnormal Prot Band 2 U Abnormal Prot Band 3 Urine PEP Interpret 01/12/22 01/11/22 01/11/22 05:25 20:42 17:18 So
[2022-01-15 20:12] LABS: Total Protein/Creatinine Ratio 123 mg/g creat (22-128)
[2022-01-15 22:36] LABS: Albumin 2.5 g/dL (3.8-4.8); Alpha 1 Globulin 0.6 g/dL (0.2-0.3); Alpha 2 Globulin 0.9 g/dL (0.5-0.9); Beta 1 Globulin 0.4 g/dL (0.4-0.6); Gamma Globulin 0.7 g/dL (0.8-1.7); Protein, Total 5.4 g/dL (6.1-8.1)
[2022-01-17 10:33] LABS: Chloride Rand Ur <20 mmol/L (32-290); Creatinine Random Urine 132 mg/dL (20-320)
== END 2022-01-12 15:20 | disposition home or self-care (01) | DRG 250 ==
LOC: ANHED 12:27 → ANHIMU 12:55 → ANH3MED 01-09 13:32 → ANHIMU 01-12 12:11 → ANH3MED 01-14 10:34 → ANHIMU 01-14 10:34
PROVIDERS: Internal Medicine Cardiovascular Disease; Internal Medicine Nephrology; Physician Assistant; Admitting Provider Family Medicine; Emergency Provider Emergency Medicine; PCP Internal Medicine; Visit Provider Chiropractor
PROC: 4A023N7 Measurement of Cardiac Sampling and Pressure, Left Heart, Percutaneous Approach (ICD-10-PCS; CPT 93459; principal; 2022-01-10 13:00)
PROC: 02C03ZZ Extirpation of Matter from Coronary Artery, One Artery, Percutaneous Approach (ICD-10-PCS; CPT 92973; 2022-01-10 13:00)
PROC: 02C03ZZ Extirpation of Matter from Coronary Artery, One Artery, Percutaneous Approach (ICD-10-PCS; 2022-01-10 13:00)
PROC: 02703ZZ Dilation of Coronary Artery, One Artery, Percutaneous Approach (ICD-10-PCS; CPT 92920; 2022-01-10 13:00)
DX: T82.855A Stenosis of coronary artery stent, initial encounter (principal); J18.9 Pneumonia, unspecified organism; I21.4 Non-ST elevation (NSTEMI) myocardial infarction; E87.1 Hypo-osmolality and hyponatremia; N17.9 Acute kidney failure, unspecified; E87.2 Acidosis; Y71.1 Therapeutic (nonsurgical) and rehabilitative cardiovascular devices associated with adverse incidents; Y92.9 Unspecified place or not applicable; Z20.822 Contact with and (suspected) exposure to COVID-19; Z79.82 Long term (current) use of aspirin; Z79.01 Long term (current) use of anticoagulants; I48.0 Paroxysmal atrial fibrillation; N40.0 Benign prostatic hyperplasia without lower urinary tract symptoms; I25.10 Atherosclerotic heart disease of native coronary artery without angina pectoris; Z79.84 Long term (current) use of oral hypoglycemic drugs; E78.5 Hyperlipidemia, unspecified; I10 Essential (primary) hypertension; K21.9 Gastro-esophageal reflux disease without esophagitis; Z95.1 Presence of aortocoronary bypass graft; Z95.5 Presence of coronary angioplasty implant and graft; E03.9 Hypothyroidism, unspecified; E11.59 Type 2 diabetes mellitus with other circulatory complications; E29.0 Testicular hyperfunction
CPT/HCPCS: 36415; 71046; 71250; 76705; 76775; 80048; 80053; 80069; 81003; 81050; 82436; 82550; 82570; 82948; 83605; 83690; 83735; 84100; 84155; 84156; 84165; 84166; 84300; 84484; 85025; 85027; 85610; 85730; 87040; 87502; 92920; 92973; 92978; 93005; 93306; 93308; 93459; 94618; 94640; 96361; 96365; 96366; 96375; 99285; A9270; C1725; C1753; C1757; C1769; C1887; C1894; C9803; G0378; J0456; J0461; J0583; J0696; J1644; J1815; J1940; J2001; J2250; J3010; J7030; J7040; U0003; U0005

== ENCOUNTER 2022-01-23 08:55 | Outpatient (CLI) | payer OTHER, SELFPAY ==
[2022-01-23 09:11] LABS: Basophils Absolute Auto 0.1 K/mm3 (0.0-0.1); Basophils Percent Auto 1.2 % (0.2-1.2); Eosinophils Absolute Auto 0.1 K/mm3 (0-0.3); Eosinophils Percent Auto 2.3 % (0-4.4); Hematocrit 39.8 % (42.0-52.0); Hemoglobin 12.5 g/dL (14.0-18.0); Immature Granulocyte Absolute 0.03 K/mm3 (0.00-0.031); Immature Granulocyte Percent A 0.5 % (0-0.5); Lymphocytes Absolute Auto 0.76 K/mm3 (0.9-3.2); Lymphocytes Percent Auto 13.5 % (18.3-44.2); Mean Corpuscular HGB Conc 31.4 g/dl (32-36); Mean Corpuscular Volume 101.8 fl (80-100); Mean Platelet Volume 9.2 fl (7.4-10.4); Monocytes Absolute Auto 0.5 K/mm3 (0.1-0.6); Monocytes Percent Auto 9.1 % (2.6-8.5); Neutrophils Absolute Auto 4.1 K/mm3 (1.3-6.7); Neutrophils Percent Auto 73.4 % (45.5-73.1); Platelet Count Result 300 k/mm3 (150-375); Red Blood Count 3.91 M/mm3 (4.6-6.20); Red Cell Distribution Width 13.7 % (11.5-14.5); White Blood Count 5.6 K/mm3 (4.5-10.0)
[2022-01-23 09:29] LABS: Alanine Aminotransferase 29 U/L (6-50); Albumin Level 3.8 g/dL (3.5-5.1); Alkaline Phosphatase 111 U/L (38-126); Anion Gap 4 mmol/L (8-16); Aspartate Amino Transferase 23 U/L (17-59); Bilirubin,Total 0.7 mg/dL (0.2-1.3); Blood Urea Nitrogen 22 mg/dL (9-20); Calcium 8.7 mg/dL (8.4-10.2); Carbon Dioxide 27 mmol/L (22-30); Chloride 107 mmol/L (98-107); Estimated Glomerular Filt Rate 54; Glucose 159 mg/dL (65-110); Potassium 4.4 mmol/L (3.4-5.0); Sodium 138 mmol/L (137-145)
== END 2022-01-23 08:56 | disposition home or self-care (01) ==
LOC: ANHLAB 08:57
PROVIDERS: PCP Internal Medicine; Visit Provider Internal Medicine
DX: I25.10 Atherosclerotic heart disease of native coronary artery without angina pectoris (principal); N17.9 Acute kidney failure, unspecified; I48.91 Unspecified atrial fibrillation
CPT/HCPCS: 36415; 80053; 85025

== ENCOUNTER 2022-02-03 09:59 | Outpatient (CLI) | payer OTHER, SELFPAY ==
--- NOTE | ~2022-02-03 | XR_ITS ---
XR chest 2V DATE: 02/03/2022 10:19 INDICATION: Pleurisy. Recent pneumonia. Persistent cough. TECHNIQUE: PA and lateral views COMPARISON: 01/08/2022 CTA chest 01/07/2022 PA and lateral chest FINDINGS: Status post sternotomy. Coronary artery calcification is evident. Heart size is mildly enla rged. There is aortic unfolding. No hilar or mediastinal enlargement is evident. There is mild patchy right upper lobe infiltrate. There is considerable interval improvement of right lower lobe consolidation since 01/07/2022. The left lung is essentially clear. Minimal right pleural effusion. No pneumothorax. IMPRESSION: Right upper and lower lobe infiltrates, right lower lobe infiltrate substantially improve d since 01/07/2022 Reviewed, dictated and finalized at location B. IMPRESSION: Right upper and lower lobe infiltrates, right lower lobe infiltrate substantially improved since 01/07/2022
== END 2022-02-03 10:00 | disposition home or self-care (01) ==
PROVIDERS: PCP Internal Medicine; Visit Provider Internal Medicine
DX: R09.1 Pleurisy (principal); R91.8 Other nonspecific abnormal finding of lung field
CPT/HCPCS: 71046

== ENCOUNTER 2022-05-20 07:04 | Outpatient (CLI) | payer OTHER, SELFPAY ==
[2022-05-20 07:30] LABS: Hemoglobin A1C 6.4 % (<5.7)
[2022-05-20 07:31] LABS: Alanine Aminotransferase 22 U/L (6-50); Albumin Level 4.5 g/dL (3.5-5.1); Alkaline Phosphatase 50 U/L (38-126); Anion Gap 13 mmol/L (8-16); Aspartate Amino Transferase 28 U/L (17-59); Bilirubin,Total 0.9 mg/dL (0.2-1.3); Blood Urea Nitrogen 30 mg/dL (9-20); Calcium 9.1 mg/dL (8.4-10.2); Carbon Dioxide 27 mmol/L (22-30); Chloride 101 mmol/L (98-107); Cholesterol 143 mg/dL (0-200); Estimated Glomerular Filt Rate 53; Glucose 122 mg/dL (65-110); HDL Direct 40 mg/dL; Potassium 4.2 mmol/L (3.4-5.0); Sodium 141 mmol/L (137-145); Triglycerides 96 mg/dL (<150)
[2022-05-20 07:42] LABS: LDL Cholesterol Direct 79 mg/dL
[2022-05-20 08:22] LABS: Vitamin D 25 Hydroxy 71.3 ng/mL
[2022-05-23 23:59] LABS: Testosterone Total 1835 ng/dL (250-1100)
== END 2022-05-20 07:05 | disposition home or self-care (01) ==
PROVIDERS: PCP Internal Medicine; Visit Provider Internal Medicine
DX: E11.9 Type 2 diabetes mellitus without complications (principal); I10 Essential (primary) hypertension; I48.91 Unspecified atrial fibrillation; E29.1 Testicular hypofunction; E03.9 Hypothyroidism, unspecified; E55.9 Vitamin D deficiency, unspecified
CPT/HCPCS: 36415; 80053; 80061; 82306; 83036; 84403; 84443

== ENCOUNTER 2022-10-08 08:22 | Emergency (ER) | payer OTHER, SELFPAY ==
[2022-10-08] VITALS (14 sets, daily range): BP systolic 130–153; BP diastolic 53–72; PULSE 54–59; RESP 16–18; TEMP 36.4; O2SAT 92–98
--- NOTE | ~2022-10-08 | XR_ITS ---
EXAMINATION: XR chest 2V DATE: 10/08/2022 09:06 INDICATION: Cough and shortness of breath. TECHNIQUE: Frontal and lateral views of the chest were obtained. COMPARISON: Chest 2 views 02/03/2022, chest CT 01/08/2022 FINDINGS: A calcified right lung nodule is consistent with old granulomatous disease. No pneumonia, p leural effusion, or pneumothorax. The heart size is normal. Median sternotomy wires and mediastinal s urgical clips are seen, likely from prior coronary artery bypass grafting. IMPRESSION: 1. No acute cardiopulmonary disease. Reviewed, dictated and finalized at location A. ER MAKER
[2022-10-08 09:29] LABS: Influenza A QL RT-PCR Negative (Negative); Influenza B QL RT-PCR Negative (Negative); RSV RNA, RT-PCR Negative (Negative); SARS-CoV-2 RNA PCR Negative
--- NOTE | 2022-10-08 10:38 | ED.GENADULT ---
HPI - General Adult General Chief complaint: Upper Respiratory Infection Stated complaint: COUGH,COLD S/SX Time Seen by Provider: 10/08/22 08:36 History of Present Illness HPI narrative: 77-year-old male presenting to the emergency department for evaluation of cough and congestion with associated cold symptoms since Thursday. Patient states that he began having symptoms on Thursday and has had persistent cough since then. Patient does use albuterol inhaler but has not had significant improvement with this. Patient states he has chest pain with coughing but no chest pain at rest. Patient denies any associated shortness of breath. Patient attempted to get follow-up with his primary care physician and with [facility] but was unable to get anything for 14 October. Related Data Home Medications Medication Instructions Recorded Confirmed hydroxyzine HCl 10 mg tablet 10 mg PO HS 08/15/19 09/23/22 metformin 1,000 mg tablet 1,000 mg PO DAILY 08/15/19 09/23/22 rlerfcegbqez-cuflhtpc-atiyqo tablet 1 tablet PO DAILY 08/15/19 09/23/22 omega-3 fatty acids 1,000 mg 1,000 mg PO DAILY 08/15/19 09/23/22 capsule (Fish Oil Concentrate) omeprazole 40 mg capsule,delayed 40 mg PO DAILY 08/15/19 09/23/22 release rivaroxaban 20 mg tablet (Xarelto) 20 mg PO 1700 08/15/19 09/23/22 tamsulosin 0.4 mg capsule 0.4 mg PO DAILY 08/15/19 09/23/22 tramadol 50 mg tablet 50 mg PO Q6H PRN Pain 08/15/19 09/23/22 gabapentin 300 mg capsule 300 mg PO QID 08/14/20 09/23/22 bupropion HCl 100 mg tablet 200 mg PO DAILY 02/13/21 09/23/22 docusate sodium 100 mg capsule 100 mg PO DAILY 02/13/21 09/23/22 vitamin B complex (B 1 tablet PO DAILY 02/13/21 09/23/22 Complex-Vitamin B12 tablet) acetaminophen 500 mg capsule 500 mg PO Q12H PRN Muscle Pain 11/04/21 09/23/22 Allergies Allergy/AdvReac Type Severity Reaction Status Date / Time No Known Allergies Allergy Verified 09/23/22 14:46 Review of Systems Review of Systems: CONSTITUTIONAL: Denies fever, chills, or sweats. EYES: Denies visual changes, redness, or discharge. ENT: Denies rhinorrhea, congestion, sore throat, or otalgia. CARDIOVASCULAR: Denies chest pain, palpitations, or edema. RESPIRATORY: See HPI GASTROINTESTINAL: Denies abdominal pain, nausea, vomiting, or diarrhea. GENITOURINARY: Denies dysuria or hematuria. SKIN: Denies rash or itching. MUSCULOSKELETAL: Denies back pain, joint pain, or myalgia. NEUROLOGIC: Denies headache, numbness, or weakness. [facility] Past Medical History Medical History Afib BPH (benign prostatic hyperplasia) CAD (coronary artery disease) Diabetes Dyslipidemia Essential hypertension GERD (gastroesophageal reflux disease) Testicular hyperfunction Surgical History Surgical History History of coronary artery bypass graft History of coronary artery stent placement Family History Family History Mother Heart attack Father Heart attack Social History Social History Smoking status: Never smoker Second hand tobacco smoke exposure: No Alcohol intake: never Substance use: never Substance use type: does not use Lack of Transportation: No Lack of Food: Never True Current Housing: I Have Housing Concerned About Future Housing: No Difficulty Paying Gas/Electric Bills: No Difficulty Paying for Meds: No Currently Unemployed: No Education: High School Diploma/GED Difficulty w/ Childcare or Family Care: No Gender identity (if verbalized by the patient): Male Spiritual care concerns: No Exam Narrative: APPEARANCE: Well appearing, no pain, no distress, well-nourished. HEAD: normocephalic, atraumatic. EYES: PERRLA/EOMI, conjunctivae clear. NOSE: Normal no drainage EARS:TMS clear with good light reflex. THROAT: Pharynx clear, no exudate. NECK: Supple.
[2022-10-08] MEDS: BENZONATATE 100 MG CAPSULE PO (11:15)
[2022-10-08] MEDS: AZITHROMYCIN 250 MG TABLET 500 MG PO (11:15)
== END 2022-10-08 11:40 | disposition home or self-care (01) ==
PROVIDERS: Emergency Provider Emergency Medicine; PCP Internal Medicine
DX: R05.9 Cough, unspecified (principal); I48.91 Unspecified atrial fibrillation; I25.10 Atherosclerotic heart disease of native coronary artery without angina pectoris; E11.9 Type 2 diabetes mellitus without complications; N40.0 Benign prostatic hyperplasia without lower urinary tract symptoms; E78.5 Hyperlipidemia, unspecified; I10 Essential (primary) hypertension; K21.9 Gastro-esophageal reflux disease without esophagitis; Z95.1 Presence of aortocoronary bypass graft; Z95.5 Presence of coronary angioplasty implant and graft; Z79.84 Long term (current) use of oral hypoglycemic drugs; Z79.01 Long term (current) use of anticoagulants; Z20.822 Contact with and (suspected) exposure to COVID-19
CPT/HCPCS: 71046; 87637; 99283; A9270

== ENCOUNTER 2022-12-05 07:41 | Outpatient (CLI) | payer OTHER, SELFPAY ==
[2022-12-05 08:42] LABS: Alanine Aminotransferase 26 U/L (6-50); Albumin Level 4.5 g/dL (3.5-5.1); Alkaline Phosphatase 50 U/L (38-126); Anion Gap 7 mmol/L (8-16); Aspartate Amino Transferase 28 U/L (17-59); Bilirubin,Total 0.9 mg/dL (0.2-1.3); Blood Urea Nitrogen 26 mg/dL (9-20); Calcium 8.9 mg/dL (8.4-10.2); Carbon Dioxide 27 mmol/L (22-30); Chloride 104 mmol/L (98-107); Cholesterol 154 mg/dL (0-200); Estimated Glomerular Filt Rate > 60; Glucose 135 mg/dL (65-110); HDL Direct 37 mg/dL; Potassium 4.3 mmol/L (3.4-5.0); Sodium 138 mmol/L (137-145); Triglycerides 168 mg/dL (<150)
[2022-12-05 08:51] LABS: LDL Cholesterol Direct 83 mg/dL
[2022-12-05 10:08] LABS: Hemoglobin A1C 6.3 % (<5.7)
== END 2022-12-05 07:42 | disposition home or self-care (01) ==
LOC: ANHLAB 07:43
PROVIDERS: PCP Nurse Practitioner; Visit Provider Nurse Practitioner
DX: I25.10 Atherosclerotic heart disease of native coronary artery without angina pectoris (principal); E78.5 Hyperlipidemia, unspecified; E11.9 Type 2 diabetes mellitus without complications; E03.9 Hypothyroidism, unspecified
CPT/HCPCS: 36415; 80053; 80061; 83036; 84443

== ENCOUNTER 2023-06-04 10:19 | Outpatient (CLI) | payer OTHER, SELFPAY ==
--- NOTE | ~2023-06-04 | XR_ITS ---
XR chest 2V 06/04/2023 10:38 Indication: Cough for 2 weeks Procedure: 2 view chest Comparison: Comparison to multiple prior studies sequentially, with oldest reviewed study dated 02/19. Findings: Status post median sternotomy. Heart size normal. No focal air space disease, pulmonary fl[place] ma, pleural effusion or suspected pneumothorax. Impression: 1: No acute cardiopulmonary disease. Reviewed, dictated and finalized at location L. Impression: 1: No acute cardiopulmonary disease.
== END 2023-06-04 10:20 | disposition home or self-care (01) ==
LOC: ANHIMG 10:23
PROVIDERS: PCP Nurse Practitioner; Visit Provider Nurse Practitioner
DX: R05.9 Cough, unspecified (principal)
CPT/HCPCS: 71046

== ENCOUNTER 2024-08-23 17:32 | Emergency (ER) | payer OTHER, SELFPAY ==
--- NOTE | ~2024-08-23 | XR_ITS ---
CHEST RADIOGRAPH, PA AND LATERAL CLINICAL HISTORY: cough, covid . COMPARISON: 06/04/2023 TECHNIQUE: PA and lateral views of the chest. FINDINGS Sternal wires and mediastinal clips are identified, the wires are midline and unchanged in configurat ion, although not intact. Large hiatal hernia, unchanged from 2021. The remainder of the cardiomediastinal silhouette is otherwise unremarkable. The lungs are clear. IMPRESSION: No focal infiltrate or effusion. Reviewed, dictated and finalized at location A. ES OPERATOR
[2024-08-23 17:36] VITALS: BP 164/75; PULSE 70; RESP 18; TEMP 36.7; O2SAT 100
[2024-08-23 18:29] LABS: Influenza A QL RT-PCR Negative (Negative); Influenza B QL RT-PCR Negative (Negative); RSV RNA, RT-PCR Negative (Negative); SARS-CoV-2 RNA PCR Positive (Negative)
--- NOTE | 2024-08-23 19:24 | ED.URI ---
HPI - URI/Sore Throat General Chief Complaint: Upper Respiratory Infection Stated Complaint: cough Time Seen by Provider: 08/23/24 18:57 Source: patient Mode of arrival: ambulatory Limitations: no limitations History of Present Illness HPI Narrative: Patient is an 79-year-old male who presents the ED with report of a cough. Patient reports having a persistent dry cough over the last 9 days. Denies production of sputum. Does have some congestion. Denies fevers, chest pain, shortness breath, dyspnea with exertion, pleuritic pain, pain or swelling in legs. Denies known sick contacts. Denies nausea, vomiting. Patient has hx of AFIB, on xarelto. Compliant with this. Related Data Home Medications ?Medication ?Instructions ?Recorded ?Confirmed ?Last Taken ?Type metformin 1,000 mg tablet 1,000 mg PO DAILY 08/15/19 07/06/24 Unknown History glfhqooajpma-nodjkliu-sogoqk tablet 1 tablet PO DAILY 08/15/19 07/06/24 Unknown History omega-3 fatty acids 1,000 mg 1,000 mg PO DAILY 08/15/19 07/06/24 Unknown History capsule (Fish Oil Concentrate) rivaroxaban 20 mg tablet (Xarelto) 20 mg PO 1700 08/15/19 07/06/24 Unknown History tamsulosin 0.4 mg capsule 0.4 mg PO DAILY 08/15/19 07/06/24 Unknown History tramadol 50 mg tablet 50 mg PO Q6H PRN Pain 08/15/19 07/06/24 Unknown History gabapentin 300 mg capsule 300 mg PO QID 08/14/20 07/06/24 Unknown History bupropion HCl 100 mg tablet 200 mg PO DAILY 02/13/21 07/06/24 Unknown History docusate sodium 100 mg capsule 100 mg PO DAILY 02/13/21 07/06/24 Unknown History vitamin B complex (B 1 tablet PO DAILY 02/13/21 07/06/24 Unknown History Complex-Vitamin B12 tablet) acetaminophen 500 mg capsule 500 mg PO Q12H PRN Muscle Pain 11/04/21 07/06/24 Unknown History amlodipine 10 mg tablet 10 mg PO DAILY 06/09/23 07/06/24 Unknown History omeprazole 40 mg capsule,delayed 20 mg PO DAILY 06/09/23 07/06/24 Unknown History release Allergies Allergy/AdvReac Type Severity Reaction Status Date / Time No Known Allergies Allergy Verified 08/23/24 19:27 Review of Systems Review of Systems: All systems reviewed & are unremarkable except as noted in HPI. All systems reviewed & are unremarkable except as noted in HPI and below PMFSH Past Medical History Medical History Afib BPH (benign prostatic hyperplasia) CAD (coronary artery disease) Diabetes Dyslipidemia Essential hypertension GERD (gastroesophageal reflux disease) Testicular hyperfunction Surgical History Surgical History History of coronary artery bypass graft History of coronary artery stent placement Family History Family History (Updated 07/06/24 @ 09:25 by LEONID Pérez) Mother Heart attack Father Heart attack Sibling No problems noted. Sibling Heart disease Cancer Acute myocardial infarction Social History Social History (Updated 07/06/24 @ 09:26 by LEONID Pérez) Smoking status: Never smoker Second hand tobacco smoke exposure: No Alcohol intake: never Substance use: never Substance use type: does not use Do You Feel Safe in your Home?: Yes Lack of Transportation: No Lack of Food: Sometimes True Current Housing: I Have Housing Concerned About Future Housing: No Difficulty Paying Gas/Electric Bills: No Difficulty Paying for Meds: No Currently Unemployed: No Education: High School Diploma/GED Difficulty w/ Childcare or Family Care: No Living arrangements: alone Occupation/Education: retired Additional occupation/education comments: [employer] Gender identity (if verbalized by the patient): Male Spiritual care concerns: No Exam Narrative: GENERAL: Elderly but well appearing, well-nourished, non-toxic, in no acute distress. HEAD: Normocephalic, atraumatic. RESPIRATORY: Airway patent, respirations nonlabored. Clear to auscultation bilaterally, no rales, rhonchi, wheezing. No significant focal lung sounds. CARDIOVASCULAR: Regular rate and rhythm without murmurs, rubs, or gallops. MUSCULOSKELETAL: Moves all extremities. No gross deformities. SKIN: Warm, dry, normal color. NEURO: A&O X3. Speech clear. Cranial nerves II-XII grossly intact. Steady gait. No ataxic movements. PSYCHIATRIC: Appropriate mood and affect. Normal interaction. Course Vital Signs Vital signs: Vital Signs Temperature 98.0 F 08/23/24 17:36 Pulse Rate 70 08/23/24 17:36 Respiratory Rate 18 08/23/24 17:36 Blood Pressure 164/75 H 08/23/24 17:36 Pulse Oximetry 100 08/23/24 17:36 Oxygen Delivery Room Air 08/23/24 17:36 Temperature 97.8 F 08/23/24 20:15 Pulse Rate 77 08/23/24 20:15 Respiratory Rate 18 08/23/24 20:15 Blood Pressure 157/90 H 08/23/24 20:15 Pulse Oximetry 99 08/23/24 20:15 Oxygen Delivery Room Air 08/23/24 17:36 MDM - URI/Sore Throat MDM Narrative Medical decision making narrative: Patient presented to ED with 9 day history of cough. Vital signs are stable upon arrival. Patient is denying any shortness of breath. Oxygen is 100% on room air. Viral swabs resulted with COVID positive. Consistent with clinical picture. Patient is vaccinated. Chest x-ray was obtained and without acute focal findings. Feel patient is safe for discharge home with outpatient follow-up. He does have been appointment with his primary care doctor tomorrow. He was given instructions on how to manage COVID-19 at home. Will prescribe Tessalon Perles. Discussed strict return precautions. Patient feels comfortable going home. In no acute distress. Discharged in stable condition. Low suspicion for PE or other cardiopulmonary abnormality. Patient is on Xarelto, compliant with this. Medical Records Attestation: I reviewed the patient's medical records. Lab Data Attestation: I reviewed the patient's lab results. Labs: Lab Results 08/23/24 Range/Units 17:40 Influenza A (RT-PCR) Negative (Negative) Influenza B (RT-PCR) Negative (Negative) RSV (RT-PCR) Negative (Negative) SARS-CoV-2 RNA (RT-PCR) Positive A (Negative) Imaging Data Attestation: I personally reviewed and interpreted this imaging study as follows: Radiologist's impression: ITS Impressions Chest X-Ray 08/23/24 19:52 IMPRESSION: No focal infiltrate or effusion. Discharge Plan Discharge Clinical Impression: COVID-19 Patient Disposition: Home, Self-Care Condition: Stable Instructions: Antibiotic Form, Cold Symptoms (ED), COVID-19 (Coronavirus Disease 2019) (ED), How to Recover from COVID-19 at Home (ED) Additional Instructions: You were diagnosed with COVID-19 today. Isolate at home as you are contagious. Stay well-hydrated at home. Recommend electrolyte rich fluids, Gatorade, Pedialyte, body armor. Zofran as needed for nausea. Utilize Tessalon Perles as needed for cough. Recommend Tylenol for discomfort and/or fevers. Recommend wgen-zzb-nqbxnvd cough and cold medicines for symptom relief, Delsym, Mucinex, DayQuil, Robitussin, TheraFlu. Follow with primary care doctor for further evaluation. Return to the ED if you experience chest pain, difficulty breathing, unable to keep down food or drink, severe pain, or any other symptoms of concern. Patient Language: Lao Prescriptions: New benzonatate 200 mg capsule 200 mg PO TID PRN (Reason: cough) Qty: 15 0RF No Action gabapentin 300 mg capsule 300 mg PO QID amlodipine 10 mg tablet 10 mg PO DAILY Contour Next Test Strips Strip See Rx Instructions .ROUTE .COMPLEX Qty: 100 1RF Dose Instruction: USE DIRECTED TO TEST BLOOD SUGAR ONCE DAILY Rx Instructions: USE DIRECTED TO TEST BLOOD SUGAR ONCE DAILY albuterol sulfate 90 mcg/actuation HFA aerosol inhaler 1 puff INHALATION Q4H PRN (Reason: shortness of breath or wheezing) Qty: 8.5 2RF metformin 1,000 mg tablet 1,000 mg PO DAILY tramadol 50 mg tablet 50 mg PO Q6H PRN (Reason: Pain) Xarelto 20 mg tablet 20 mg PO 1700 tamsulosin 0.4 mg capsule 0.4 mg PO DAILY omega-3 fatty acids [Fish Oil Concentrate] 1,000 mg capsule 1,000 mg PO DAILY akthhtzulowt-quokhdya-ahptih Tablet 1 tablet PO DAILY omeprazole 40 mg capsule,delayed release(DR/EC) 20 mg PO DAILY vitamin B complex [B Complex-Vitamin B12] Tablet 1 tablet PO DAILY bupropion HCl 100 mg tablet 200 mg PO DAILY docusate sodium 100 mg capsule 100 mg PO DAILY acetaminophen 500 mg capsule 500 mg PO Q12H PRN (Reason: Muscle Pain) clopidogrel 75 mg tablet 75 mg PO QAM 90 Days Qty: 90 1RF metoprolol tartrate 25 mg tablet 25 mg PO Q12HR 90 Days Qty: 180 1RF (DME) lancets [Ultra Fine Lancets] 30 gauge misc See Rx Instructions .ROUTE .MEDSUPPLY Qty: 100 0RF Rx Instructions: As directed test blood sugar once daily (DME) lancing device Misc See Rx Instructions .ROUTE .MEDSUPPLY Qty: 1 0RF Rx Instructions: As directed fluticasone propionate [Allergy Relief (fluticasone)] 50 mcg/actuation spray,suspension 2 spray NASAL DAILY Qty: 16 2RF levothyroxine 50 mcg tablet 50 mcg PO DAILY Qty: 90 1RF benzonatate 200 mg capsule 200 mg PO TID PRN (Reason: cough) Qty: 30 0RF Follow-up/Referrals: Gerardo Avalos DO [Primary Care Provider] - Time of Disposition: 20:04
[2024-08-23 20:15] VITALS: BP 157/90; PULSE 77; RESP 18; TEMP 36.6; O2SAT 99
== END 2024-08-23 20:16 | disposition home or self-care (01) ==
PROVIDERS: Student in an Organized Health Care Education/Training Program; Emergency Provider Physician Assistant; PCP Internal Medicine
DX: U07.1 COVID-19 (principal); I48.91 Unspecified atrial fibrillation; N40.0 Benign prostatic hyperplasia without lower urinary tract symptoms; I25.10 Atherosclerotic heart disease of native coronary artery without angina pectoris; E11.9 Type 2 diabetes mellitus without complications; E78.5 Hyperlipidemia, unspecified; I10 Essential (primary) hypertension; K21.9 Gastro-esophageal reflux disease without esophagitis; Z79.84 Long term (current) use of oral hypoglycemic drugs
CPT/HCPCS: 71046; 87637; 99283

== ENCOUNTER 2025-03-26 07:01 | Emergency (ER) | payer OTHER, SELFPAY ==
--- NOTE | ~2025-03-26 | CT_ITS ---
CT of the Abdomen and Pelvis: Indication: Abdominal pain Technique: 2.5 mm axial scans were obtained through the abdomen and pelvis following intravenous adm inistration of 100 cc of Omnipaque 350. Dose reduction technique was used on this scan by utilizing a utomated exposure control and iterative reconstruction technique. The dose-length product (DLP) was 5 30.69 mGy-cm. COMPARISON: 01/08/2022 Findings: Scans through the lung bases demonstrate probable mild bibasilar chronic interstitial garcia ges. There is a 4 mm peripheral left lower lobe pulmonary nodule (axial image 15). There is an additi onal 6 mm peripheral left lower lobe pulmonary nodule (axial image 22). There is an 8 mm ovoid nodule in the right middle lobe (axial image 3).. There is diffuse hepatic steatosis. Small hypodense splenic masses are noted. Small calcified gallsto ne present. The pancreas, adrenals and kidneys are within normal limits. There are atherosclerotic ca lcifications of the aorta. No lymphadenopathy. No bowel obstruction or bowel wall thickening. There is no evidence to suggest acute appendicitis. Images through the pelvis were performed. Urinary bladder unremarkable. No pelvic mass seen. No ascit es. Impression: Cholelithiasis. Diffuse hepatic steatosis. Subcentimeter pulmonary nodules, as above, unchanged as compared to prior chest CT dated 01/08/2022. Reviewed, dictated and finalized at [facility]. Impression: Cholelithiasis. Diffuse hepatic steatosis. Subcentimeter pulmonary nodules, as above, unchanged as compared to prior chest CT dated 01/08/2022.
--- NOTE | ~2025-03-26 | XR_ITS ---
Portable chest x-ray Comparison: 08/23/2024 Clinical History: Pain Findings: Lungs are clear, without focal consolidation or pleural effusion. Cardiomediastinal silho uette is stable. Bones and soft tissues are unremarkable. Impression: Clear lungs. Stable cardiomegaly, status post CABG. Reviewed, dictated and finalized at location . Impression: Clear lungs. Stable cardiomegaly, status post CABG.
--- OUTSIDE RECORDS SUMMARY | 2025-03-26 07:03 | XMS_ITS | Clinical Summary ---
Author Organization [facility] Address [address] [place] [id number] Care Team Providers Care Associate Relations Specialist Name Role Phone Kingsley Sarkar MD Unavailable [phone] Suhail Flores NP Primary Care Provider [phone] Allergies No known active allergies Medications ONETOUCH ULTRA BLUE TEST STRIP strip USE TO TEST ONCE DAILY 3 8 Active levothyroxine (SYNTHROID, LEVOTHROID) 50 mcg tablet Take 1 tablet (50 mcg total) by mouth daily 8 Active gabapentin (NEURONTIN) 300 mg capsule Take 1 capsule (300 mg total) by mouth 4 (four) times a day Active traMADol (ULTRAM) 50 mg tablet Take 1 tablet (50 mg total) by mouth every 6 (six) hours as needed for pain Active metFORMIN (GLUCOPHAGE) 1,000 mg tablet Take 1 tablet (1,000 mg total) by mouth daily with breakfast Active vitamin b complex tablet Take 1 tablet by mouth daily Active tamsulosin (FLOMAX) 0.4 mg extended release capsule 1 capsule (0.4 mg total) Active losartan (COZAAR) 50 mg tablet Take 1 tablet (50 mg total) by mouth daily Active rivaroxaban (XARELTO) 20 mg tablet 1 tablet (20 mg total) Active omega-3 fatty acids 1,000 mg capsule Take 1 capsule by mouth daily Active multivitamin capsule Take 1 capsule by mouth daily Active vitamin E (AQUASOL E) 400 unit capsule Take 1 capsule (400 Units total) by mouth daily Active albuterol HFA (PROVENTIL HFA,VENTOLIN HFA,PROAIR HFA) 90 mcg/actuation inhaler Inhale 1 puff every 4 (four) hours as needed for wheezing Active docusate sodium (COLACE) 100 mg capsule Take 1 capsule (100 mg total) by mouth daily Active acetaminophen (TYLENOL) 500 mg tablet Take 1 tablet (500 mg total) by mouth every 12 (twelve) hours as needed for pain Active clopidogreL (PLAVIX) 75 mg tablet Take 1 tablet (75 mg total) by mouth daily 90 tablet 1 2 Active pravastatin (PRAVACHOL) 20 mg tablet Take 1 tablet (20 mg total) by mouth daily Takes 1/2 tablet daily-VA 90 tablet 3 3 Active nitroglycerin (NITROSTAT) 0.[address] 1 tablet (0.4 mg total) under the tongue every 5 (five) minutes as needed for chest pain May repeat dose q 5 min, up to 3 doses total 25 tablet 11 4 Active acyclovir (ZOVIRAX) 200 mg capsule Take 1 capsule (200 mg total) by mouth 4 (four) times a day Active carboxymethylce llulose (REFRESH TEARS) 0.5 % ophthalmic solution Administer 1 drop into both eyes 4 (four) times a day Active HYDROPHILIC CREAM TOP Apply 1 Application topically daily Active lidocaine 5 % cream Apply 1 Application topically daily as needed (pain) Active metoprolol tartrate (LOPRESSOR) 25 mg immediate release tablet Take 1 tablet (25 mg total) by mouth 2 (two) times a day Active amLODIPine (NORVASC) 5 mg tablet Take 2 tablets (10 mg total) by mouth daily 180 tablet 3 4 Active fluticasone propionate (FLONASE) 50 mcg/actuation nasal spray Administer 1 spray into affected nostril(s) daily as needed for rhinitis or allergies 4 Active dorzolamide-arturo oloL (COSOPT) 22.3-6.8 mg/mL ophthalmic solution Administer 1 drop into affected eye(s) 2 (two) times a day 4 Active metroNIDAZOLE (METROCREAM) 0.75 % cream Apply 1 Application topically daily as needed (rash) 4 Active diclofenac sodium (VOLTAREN) 1 % gel Apply 2 g topically daily as needed (pain) 4 Active amiodarone (PACERONE) 200 mg tablet Take 1 tablet (200 mg total) by mouth daily 90 tablet 3 5 02/23/20 26 Active Active Problems Problem Noted Date Diagnosed Date CAD (coronary artery disease) 09/28/2024 Abnormal stress test 08/16/2024 Assessment & Plan (08/16/2024 9:49 AM MEDICAL TECHNOLOGIST PRN): Stress test shows new basal inferior ischemia. He has previously had his RCA stented. We discussed continued medical therapy versus invasive evaluation. We will proceed with coronary angiography. Atherosclerosis of [place] ronary artery of [place] heart without angina pectoris 12/22/2023 Assessment & Plan (10/31/2024 12:32 PM CDT): S/P PCI of RCA, Continue DAPT Assessment & Plan (08/16/2024 9:49 AM MEDICAL TECHNOLOGIST PRN): Status post PCI and CABG with new positive stress test. Recommend cardiac catheterization. Assessment & Plan (02/09/2024 9:29 AM CDT): The patient denies angina but it has been more than 2 years since his last intervention. We will schedule a surveillance stress test next visit. Assessment & Plan (12/22/2023 9:35 AM CDT): No angina. Continue clopidogrel Claudication 12/22/2023 Assessment & Plan (12/22/2023 9:35 AM CDT): Check KARINA. Primary hypertension 12/22/2023 Assessment & Plan (10/31/2024 12:34 PM CDT): Controlled with metoprolol and losartan. Assessment & Plan (08/16/2024 9:49 AM MEDICAL TECHNOLOGIST PRN): Continue amlodipine, losartan and metoprolol. Assessment & Plan (12/22/2023 9:34 AM CDT): Continue losartan. Paroxysmal atrial fibrillation 12/22/2023 Assessment & Plan (10/31/2024 12:33 PM CDT): Continue Xarelto Assessment & Plan (08/16/2024 9:50 AM MEDICAL TECHNOLOGIST PRN): No recurrence. Continue amiodarone. Assessment & Plan (02/09/2024 9:29 AM CDT): The patient remains in sinus rhythm however he has resting sinus bradycardia. I have reduced the amiodarone to 100 mg daily. Continue Xarelto Assessment & Plan (12/22/2023 9:35 AM CDT): Continue Xarelto. Increase amiodarone to 200 mg daily. Repeat EKG in 3 weeks. Hx of colonic polyps 04/22/2018 Overview (04/22/2018): Added automatically from request for surgery [id number] Lipoma of right shoulder 04/21/2018 Overview (04/21/2018): Added automatically from request for surgery [id number] Cardiac disease 12/24/2013 Overview (11/13/2016): Heart trouble Encounters Date Type Department Care Team Description 02/20/2025 Telephone [facility] Nurse [address] [place] [phone] Aishwarya Garnica MA Bleeding/Bruising from Last 3 Months Surgical History Surgery Date Site/Laterality Comments HEART SURGERY CARDIAC STENT PLACEMENT COLONOSCOPY CARDIAC CATHETERIZATION 01/10/2022 [facility] CARDIAC CATHETERIZATION 09/28/2024 N/A Procedure: LEFT HEART CATHETERIZATION WITH CORONARY ANGIOGRAPHY AND WITH OR WITHOUT LEFT VENTRICULOGRAM [id number]; Surgeon: Cayetano Ireland MD; Location: CARDIAC STEEL ESTIMATOR; Service: Cardiovascular; Laterality: N/A; Medical devices from this surgery are in the Medical Devices section. 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 Hyperlipidemia Type 2 diabetes mellitus Depression Hypothyroid Lipoma Sleep apnea Arrhythmia GERD (gastroesophageal reflux disease) Atrial fibrillation, controlled (HCC) Abnormal stress test Family History Medical History Relation Name Comments Heart disease Father Heart disease Mother Relation Name Status Comments Father Mother Social History Tobacco Use Types Packs/Day Years Used Date Smoking Tobacco: Never Smokeless Tobacco: Never Tobacco Cessation:Counseling Given: Not Answered Alcohol Use Standard Drinks/Week Comments No 0 (1 standard drink = 0.6 oz pur e alcohol) AUDIT-C Answer Date Recorded Q1: How often do you have a drink containing alcohol? Never 09/28/2024 Q2: How many drinks containi ng alcohol do you have on a typical day when you are drinking? Patient does not drink Q3: How often do you have si x or more drinks on one occasion? Never 09/28/2024 Personal Safety Answer Date Recorded Have you ever been in or are you currently in a harmful physical or emotional relationship or is someone making you feel afraid or unsafe? Denies 09/28/2024 Sex and Gender Information Value Date Recorded Sex Assigned at Not on file Legal Sex Male 1:14 AM MEDICAL TECHNOLOGIST PRN Gender Identity Not on file Sexual Orientation Not on file Obstetrics History Last Filed Vital Signs Vital Sign Reading Time Taken Comments Blood Pressure 137/77 10/31/2024 11:42 AM CDT Pulse 61 10/31/2024 11:42 AM CDT Temperature 36.2 C (97.2 F) 09/29/2024 7:45 AM MEDICAL TECHNOLOGIST PRN Respiratory Rate 16 10/31/2024 11:42 AM CDT Oxygen Saturation 97% 10/31/2024 11:42 AM CDT Inhaled Oxygen Concentration - - Weight 83.9 kg (185 lb) 10/31/2024 11:42 AM CDT Height 175.3 cm (5' 9) 09/28/2024 9:26 AM MEDICAL TECHNOLOGIST PRN Body Mass Index 27.32 09/28/2024 9:26 AM MEDICAL TECHNOLOGIST PRN Plan of Treatment Health Maintenance Due Date Last Done Comments Depression Screening 1945 Hepatitis B Screening 1963 Well Visit 65+ 2009 Influenza Vaccine (#1) 2025 , 05/05/2023, 05/19/2019, Additional history exists Fall Risk Assessment 09/29/2025 09/29/2024 DTaP/Tdap/Td Vaccine (3 - Td or Tdap) 05/03/2034 05/03/2024, 06/06/2014, 06/05/2010 Pneumococcal vaccine 65+ Completed 017, 09/18/2014, 05/10/2009 Colon Cancer Screening-CT Colonography Discontinued 05/05/2018 Colon Cancer Screening-Colonoscopy Discontinued 05/05/2018 Colon Cancer Screening-DNA Stool Discontinued 05/05/20 18 Colon Cancer Screening-FIT Discontinued 05/05/2018 Colon Cancer Screening-FOBT Discontinued 05/05/2018 Colon Cancer Screening-Sigmoidoscopy Discontinued 05/05/2018 Colorectal Cancer Screening Discontinued Zoster Vaccine Completed 05/19/2019, 11/17/2018 Medical Devices Implanted Type Area Medical Director Of Hospice Device Identifier Shelf Expiration Date Model / Serial / Lot [place] Airline Synergy Xd Monorail 2.75mm 16mm 144cm Delivery System 1 Access [id number] - [id number] Implanted:Qty: 1 on 09/28/2024 by Cayetano Ireland MD at [facility] [place] Air[employer] 04/25/2026 [id number] 270 / / [id number] [place] Airline Synergy Xd Monorail 2.25mm 12mm 144cm Delivery System 1 Access [id number] - [id number] Implanted:Qty: 1 on 09/28/2024 by Cayetano Ireland MD at [facility] [email or web address] 01/31/2026 [id number] 220 / / [id number] [facility] Mynxgrip 6-7fr Balloon Catheter Integrate Sealant Lock Latex Free [id number] - [id number] Implanted:Qty: 1 on 09/28/2024 by Cayetano Ireland MD at [facility] 06/20/2026 [id number] / / [id number] Procedures Procedure Name Priority Date/Time Associated Diagnosis Comments COLONOSCOPY 05/05/2018 8:13 AM CDT from Last 3 Months or Most Recently Relevant to Health Maintenance Results * COLONOSCOPY (05/05/2018 8:13 AM CDT) Anatomical Region Laterality Modality Other Narrative Procedure Note Olagbegi, Olayiwola C., MD - 05/05/2018 8:13 AM CDT [facility] Patient Name: Tuyet Castellano Procedure Date: 05/05/2018 8:13 AM Date of : 1945 Admit Type: Outpatient Age: 72 Gender: Male Note Status: Finalized Attending MD: Surendra Maldonado M.D. Procedure Date: 05/05/2018 Procedure: Colonoscopy Indications: High risk colon cancer surveillance: Personalhistory of colonic polyps, Last colonoscopy 10 years ago Providers: Surendra Maldonado M.D., Jonny Jeffrey (Anesthesia Staff), Ludwig Marinelli RN Referring MD: David Stoner M.D. Medicines: Monitored Anesthesia Care Complications: No immediate complications. Estimated Blood Loss: Estimated blood loss: none. Procedure: Pre-Anesthesia Assessment: - Prior to the procedure, a History and Physical was performed, and patient medications and allergieswere reviewed. The patient is competent. The risks and benefits of the procedure and the sedation optionsand risks were discussed with the patient. All questions were answered and informed consent was obtained. Patient identification and proposed procedure were verified by the physician, the nurse and the anesthesiologist in the procedure room. MentalStatus Examination: alert and oriented. Airway Examination: normal oropharyngeal airway and neck mobility. Respiratory Examination: clear to auscultation. CV Examination: normal. Prophylactic Antibiotics: The patient does not require prophylactic antibiotics. Prior Anticoagulants: The patient has taken Coumadin (warfarin), last dose was 5 days prior to procedure. ASA Grade Assessment: III - A patient with severe systemic disease. After reviewing the risks and benefits, the patient was deemed in satisfactory condition to undergo the procedure. The anesthesiaplan was to use monitored anesthesia care (MAC).Immediately prior to administration of medications, the patientwas re-assessed for adequacy to receive sedatives. The heart rate, respiratory rate, oxygen saturations,blood pressure, adequacy of pulmonary ventilation, and response to care were monitored throughout the procedure. The physical status of the patient was re-assessed after the procedure. - The risks and benefits of the procedure and the sedation options and risks were discussed with the patient. All questions were answered and informed consent was obtained. After I obtained informed consent, the scope waspassed under direct vision. Throughout the procedure, the patient's blood pressure, pulse, and oxygensaturations were monitored continuously. The scope was passedunder direct vision. The Colonoscope CF-Q180 [id number] introduced through the anus and advanced to the the cecum, identified by appendiceal orifice andileocecal valve. The colonoscopy was performed without difficulty. The patient tolerated the procedurewell. The quality of the bowel preparation was adequate.The bowel preparation used was SUPREP. Findings: Multiple small-mouthed diverticula were found in the entire colon. Two sessile polyps were found at the splenic flexure and in the ascending colon. The polyps were 5 to 6 mm in size. These polyps were removed with a hot biopsy forceps. Resection and retrieval were complete. Estimated blood loss: none. The exam was otherwise without abnormality on direct and retroflexion views. Impression: - Diverticulosis in the entire examined colon. - Two 5 to 6 mm polyps at the splenic flexure and in the ascending colon. Resected and retrieved. - The examination was otherwise normal on direct and retroflexion views. Recommendation: - Await pathology results. - High fiber diet. - Repeat colonoscopy in 5 years for surveillance. Procedure Code(s): --- Professional --- 67489, Colonoscopy, flexible; with removal oftumor(s), polyp(s), or other lesion(s) by hot biopsy forceps Diagnosis Code(s): --- Professional --- Z86.010, Personal history of colonic polyps D12.3, Benign neoplasm of transverse colon (hepatic flexure or splenic flexure) D12.2, Benign neoplasm of ascending colon K57.30, Diverticulosis of large intestine without perforation or abscess without bleeding CPT copyright 2017 [employer]. All rights reserved. The codes documented in this report are preliminary and upon commercial loan administrator reviewmay be revised to meet current compliance requirements. Electronically signed by Surendra Maldonado M.D. Surendra Maldonado M.D. 05/05/2018 8:44:15 AM Number of Addenda: 0 Note Initiated On: 05/05/2018 8:13 AM Surendra Maldonado MD ENDOSCOPY PROCEDURES Fi nal Result from Last 3 Months or Most Recently Relevant to Health Maintenance Insurance MEDICARE [facility] Address: [facility] [address] [place] [address] COMMERCIAL GENERIC [employer] PPO [employer] [facility] Advance Directives For more information, please contact: [phone] * Full Code (Latest Code Status on File) Date Activated Date Inactivated Comments 09/28/2024 2:16 PM 09/29/2024 4:57 PM Care Teams Associate Relations Specialist Relationship Specialty Start Date End Date Suhail Flores NP [address] [address] PCP - General Nurse Practitioner 09/13/24 Kingsley Sarkar MD [address] [place] [address] [address] [place] [address] Consulting Physician Cardiovascular Disease 01/14/24
--- OUTSIDE RECORDS SUMMARY | 2025-03-26 07:04 | XMS_ITS | Continuity of Care Document ---
Author Name [facility] Organization [facility] Care Team Providers Care Cooperative Education Coordinator Name Role Phone [facility] Unavailable Unavailable Problems Combined list of problems from Department of Defense and Veterans Affairs facilities. It does not include entries that were removed or entered in error. Problem Status Onset Date Problem Type Date of Resolution Comments Source History of deep vein thrombosis Active 08/10/19 15 Condition [facility] Acne rosacea Active Condition [facility] Altitudinal hemianopia Active Condition [facility] Benign prostatic hyperplasia Active Condition [facility] Cataracts Active Condition [facility] Central scotoma Active Condition [facility] Cholelithiasis Active Condition Nov 082021 Entered By: YOMI ABARCA Comment: Seen on abd CT 07/01/21 [facility] Cholelithiasis without obstruction Active Condition [facility] Depressive disorder Active Condition [facility] Diabetes mellitus type 2 Active Condition [facility] Dyspnea Active Condition [facility] Erectile dysfunction Active Condition [facility] Essential hypertension Active Condition [facility] Exposure to potentially hazardous substance Active Condition [facility] Gastroesophageal reflux disease Active Condition [facility] Generalized anxiety disorder Active Condition [facility] Herpes simplex Active Condition [facility] History of branch retinal vein occlusion Active Condition Oct 13, 2017 Entered By: MIGDALIA TORREZ Comment: Madhu retinal vein occlusion with macular edema OD 10/13/17 [facility] History of coronary artery bypass grafting Active Condition Jun 06, 2021 Entered By: YOMI ABARCA Comment: 5v 1994. PTCA x 3 1997 [facility] Hyperlipidemia Active Condition [facility] Hypogonadism Active Condition [facility] Hypothyroidism Active Condition [facility] Insomnia Active Condition [facility] Lack of exercise Active Condition [facility] Long-term current use of anticoagulant (SNOMED CT 412346467) Active Condition [facility] Low back pain Active Condition [facility] Lymphedema Active Condition [facility] Megaloblastic anemia due to vitamin B>12< deficiency Active Condition Jun 06, 2021 Entered By: YOMI ABARCA Comment: History. Patient on supplementatio n. [facility] Multiple pulmonary nodules Active Condition Jul 01, 2021 Entered By: ANDREW WINTERS Comment: 06/2021: Ct of abd/pelvis without contarst showed solid 7 mm LLL pulmonary nodule and 5 mm LLL pulmonary nodule. Recommended to have dedicated CT chest.Nov 21, 2021 Entered By: YOMI ABARCA Comment: -LLL nodule measuring 7 mm was noted on chest CT 07/25/22---rep eat pending to be scheduled for 02/2022. [facility] Obstructive sleep apnea Active Condition [facility] Occlusion of branch of retinal vein of right eye Active Condition [facility] Optic atrophy Active Condition [facility] Pain in right foot Active Condition [facility] Peripheral neuropathy due to type 2 diabetes mellitus Active Condition [facility] Pseudophakia Active Condition [facility] Sensorineural hearing loss, bilateral Active Condition [facility] Acute Venous Embolism and Thrombosis of unspecified Deep Vessels of lower [place] Inactive Condition 06/06/2021 [facility] Altitudinal hemianopia (SNOMED CT 579116203) Inactive Condition 06/06/2021 [facility] Anxiety disorder Inactive Condition 06/06/2021 [facility] Atrophy, Optic Inactive Condition 06/06/2021 [facility] Cataract, Combined Inactive Condition 06/06/2021 [facility] Central scotoma (ICD-9-CM 368.41) Inactive Condition 06/06/2021 [facility] Encounter for Therapeutic Drug Monitoring (ICD-9-CM V58.83) Inactive Condition 06/06/2021 [facility] Generalized Anxiety Disorder * (ICD-9-CM 300.02) Inactive Condition 06/06/2021 [facility] Hearing Loss, Sensorineural, Unspecified Inactive Condition 06/06/2021 [facility] Herpes Inactive Condition 06/06/2021 [facility] HTN Inactive Condition 06/06/2021 [facility] Hypertension Inactive Condition 06/06/2021 [facility] INSOMNIA, unspecified Inactive Condition 06/06/2021 [facility] Obstructive sleep apnea of adult (SNOMED CT 5756011135311) Inactive Condition 11/21/2021 [facility] Other B-complex deficiencies (ICD-9-CM 266.2) Inactive Condition 06/06/2021 [facility] Polyneuropathy Inactive Condition 11/21/2021 [facility] Postsurgical Aortocoronary Bypass Status Inactive Condition 06/06/2021 Jun 05, 2010 Entered By: AMBER COSTA Comment: 5v 2009 Entered By: AMBER COSTA Comment: PTCA x3 1997 [facility] Pseudophakia Inactive Condition 06/06/2021 [facility] Unresolved Inactive Condition 11/21/2021 [facility] Venous thrombosis (SNOMED CT 980825217) Inactive Condition 06/06/2021 Aug 07, 2010 Entered By: AMBER COSTA Comment: RLE ORIGINALLY Dx'd 4YRS AGO [facility] Diagnosis: ICD-10-CM Z51.81 Encounter for therapeutic drug level monitoring Active Diagnosis [facility] Diagnosis: ICD-10-CM H54.511A Low vision right eye category 1, normal vision left eye Active Diagnosis [facility] Diagnosis: ICD-10-CM H34.8310 Trib rtnl vein occlusion, right eye, with macular edema Active Diagnosis [facility] Diagnosis: ICD-10-CM H34.8110 Central retinal vein occls, right eye, with macular edema Active Diagnosis [facility] Diagnosis: ICD-10-CM M16.12 Unilateral primary osteoarthritis, left hip Active Diagnosis [facility] Diagnosis: ICD-10-CM Z01.20 Encounter for dental exam and cleaning w/o abnormal findings Active Diagnosis [facility] Diagnosis: ICD-10-CM K03.6 Deposits [accretions] on teeth Active Diagnosis [facility] Diagnosis: ICD-10-CM L72.3 Sebaceous cyst Active Diagnosis [facility] Diagnosis: ICD-10-CM Z95.1 Presence of aortocoronary bypass graft Active Diagnosis [facility] Diagnosis: ICD-10-CM H35.3132 Nexdtve age-related mclr degn, bilateral, intermed dry stage Active Diagnosis [facility] Diagnosis: ICD-10-CM K80.20 Calculus of gallbladder w/o cholecystitis w/o obstruction Active Diagnosis [facility] Diagnosis: ICD-10-CM I25.83 Coronary atherosclerosis due to lipid rich plaque Active Diagnosis [facility] Diagnosis: ICD-10-CM M25.551 Pain in right hip Active Diagnosis [facility] Diagnosis: ICD-10-CM H35.81 Retinal edema Active Diagnosis [facility] Diagnosis: ICD-10-CM M79.606 Pain in leg, unspecified Active Diagnosis [facility] Diagnosis: ICD-10-CM M25.559 Pain in unspecified hip Active Diagnosis [facility] Diagnosis: ICD-10-CM L71.8 Other rosacea Active Diagnosis [facility] Diagnosis: ICD-10-CM Z23 Encounter for immunization Active Diagnosis [facility] Diagnosis: ICD-10-CM H02.831 Dermatochalasis of right upper eyelid Active Diagnosis [facility] Diagnosis: ICD-10-CM I89.0 Lymphedema, not elsewhere classified Active Diagnosis [facility] Diagnosis: ICD-10-CM E11.42 Type 2 diabetes mellitus with diabetic polyneuropathy Active Diagnosis [facility] Diagnosis: ICD-10-CM E11.40 Type 2 diabetes mellitus with diabetic neuropathy, unsp Active Diagnosis [facility] Diagnosis: ICD-10-CM H54.3 Unqualified visual loss, both eyes Active Diagnosis [facility] Diagnosis: ICD-10-CM Z46.89 Encounter for fitting and adjustment of oth devices Active Diagnosis [facility] Diagnosis: ICD-10-CM E11.9 Type 2 diabetes mellitus without complications Active Diagnosis [facility] Diagnosis: ICD-10-CM H90.3 Sensorineural hearing loss, bilateral Active Diagnosis [facility] Medications Combined list of outpatient medications from Department of Defense and [facility] Affairs facilities.Medications provided include 1) outpatient medications from the last 15 months, and 2) patient-reported medications. Medication Details Route Status Patient Instructions Prescription Expires Prescription Number Last Dispense Date Ordering Provider Order Date Order Qty Source ACYCLOVIR 200MG CAP TAKE ONE CAPSULE BY MOUTH FIVE TIMES A DAY FOR VIRAL INFECTIO N ORAL DISCONT INUED 03/10/2024 [id number] 4 CROW COSTA 2022 [facility] ACYCLOVIR 200MG CAP TAKE ONE CAPSULE BY MOUTH FIVE TIMES A DAY FOR VIRAL INFECTIO N ORAL 01/28/2025 [id number] 5 CROW COSTA 2023 450 [facility] AMIODARONE HCL (PACERONE) 200MG TAB TAKE ONE TABLET BY MOUTH ONCE A DAY ORAL ACTIVE AMELIA LAGU[place] 2021 [facility] AMLODIPINE BESYLATE 10MG TAB TAKE ONE TABLET BY MOUTH ONCE A DAY FOR HIGH BLOOD PRESSURE ORAL ACTIVE 10/07/2025 [id number] 5 LOCOME ELVI ANN PENA 2024 90 [facility] AMLODIPINE BESYLATE 10MG TAB TAKE ONE TABLET BY MOUTH ONCE A DAY FOR HIGH BLOOD PRESSURE ORAL DISCONT INUED 07/05/2024 [id number] 4 Jacquelyn SPAULDING S 2023 90 [facility] CARBOXYMETH YLCELLULOSE NA 0.5% SOLN,OPH INSTILL 2 DROPS IN BOTH EYES FOUR TIMES A DAY NEEDED FOR DRY EYES OPHTHA LMIC DISCONT INUED 08/28/2024 [id number] 4 [facility] MARSH NICOLE 2023 15 [facility] CARBOXYMETH YLCELLULOSE NA 0.5% SOLN,OPH INSTILL 2 DROPS IN BOTH EYES FOUR TIMES A DAY NEEDED FOR DRY EYES OPHTHA LMIC 08/28/2024 [id number] 5 [facility] GOOD ALA NICOLE 2023 30 [facility] CLOPIDOGREL BISULFATE 75MG TAB TAKE ONE TABLET BY MOUTH ONCE A DAY TO THIN BLOOD ORAL ACTIVE 04/15/2025 [id number] 5 CROW COSTA 2023 90 [facility] CLOPIDOGREL BISULFATE 75MG TAB TAKE ONE TABLET BY MOUTH ONCE A DAY TO THIN BLOOD ORAL DISCONT INUED 03/10/2024 [id number] CROW COSTA 2022 90 [facility] DOCUSATE NA 100MG CAP TAKE ONE CAPSULE BY MOUTH TWICE DAILY NEEDED TO SOFTEN STOOL. HOLD FOR LOOSE STOOL/DI ARRHEA. ORAL ACTIVE 05/04/2025 [id number] 4 PHAMME YAMILE ANN PENA 2023 200 [facility] DOCUSATE NA 100MG CAP TAKE ONE CAPSULE BY MOUTH TWICE DAILY NEEDED TO SOFTEN STOOL. HOLD FOR LOOSE STOOL/DI ARRHEA. ORAL DISCONT INUED 03/10/2024 [id number] 4 CROW COSTA 2022 200 [facility] DORZOLAMIDE HCL 22.3MG/MCKENNA LOL MALEATE 6.8MG/ML SOLN,OPH INSTILL 1 DROP IN BOTH EYES TWICE A DAY FOR GLAUCOMA OPHTHA LMIC ACTIVE 04/27/2025 [id number] 5 MAGY CUI R 2023 10 [facility] DORZOLAMIDE HCL 22.3MG/MCKENNA LOL MALEATE 6.8MG/ML SOLN,OPH INSTILL 1 DROP IN BOTH EYES TWICE A DAY FOR GLAUCOMA OPHTHA LMIC DISCONT INUED 03/10/2024 [id number] 4 CROW COSTA 2022 10 [facility] FLUTICASONE PROPIONATE 50MCG/SPRAY SOLN,NASAL, 16GM INSTILL 2 SPRAYS IN NOSTRIL( S) ONCE A DAY (MUST BE USED DIRECTED FOR MINIMUM OF 21 DAYS TO PROVIDE ADEQUATE BENEFITS ) NASAL ACTIVE 05/04/2025 [id number] ME ANN GONZALES 2023 1 [facility] GABAPENTIN 300MG CAP TAKE TWO CAPSULES BY MOUTH THREE TIMES A DAY FOR PAIN ORAL ACTIVE 09/07/2025 [id number] 5 ME ANN GONZALES 2024 540 [facility] GABAPENTIN 300MG CAP TAKE TWO CAPSULES BY MOUTH THREE TIMES A DAY FOR PAIN ORAL DISCONT INUED 05/27/2024 [id number] 4 Daisha HERNANDEZ 2022 540 [facility] LEVOTHYROXI NE NA 50MCG TAB (SYNTHROID) TAKE ONE TABLET BY MOUTH EVERY MORNING BEFORE A MEAL ORAL ACTIVE CROW COSTA 2018 [facility] LIDOCAINE 5% OINT,TOP APPLY SPARINGL Y TO AFFECTED AREA(S) THREE TIMES A DAY NEEDED APPLIED TO FEET FOR PAIN TOPICA L ACTIVE 05/04/2025 [id number] 5 ME ANN GONZALES 2023 70 [facility] LIDOCAINE 5% PATCH APPLY 1 PATCH TO SKIN SITE ONCE A DAY NEEDED APPLY PATCH AND PRESS FIRMLY FOR 10-15 SECONDS. KEEP ON FOR 12 HOURS THEN REMOVE PATCH FOR 12 HOURS. TRANSD ERMAL 02/28/2024 [id number] 4 CROW COSTA 2022 30 [facility] LOSARTAN POTASSIUM 100MG TAB TAKE ONE-HALF TABLET BY MOUTH ONCE A DAY TO LOWER BLOOD PRESSURE ORAL ACTIVE 05/04/2025 [id number] 5 CROW COSTA 2023 45 [facility] LOSARTAN POTASSIUM 100MG TAB TAKE ONE-HALF TABLET BY MOUTH ONCE A DAY TO LOWER BLOOD PRESSURE ORAL DISCONT INUED 03/10/2024 [id number] 4 CROW COSTA 2022 45 [facility] METFORMIN HCL 1000MG TAB TAKE ONE-HALF TABLET BY MOUTH TWICE A DAY WITH MEALS FOR BLOOD SUGAR CONTROL. TAKE WITH FOOD. AVOID ALCOHOL. DISCONTI NUE BEFORE GETTING XRAY DYE. ORAL ACTIVE 05/04/2025 [id number] 5 LOCOME ANN BOLESE 2023 90 [facility] METFORMIN HCL 1000MG TAB TAKE ONE-HALF TABLET BY MOUTH TWICE A DAY WITH MEALS FOR BLOOD SUGAR CONTROL. TAKE WITH FOOD. AVOID ALCOHOL. DISCONTI NUE BEFORE GETTING XRAY DYE. ORAL DISCONT INUED 03/10/2024 [id number] 4 CROW COSTA 2022 90 [facility] Ruiz METOPROLOL TARTRATE 100MG TAB TAKE ONE-HALF TABLET BY MOUTH TWICE A DAY FOR HIGH BLOOD PRESSURE TAKE WITH OR IMMEDIAT ALEKSANDR FOLLOWIN G FOOD. ORAL ACTIVE 11/02/2025 [id number] 5 ME ANN GONZALESE 2024 90 [facility] METOPROLOL TARTRATE 100MG TAB TAKE ONE-HALF TABLET BY MOUTH TWICE A DAY FOR HIGH BLOOD PRESSURE TAKE WITH OR IMMEDIAT ALEKSANDR FOLLOWIN G FOOD. ORAL DISCONT INUED 10/23/2024 [id number] CROW COSTA 2023 90 [facility] METRONIDAZO LE 0.75% CREAM,TOP APPLY LIBERALL Y TO AFFECTED AREA(S) ONCE A DAY FOR ROSACEA (TOPICAL USE ONLY) TOPICA L ACTIVE 06/22/2025 [id number] SHARRON SCOTT S 2023 45 [facility] METRONIDAZO LE 0.75% CREAM,TOP APPLY LIGHTLY TO AFFECTED AREA(S) TWICE A DAY FOR INFECTIO N. FOR TOPICAL USE ONLY. TO FACE TOPICA L 06/15/2024 [id number] 4 SILVANA CORDERO 2022 45 [facility] MULTIVIT/OP HTH AREDS2/LUTE IN/ZEAXANTH IN CAP/TAB TAKE 1 CAP/TAB BY MOUTH TWICE A DAY WITH MEAL(S) FOR EYE HEALTH AVOID IF YOU HAVE PEANUT ALLERGY. ORAL ACTIVE 10/27/2025 [id number] 5 CORINNE GIRALDO 2024 120 [facility] MULTIVIT/OP HTH AREDS2/LUTE IN/ZEAXANTH IN CAP/TAB TAKE 1 CAP/TAB BY MOUTH TWICE A DAY WITH MEAL(S) FOR EYE HEALTH AVOID IF YOU HAVE PEANUT ALLERGY. ORAL DISCONT INUED 04/27/2025 [id number] MAGY CUI 2023 120 [facility] MULTIVITAMI N/MINERALS ANTIOXIDANT CAP/TAB TAKE ONE TABLET BY MOUTH ONCE A DAY ORAL ACTIVE CROW COSTA 2012 [facility] OMEPRAZOLE 20MG CAP,EC TAKE ONE CAPSULE BY MOUTH EVERY MORNING FOR GASTROES OPHAGEAL REFLUX DISEASE 30 MINUTES BEFORE MEAL ORAL ACTIVE 05/04/2025 [id number] 5 ME ANN GONZALES BECKY 2023 90 [facility] POLYVINYL ALCOHOL 1.4% SOLN,OPH INSTILL 1 DROP IN BOTH EYES FOUR TIMES A DAY NEEDED FOR DRY EYE(S) OPHTHA LMIC ACTIVE 02/23/2026 [id number] 5 NINFA WHITE N 2024 15 [facility] POLYVINYL ALCOHOL 1.4% SOLN,OPH INSTILL 1 DROP IN BOTH EYES FOUR TIMES A DAY NEEDED FOR DRY EYE(S) OPHTHA LMIC DISCONT INUED 01/14/2026 [id number] 2024 15 [facility] PRAVASTATIN NA 40MG TAB TAKE ONE TABLET BY MOUTH EVERY EVENING TO LOWER CHOLESTE ROL (REPORT ANY MUSCLE PAIN OR WEAKNESS ) ORAL ACTIVE 11/02/2025 [id number] ME ANN GONZALES 2024 90 [facility] PRAVASTATIN NA 40MG TAB TAKE ONE-HALF TABLET BY MOUTH EVERY EVENING FOR HIGH CHOLESTE ROL TO LOWER CHOLESTE ROL (REPORT ANY MUSCLE PAIN OR WEAKNESS ) ORAL DISCONT INUED (EDIT) 05/04/2025 [id number] ME ANN GONZALES 2023 45 [facility] PRAVASTATIN NA 40MG TAB TAKE ONE-HALF TABLET BY MOUTH EVERY EVENING FOR HIGH CHOLESTE ROL TO LOWER CHOLESTE ROL (REPORT ANY MUSCLE PAIN OR WEAKNESS ) ORAL DISCONT INUED 05/01/2024 [id number] Daisha HERNANDEZ 2023 45 [facility] RIVAROXABAN 20MG TAB TAKE ONE TABLET BY MOUTH ONCE A DAY TO THIN BLOOD. TAKE WITH FOOD. ORAL SUSPEND ED 03/18/2026 [id number] 5 SA BRANDEN POOLE 2024 90 [facility] RIVAROXABAN 20MG TAB TAKE ONE TABLET BY MOUTH ONCE A DAY TO THIN BLOOD. TAKE WITH FOOD. ORAL DISCONT INUED 05/04/2025 [id number] PHAMYAMILEME ANN GARVINE 2023 90 [facility] RIVAROXABAN 20MG TAB TAKE ONE TABLET BY MOUTH ONCE A DAY TO THIN BLOOD. TAKE WITH FOOD. ORAL DISCONT INUED 06/02/2024 [id number] 4 SA BRANDEN POOLE 2022 90 [facility] SILDENAFIL CITRATE 100MG TAB TAKE ONE-HALF TABLET BY MOUTH EVERY WEEK NEEDED FOR ERECTILE DYSFUNCT ION (TAKE 60 MINUTES PRIOR TO SEXUAL ACTIVITY ) - LIMIT 6 DOSES PER 30 DAYS ORAL ACTIVE 08/17/2025 [id number] 5 MADDISON NUNEZ 2024 9 [facility] TAMSULOSIN HCL 0.4MG CAP TAKE ONE CAPSULE BY MOUTH EVERY EVENING APPROXIM ATELY 30 MINUTES AFTER THE SAME MEAL EACH DAY (FOR PROSTATE ) ORAL ACTIVE 02/20/2026 [id number] CROW COSTA 2024 90 [facility] TAMSULOSIN HCL 0.4MG CAP TAKE ONE CAPSULE BY MOUTH EVERY EVENING APPROXIM ATELY 30 MINUTES AFTER THE SAME MEAL EACH DAY (FOR PROSTATE ) ORAL DISCONT INUED 07/04/2025 [id number] 5 CROW COSTA 2024 90 [facility] TAMSULOSIN HCL 0.4MG CAP TAKE ONE CAPSULE BY MOUTH EVERY EVENING APPROXIM ATELY 30 MINUTES AFTER THE SAME MEAL EACH DAY (FOR PROSTATE ) ORAL DISCONT INUED 04/05/2025 [id number] 4 CROW COSTA 2023 90 [facility] TAMSULOSIN HCL 0.4MG CAP TAKE ONE CAPSULE BY MOUTH EVERY EVENING APPROXIM ATELY 30 MINUTES AFTER THE SAME MEAL EACH DAY (FOR PROSTATE ) ORAL DISCONT INUED 03/10/2024 [id number] CROW COSTA 2023 90 [facility] TRAMADOL HCL 50MG TAB TAKE 1 TABLET BY MOUTH FOUR TIMES A DAY NEEDED FOR PAIN ORAL 02/16/2025 [id number] 5 CROW COSTA 2024 90 [facility] Ruiz TRAMADOL HCL 50MG TAB TAKE 1 TABLET BY MOUTH FOUR TIMES A DAY NEEDED FOR PAIN ORAL 07/03/2024 [id number] CROW COSTA 2023 90 [facility] VITAMIN B COMPLEX CAP TAKE 2 CAPSULES BY MOUTH EVERY MORNING FOR VITAMIN SUPPLEME NTATION. ORAL ACTIVE 10/04/2025 [id number] 5 CROW COSTA 2024 200 [facility] VITAMIN B COMPLEX CAP TAKE 2 CAPSULES BY MOUTH EVERY MORNING FOR VITAMIN SUPPLEME NTATION. ORAL DISCONT INUED 10/23/2024 [id number] CROW COSTA 2023 200 [facility] Allergies, Adverse Reactions, Alerts Combined list of allergies from Department of Defense and Veterans Affairs facilities. It does not include entries that were removed or entered in error. Substance Category Reaction Severity Reaction type Status Date Reported Comments Source SIMVASTATIN Propensity to adverse reactions to drug (finding) active 0 [facility] Immunizations Combined list of available immunizations from the Department of Defense and Veterans Affairs facilities. Immunization Series Date Given Administered By Site Reaction Lot Number CVX Code Drug Tab Builder Status Comments Source INFLUENZA, HIGH-DOSE, TRIVALENT, PF 2023 OPAL AVINA LEFT DELTO ID [id number] 135 complet ed Completed Series, [facility] RSV, BIVALENT, PROTEIN SUBUNIT RSVPREF, DILUENT RECONSTITUTED , 0.5 ML, PF 2023 JORGE LUIS SPAULDING RIGHT DELTO ID [id number] 305 complet ed Completed Series, [facility] TDAP 2023 JORGE LUIS SPAULDING LEFT DELTO ID [id number] 115 complet ed Booster for Series, [facility] INFLUENZA, HIGH-DOSE, QUADRIVALENT 2022 RONNI LARIOS RIGHT DELTO ID [id number] 197 complet ed Completed Series, [facility] INFLUENZA VACCINE, QUADRIVALENT, ADJUVANTED 2021 205 complet ed [facility] COVID-19 (Motista), MRNA, LNP-S, PF, 30 MCG/0.3 ML DOSE 3 2020 208 complet ed PFR; [id number]; 1 [facility] INFLUENZA VACCINE, QUADRIVALENT, ADJUVANTED 2020 205 complet ed [facility] COVID-19 (Motista), MRNA, LNP-S, PF, 30 MCG/0.3 ML DOSE 2 2020 208 complet ed PFR; [id number]; [address] [place] [address] DIVIS[facility] N COVID-19 (Motista), MRNA, LNP-S, PF, 30 MCG/0.3 ML DOSE 1 2020 208 complet ed PFR; [id number]; 1 [facility] INFLUENZA, HIGH-DOSE, QUADRIVALENT 2019 197 complet ed [facility] INFLUENZA, INJECTABLE, QUADRIVALENT, PRESERVATIVE FREE 2018 150 complet ed [facility] ZOSTER RECOMBINANT 2 2018 187 complet ed [facility] ZOSTER RECOMBINANT 1 2018 187 complet ed [facility] INFLUENZA, INJECTABLE, QUADRIVALENT, PRESERVATIVE FREE [address] [facility] INFLUENZA, INJECTABLE, QUADRIVALENT, PRESERVATIVE FREE 2016 150 complet ed [facility] PNEUMOCOCCAL CONJUGATE PCV 13 2016 133 complet ed [facility] INFLUENZA, SEASONAL, INJECTABLE, PRESERVATIVE FREE 2014 140 complet ed [facility] PNEUMOCOCCAL POLYSACCHARID E [id number] 2014 33 complet ed [facility] INFLUENZA, UNSPECIFIED FORMULATION 2013 88 complet ed [facility] TDAP 2013 115 complet ed Right Deltoid [facility] INFLUENZA, UNSPECIFIED FORMULATION 2012 88 complet ed [facility] INFLUENZA, UNSPECIFIED FORMULATION 2011 88 complet ed [facility] INFLUENZA, UNSPECIFIED FORMULATION 2010 88 complet ed [facility] INFLUENZA, UNSPECIFIED FORMULATION 2009 88 complet ed [facility] TD(ADULT) UNSPECIFIED FORMULATION 2009 139 complet ed Left Deltoid [facility] PNEUMOCOCCAL, UNSPECIFIED FORMULATION 2008 109 complet ed [facility] Results Combined list of recent chemistry, hematology and other laboratory results from Department of Defense and Veterans Affairs, ranging from 15 months to all on record, depending upon the facility. Order Name Results Value Reference Range Date Interpretation Specimen Comments Source URINE DRUG SCREEN (STL) ETHANOL [MASS/VOLU ME] IN URINE <10.0mg /dL 0 - 9 11/01 Specimen Type: URINE Comment: The cut-off value for Fentanyl was laboratory developed and its performance characteris tics confirmed by the [facility] laboratory thru method comparison with reference laboratory and medication chart review. The laboratory is regulated under CLIA as qualified to perform high-comple xity testing. Fentanyl is used for clinical purposes in conjunction with other laboratory tests. Ordering Provider: ROSALIE GONZALES Report Released Date/Time: Nov 01, 2024 09:09 AM Reporting Lab: [facility] [place] [address] Performing Lab: [facility] URINE DRUG SCREEN (STL) AMPHETAMIN E [PRESENCE] IN URINE BY SCREEN METHOD Negativ eng/mL 11/01 Specimen Type: URINE Comment: The cut-off value for Fentanyl was laboratory developed and its performance characteris tics confirmed by the [facility] laboratory thru method comparison with reference laboratory and medication chart review. The laboratory is regulated under CLIA as qualified to perform high-comple xity testing. Fentanyl is used for clinical purposes in conjunction with other laboratory tests. Ordering Provider: ROSALIE GONZALES Report Released Date/Time: Nov 01, 2024 09:09 AM Reporting Lab: [facility] [place] [address] Performing Lab: [facility] URINE DRUG SCREEN (STL) BENZOYLECG ONINE [PRESENCE] IN URINE Negativ eng/mL 11/01 Specimen Type: URINE Comment: The cut-off value for Fentanyl was laboratory developed and its performance characteris tics confirmed by the [facility] laboratory thru method comparison with reference laboratory and medication chart review. The laboratory is regulated under CLIA as qualified to perform high-comple xity testing. Fentanyl is used for clinical purposes in conjunction with other laboratory tests. Ordering Provider: ROSALIE GONZALES Report Released Date/Time: Nov 01, 2024 09:09 AM Reporting Lab: [facility] [place] [address] Performing Lab: [facility] URINE DRUG SCREEN (STL) BENZODIAZE PINES [PRESENCE] IN URINE BY SCREEN METHOD Negativ eng/mL 11/01 Specimen Type: URINE Comment: The cut-off value for Fentanyl was laboratory developed and its performance characteris tics confirmed by the [facility] laboratory thru method comparison with reference laboratory and medication chart review. The laboratory is regulated under CLIA as qualified to perform high-comple xity testing. Fentanyl is used for clinical purposes in conjunction with other laboratory tests. Ordering Provider: ROSALIE GONZALES Report Released Date/Time: Nov 01, 2024 09:09 AM Reporting Lab: [facility] [place] [address] Performing Lab: [facility] URINE DRUG SCREEN (STL) CANNABINOI DS [PRESENCE] IN URINE BY SCREEN METHOD Negativ eng/mL 11/01 Specimen Type: URINE Comment: The cut-off value for Fentanyl was laboratory developed and its performance characteris tics confirmed by the [facility] laboratory thru method comparison with reference laboratory and medication chart review. The laboratory is regulated under CLIA as qualified to perform high-comple xity testing. Fentanyl is used for clinical purposes in conjunction with other laboratory tests. Ordering Provider: ROSALIE GONZALES Report Released Date/Time: Nov 01, 2024 09:09 AM Reporting Lab: [facility] [place] [address] Performing Lab: [facility] URINE DRUG SCREEN (STL) METHADONE [PRESENCE] IN URINE Negativ eng/mL 11/01 Specimen Type: URINE Comment: The cut-off value for Fentanyl was laboratory developed and its performance characteris tics confirmed by the [facility] laboratory thru method comparison with reference laboratory and medication chart review. The laboratory is regulated under CLIA as qualified to perform high-comple xity testing. Fentanyl is used for clinical purposes in conjunction with other laboratory tests. Ordering Provider: ROSALIE GONZALES Report Released Date/Time: Nov 01, 2024 09:09 AM Reporting Lab: [facility] [place] [address] Performing Lab: [facility] [id number] [place] [address] URINE DRUG SCREEN (STL) OPIATES [PRESENCE] IN URINE BY SCREEN METHOD Negativ eng/mL 11/01 Specimen Type: URINE Comment: The cut-off value for Fentanyl was laboratory developed and its performance characteris tics confirmed by the [facility] laboratory thru method comparison with reference laboratory and medication chart review. The laboratory is regulated under CLIA as qualified to perform high-comple xity testing. Fentanyl is used for clinical purposes in conjunction with other laboratory tests. Ordering Provider: ROSALIE GONZALES Report Released Date/Time: Nov 01, 2024 09:09 AM Reporting Lab: [facility] [id number] Performing Lab: [facility] [id number] [place] [address] URINE DRUG SCREEN (STL) CREATININE [MASS/VOLU ME] IN URINE 145.6 mg/dL 63.0 - 166.0 11/01 Specimen Type: URINE Comment: The cut-off value for Fentanyl was laboratory developed and its performance characteris tics confirmed by the [facility] laboratory thru method comparison with reference laboratory and medication chart review. The laboratory is regulated under CLIA as qualified to perform high-comple xity testing. Fentanyl is used for clinical purposes in conjunction with other laboratory tests. Ordering Provider: ROSALIE GONZALES Report Released Date/Time: Nov 01, 2024 09:09 AM Reporting Lab: [facility] [id number] Performing Lab: [facility] [id number] URINE DRUG SCREEN (STL) OXYCODONE CUTOFF [MASS/VOLU ME] IN URINE FOR SCREEN METHOD Negativ eng/mL 11/01 Specimen Type: URINE Comment: The cut-off value for Fentanyl was laboratory developed and its performance characteris tics confirmed by the [facility] laboratory thru method comparison with reference laboratory and medication chart review. The laboratory is regulated under CLIA as qualified to perform high-comple xity testing. Fentanyl is used for clinical purposes in conjunction with other laboratory tests. Ordering Provider: ROSALIE GONZALES Report Released Date/Time: Nov 01, 2024 09:09 AM Reporting Lab: [facility] [place] [address] Performing Lab: [facility] URINE DRUG SCREEN (STL) BUPRENORPH INE [PRESENCE] IN URINE Negativ eng/mL 11/01 Specimen Type: URINE Comment: The cut-off value for Fentanyl was laboratory developed and its performance characteris tics confirmed by the [facility] laboratory thru method comparison with reference laboratory and medication chart review. The laboratory is regulated under CLIA as qualified to perform high-comple xity testing. Fentanyl is used for clinical purposes in conjunction with other laboratory tests. Ordering Provider: ROSALIE GONZALES Report Released Date/Time: Nov 01, 2024 09:09 AM Reporting Lab: [facility] [place] [address] Performing Lab: [facility] URINE DRUG SCREEN (STL) FENTANYL [PRESENCE] IN URINE Negativ eng/mL 11/01 Specimen Type: URINE Comment: The cut-off value for Fentanyl was laboratory developed and its performance characteris tics confirmed by the [facility] laboratory thru method comparison with reference laboratory and medication chart review. The laboratory is regulated under CLIA as qualified to perform high-comple xity testing. Fentanyl is used for clinical purposes in conjunction with other laboratory tests. Ordering Provider: ROSALIE GONZALES Report Released Date/Time: Nov 01, 2024 09:09 AM Reporting Lab: [facility] [place] [address] Performing Lab: [facility] [place] [address] URINALYSI S W/ CX REFLEX (STL-PB) COLOR OF URINE Yellow 11/01 Specimen Type: URINE No comment entered. Ordering Provider: ROSALIE GONZALES Report Released Date/Time: Nov 01, 2024 09:11 AM Reporting Lab: [facility] [place] [address] Performing Lab: [facility] DIVISION URINALYSI S W/ CX REFLEX (STL-PB) BILIRUBIN. TOTAL [PRESENCE] IN URINE BY TEST STRIP Negativ emg/dL 11/01 Specimen Type: URINE No comment entered. Ordering Provider: ROSALIE GONZALES Report Released Date/Time: Nov 01, 2024 09:11 AM Reporting Lab: [facility] [place] [address] Performing Lab: [facility] DIVISION URINALYSI S W/ CX REFLEX (STL-PB) PH OF URINE BY TEST STRIP 6.0 5.0 - 8.0 11/01 Specimen Type: URINE No comment entered. Ordering Provider: ROSALIE GONZALES Report Released Date/Time: Nov 01, 2024 09:11 AM Reporting Lab: [facility] [place] [address] Performing Lab: [facility] DIVISION URINALYSI S W/ CX REFLEX (STL-PB) LEUKOCYTES [#/AREA] IN URINE SEDIMENT BY MICROSCOPY HIGH POWER FIELD 1 /[HPF] 0 - 5 11/01 Specimen Type: URINE No comment entered. Ordering Provider: ROSALIE GONZALES Report Released Date/Time: Nov 01, 2024 09:11 AM Reporting Lab: [facility] [place] [address] Performing Lab: [facility] DIVISION URINALYSI S W/ CX REFLEX (STL-PB) ERYTHROCYT ES [#/VOLUME] IN URINE SEDIMENT BY MICROSCOPY HIGH POWER FIELD 1 /[HPF] 0 - 5 11/01 Specimen Type: URINE No comment entered. Ordering Provider: ROSALIE GONZALES Report Released Date/Time: Nov 01, 2024 09:11 AM Reporting Lab: [facility] [place] [address] Performing Lab: [facility] DIVISION URINALYSI S W/ CX REFLEX (STL-PB) APPEARANCE OF URINE Clear 11/01 Specimen Type: URINE No comment entered. Ordering Provider: ROSALIE GONZALES Report Released Date/Time: Nov 01, 2024 09:11 AM Reporting Lab: [facility] [place] [address] Performing Lab: [facility] DIVISION URINALYSI S W/ CX REFLEX (STL-PB) NITRITE [PRESENCE] IN URINE BY TEST STRIP Negativ emg/dL 11/01 Specimen Type: URINE No comment entered. Ordering Provider: ROSALIE GONZALES Report Released Date/Time: Nov 01, 2024 09:11 AM Reporting Lab: [facility] [place] [address] Performing Lab: [facility] DIVISION URINALYSI S W/ CX REFLEX (STL-PB) EPITHELIAL CELLS [#/AREA] IN URINE SEDIMENT BY MICROSCOPY LOW POWER FIELD <1/[HPF ] 0 - 5 11/01 Specimen Type: URINE No comment entered. Ordering Provider: ROSALIE GONZALES Report Released Date/Time: Nov 01, 2024 09:11 AM Reporting Lab: [facility] [place] [address] Performing Lab: [facility] DIVISION URINALYSI S W/ CX REFLEX (STL-PB) MUCUS [PRESENCE] IN URINE SEDIMENT BY LIGHT MICROSCOPY RARE/[L PF] 11/01 Specimen Type: URINE No comment entered. Ordering Provider: ROSALIE GONZALES Report Released Date/Time: Nov 01, 2024 09:11 AM Reporting Lab: [facility] [place] [address] Performing Lab: [facility] DIVISION URINALYSI S W/ CX REFLEX (STL-PB) GLUCOSE [MASS/VOLU ME] IN URINE BY TEST STRIP Normalm g/dL 11/01 Specimen Type: URINE No comment entered. Ordering Provider: ROSALIE GONZALES Report Released Date/Time: Nov 01, 2024 09:11 AM Reporting Lab: [facility] [place] [address] Performing Lab: [facility] DIVISION URINALYSI S W/ CX REFLEX (STL-PB) PROTEIN [MASS/VOLU ME] IN URINE BY TEST STRIP 20 mg/dL 11/01 H Specimen Type: URINE No comment entered. Ordering Provider: ROSALIE GONZALES Report Released Date/Time: Nov 01, 2024 09:11 AM Reporting Lab: [facility] [place] [address] Performing Lab: [facility] [place] [facility]ISION URINALYSI S W/ CX REFLEX (STL-PB) URN.UROBIL INOGEN Normalm g/dL 11/01 Specimen Type: URINE No comment entered. Ordering Provider: ROSALIE GONZALES Report Released Date/Time: Nov 01, 2024 09:11 AM Reporting Lab: [facility] [place] [address] Performing Lab: [facility] DIVISION URINALYSI S W/ CX REFLEX (STL-PB) HEMOGLOBIN [MASS/VOLU ME] IN URINE BY TEST STRIP Negativ emg/dL 11/01 Specimen Type: URINE No comment entered. Ordering Provider: ROSALIE GONZALES Report Released Date/Time: Nov 01, 2024 09:11 AM Reporting Lab: [facility] [place] [address] Performing Lab: [facility] DIVISION URINALYSI S W/ CX REFLEX (STL-PB) KETONES [MASS/VOLU ME] IN URINE BY TEST STRIP Negativ emg/dL 11/01 Specimen Type: URINE No comment entered. Ordering Provider: ROSALIE GONZALES Report Released Date/Time: Nov 01, 2024 09:11 AM Reporting Lab: [facility] [place] [address] Performing Lab: [facility] DIVISION URINALYSI S W/ CX REFLEX (STL-PB) URN.LEUK.E ST. Negativ emg/dL 11/01 Specimen Type: URINE No comment entered. Ordering Provider: ROSALIE GONZALES Report Released Date/Time: Nov 01, 2024 09:11 AM Reporting Lab: [facility] [place] [address] Performing Lab: [facility] DIVISION URINALYSI S W/ CX REFLEX (STL-PB) SPECIFIC GRAVITY OF URINE 1.026 11/01 Specimen Type: URINE No comment entered. Ordering Provider: ROSALIE GONZALES Report Released Date/Time: Nov 01, 2024 09:11 AM Reporting Lab: [facility] [place] [address] Performing Lab: [facility] DIVISION B12 COBALAMIN (VITAMIN B12) [MASS/VOLU ME] IN SERUM OR PLASMA 704 pg/mL 213 - 816 11/01 Specimen Type: SERUM No comment entered. Ordering Provider: ROSALIE GONZALES Report Released Date/Time: Nov 01, 2024 08:15 AM Reporting Lab: [facility] [place] [address] Performing Lab: [facility] DIVISION LIPID PANEL (STL) CHOLESTERO L [MASS/VOLU ME] IN SERUM OR PLASMA 165 mg/dL 0 - 200 11/01 Specimen Type: PLASMA Comment: No hemolysis noted. Ordering Provider: ROSALIE GONZALES Report Released Date/Time: Nov 01, 2024 08:15 AM Reporting Lab: [facility] [place] [address] Performing Lab: [facility] DIVISION LIPID PANEL (STL) TRIGLYCERI DE [MASS/VOLU ME] IN SERUM OR PLASMA 95 mg/dL 0 - 150 11/01 Specimen Type: PLASMA Comment: No hemolysis noted. Ordering Provider: ROSALIE GONZALES Report Released Date/Time: Nov 01, 2024 08:15 AM Reporting Lab: [facility] [place] [address] Performing Lab: [facility] DIVISION LIPID PANEL (STL) CHOLESTERO L IN LDL [MASS/VOLU ME] IN SERUM OR PLASMA BY CALCULATIO N 103 mg/dL 11/01 Specimen Type: PLASMA Comment: No hemolysis noted. Ordering Provider: ROSALIE GONZALES Report Released Date/Time: Nov 01, 2024 08:15 AM Reporting Lab: [facility] [place] [address] Performing Lab: [facility] LIPID PANEL (STL) CHOLESTERO L IN HDL [MASS/VOLU ME] IN SERUM OR PLASMA 43 mg/dL 40 11/01 Specimen Type: PLASMA Comment: No hemolysis noted. Ordering Provider: ROSALIE GONZALES Report Released Date/Time: Nov 01, 2024 08:15 AM Reporting Lab: [facility] [place] [address] Performing Lab: [facility] DIVISION HGA1C HEMOGLOBIN A1C/HEMOGL OBIN.TOTAL IN BLOOD 6.7 4.0 - 6.0 11/01 H Specimen Type: BLOOD No comment entered. Ordering Provider: ROSALIE GONZALES Report Released Date/Time: Nov 01, 2024 08:15 AM Reporting Lab: [facility] [place] [address] Performing Lab: [facility] DIVISION TSH W/ REFLEX FT4 (STL) THYROTROPI N [UNITS/VOL UME] IN SERUM OR PLASMA 5.332 u[IU]/m L 0.470 - 5.000 11/01 H Specimen Type: PLASMA No comment entered. Ordering Provider: ROSALIE GONZALES Report Released Date/Time: Nov 01, 2024 08:15 AM Reporting Lab: [facility] [place] [address] Performing Lab: [facility] DIVISION TSH W/ REFLEX FT4 (STL) FREE T4(REFLEX) 1.17 ng/mL 0.70 - 1.48 11/01 Specimen Type: PLASMA No comment entered. Ordering Provider: ROSALIE GONZALES Report Released Date/Time: Nov 01, 2024 08:15 AM Reporting Lab: [facility] [place] [address] Performing Lab: [facility] DIVISION COMPREHEN SIVE METABOLIC PANEL CREATININE [MASS/VOLU ME] IN SERUM OR PLASMA 1.26 mg/dL 0.70 - 1.30 11/01 Specimen Type: PLASMA Comment: No hemolysis noted. Ordering Provider: ROSALIE GONZALES Report Released Date/Time: Nov 01, 2024 08:15 AM Reporting Lab: [facility] [place] [address] Performing Lab: [facility] DIVISION COMPREHEN SIVE METABOLIC PANEL UREA NITROGEN [MASS/VOLU ME] IN SERUM OR PLASMA 26.9 mg/dL 9.0 - 25.0 11/01 H Specimen Type: PLASMA Comment: No hemolysis noted. Ordering Provider: ROSALIE GONZALES Report Released Date/Time: Nov 01, 2024 08:15 AM Reporting Lab: [facility] [address] Performing Lab: [facility] DIVISION COMPREHEN SIVE METABOLIC PANEL GLUCOSE [MASS/VOLU ME] IN SERUM OR PLASMA 122 mg/dL 72 - 99 11/01 H Specimen Type: PLASMA Comment: No hemolysis noted. Ordering Provider: ROSALIE GONZALES Report Released Date/Time: Nov 01, 2024 08:15 AM Reporting Lab: [facility] [place] [address] Performing Lab: [facility] DIVISION COMPREHEN SIVE METABOLIC PANEL SODIUM [MOLES/VOL UME] IN SERUM OR PLASMA 138 meq/L 136 - 145 11/01 Specimen Type: PLASMA Comment: No hemolysis noted. Ordering Provider: ROSALIE GONZALES Report Released Date/Time: Nov 01, 2024 08:15 AM Reporting Lab: [facility] [place] [address] Performing Lab: [facility] DIVISION COMPREHEN SIVE METABOLIC PANEL POTASSIUM [MOLES/VOL UME] IN SERUM OR PLASMA 4.6 meq/L 3.5 - 5.0 11/01 Specimen Type: PLASMA Comment: No hemolysis noted. Ordering Provider: ROSALIE GONZALES Report Released Date/Time: Nov 01, 2024 08:15 AM Reporting Lab: [facility] [place] [address] Performing Lab: [facility] DIVISION COMPREHEN SIVE METABOLIC PANEL CHLORIDE [MOLES/VOL UME] IN SERUM OR PLASMA 105 meq/L 98 - 107 11/01 Specimen Type: PLASMA Comment: No hemolysis noted. Ordering Provider: ROSALIE GONZALES Report Released Date/Time: Nov 01, 2024 08:15 AM Reporting Lab: [facility] [place] [address] Performing Lab: [facility] DIVISION COMPREHEN SIVE METABOLIC PANEL CARBON DIOXIDE, TOTAL [MOLES/VOL UME] IN SERUM OR PLASMA 24 meq/L 22 - 31 11/01 Specimen Type: PLASMA Comment: No hemolysis noted. Ordering Provider: ROSALIE GONZALES Report Released Date/Time: Nov 01, 2024 08:15 AM Reporting Lab: [facility] [place] [address] Performing Lab: [facility] DIVISION COMPREHEN SIVE METABOLIC PANEL CALCIUM [MASS/VOLU ME] IN SERUM OR PLASMA 9.7 mg/dL 8.4 - 10.4 11/01 Specimen Type: PLASMA Comment: No hemolysis noted. Ordering Provider: ROSALIE GONZALES Report Released Date/Time: Nov 01, 2024 08:15 AM Reporting Lab: [facility] [place] [address] Performing Lab: [facility] DIVISION COMPREHEN SIVE METABOLIC PANEL PROTEIN [MASS/VOLU ME] IN SERUM OR PLASMA 7.4 g/dL 6.0 - 8.6 11/01 Specimen Type: PLASMA Comment: No hemolysis noted. Ordering Provider: ROSALIE GONZALES Report Released Date/Time: Nov 01, 2024 08:15 AM Reporting Lab: [facility] [place] [address] Performing Lab: [facility] DIVISION COMPREHEN SIVE METABOLIC PANEL ALBUMIN [MASS/VOLU ME] IN SERUM OR PLASMA 4.4 g/dL 3.4 - 5.0 11/01 Specimen Type: PLASMA Comment: No hemolysis noted. Ordering Provider: ROSALIE GONZALES Report Released Date/Time: Nov 01, 2024 08:15 AM Reporting Lab: [facility] [place] [address] Performing Lab: [facility] DIVISION COMPREHEN SIVE METABOLIC PANEL BILIRUBIN. TOTAL [MASS/VOLU ME] IN SERUM OR PLASMA 0.9 mg/dL 0.2 - 1.2 11/01 Specimen Type: PLASMA Comment: No hemolysis noted. Ordering Provider: ROSALIE GONZALES Report Released Date/Time: Nov 01, 2024 08:15 AM Reporting Lab: [facility] [place] [address] Performing Lab: [facility] DIVISION COMPREHEN SIVE METABOLIC PANEL ALKALINE PHOSPHATAS E [ENZYMATIC ACTIVITY/V OLUME] IN SERUM OR PLASMA 57 U/L 40 - 150 11/01 Specimen Type: PLASMA Comment: No hemolysis noted. Ordering Provider: ROSALIE GONZALES Report Released Date/Time: Nov 01, 2024 08:15 AM Reporting Lab: [facility] [place] [address] Performing Lab: [facility] DIVISION COMPREHEN SIVE METABOLIC PANEL ASPARTATE AMINOTRANS FERASE [ENZYMATIC ACTIVITY/V OLUME] IN SERUM OR PLASMA 20 U/L 5 - 34 11/01 Specimen Type: PLASMA Comment: No hemolysis noted. Ordering Provider: ROSALIE GONZALES Report Released Date/Time: Nov 01, 2024 08:15 AM Reporting Lab: [facility] [place] [address] Performing Lab: [facility] DIVISION COMPREHEN SIVE METABOLIC PANEL ALANINE AMINOTRANS FERASE [ENZYMATIC ACTIVITY/V OLUME] IN SERUM OR PLASMA 20 U/L 8 - 40 11/01 Specimen Type: PLASMA Comment: No hemolysis noted. Ordering Provider: ROSALIE GONZALES Report Released Date/Time: Nov 01, 2024 08:15 AM Reporting Lab: [facility] [place] [address] Performing Lab: [facility] DIVISION COMPREHEN SIVE METABOLIC PANEL GLOMERULAR FILTRATION RATE/1.73 SQ M.PREDICTE D [VOLUME RATE/AREA] IN SERUM, PLASMA OR BLOOD BY CREATININE -BASED FORMULA (CKD-EPI 2020) 57.66 60 11/01 Specimen Type: PLASMA Comment: No hemolysis noted. Ordering Provider: ROSALIE GONZALES Report Released Date/Time: Nov 01, 2024 08:15 AM Reporting Lab: [facility] [place] [address] Performing Lab: [facility] DIVISION CBC LEUKOCYTES [#/VOLUME] IN BLOOD BY AUTOMATED COUNT 7.8 10*3/uL 3.6 - 11.2 11/01 Specimen Type: BLOOD No comment entered. Ordering Provider: ROSALIE GONZALES Report Released Date/Time: Nov 01, 2024 08:15 AM Reporting Lab: [facility] [place] [address] Performing Lab: [facility] DIVISION CBC ERYTHROCYT ES [#/VOLUME] IN BLOOD BY AUTOMATED COUNT 4.48 10*6/uL 4.10 - 5.70 11/01 Specimen Type: BLOOD No comment entered. Ordering Provider: ROSALIE GONZALES Report Released Date/Time: Nov 01, 2024 08:15 AM Reporting Lab: [facility] [place] [address] Performing Lab: [facility] CBC HEMOGLOBIN [MASS/VOLU ME] IN BLOOD 15.2 g/dL 13.1 - 16.8 11/01 Specimen Type: BLOOD No comment entered. Ordering Provider: ROSALIE GONZALES Report Released Date/Time: Nov 01, 2024 08:15 AM Reporting Lab: [facility] [place] [address] Performing Lab: [facility] CBC HEMATOCRIT [VOLUME FRACTION] OF BLOOD 44.0 38.2 - 48.4 11/01 Specimen Type: BLOOD No comment entered. Ordering Provider: ROSALIE GONZALES Report Released Date/Time: Nov 01, 2024 08:15 AM Reporting Lab: [facility] [place] [address] Performing Lab: [facility] DIVISION CBC MCV [ENTITIC VOLUME] BY AUTOMATED COUNT 98.2 fL 80.0 - 100.0 11/01 Specimen Type: BLOOD No comment entered. Ordering Provider: ROSALIE GONZALES Report Released Date/Time: Nov 01, 2024 08:15 AM Reporting Lab: [facility] [place] [address] Performing Lab: [facility] CBC MCH [ENTITIC MASS] BY AUTOMATED COUNT 33.9 pg 27.0 - 34.0 11/01 Specimen Type: BLOOD No comment entered. Ordering Provider: ROSALIE GONZALES Report Released Date/Time: Nov 01, 2024 08:15 AM Reporting Lab: [facility] [place] [address] Performing Lab: [facility] DIVISION CBC MCHC [MASS/VOLU ME] BY AUTOMATED COUNT 34.5 g/dL 33.0 - 36.0 11/01 Specimen Type: BLOOD No comment entered. Ordering Provider: ROSALIE GONZALES Report Released Date/Time: Nov 01, 2024 08:15 AM Reporting Lab: [facility] [place] [address] Performing Lab: [facility] [address] [address] DIVISION CBC PLATELETS [#/VOLUME] IN BLOOD BY AUTOMATED COUNT 173 10*3/uL 150 - 400 11/01 Specimen Type: BLOOD No comment entered. Ordering Provider: ROSALIE GONZALES Report Released Date/Time: Nov 01, 2024 08:15 AM Reporting Lab: [facility] [place] [address] Performing Lab: [facility] DIVISION CBC PLATELET MEAN VOLUME [ENTITIC VOLUME] IN BLOOD BY AUTOMATED COUNT 10.0 fL 7.5 - 11.2 11/01 Specimen Type: BLOOD No comment entered. Ordering Provider: ROSALIE GONZALES Report Released Date/Time: Nov 01, 2024 08:15 AM Reporting Lab: [facility] [place] [address] Performing Lab: [facility] DIVISION CBC ERYTHROCYT E DISTRIBUTI ON WIDTH [RATIO] BY AUTOMATED COUNT 12.9 11.8 - 15.1 11/01 Specimen Type: BLOOD No comment entered. Ordering Provider: ROSALIE GONZALES Report Released Date/Time: Nov 01, 2024 08:15 AM Reporting Lab: [facility] [place] [address] Performing Lab: [facility] DIVISION CBC LYMPHOCYTE S/100 LEUKOCYTES IN BLOOD BY AUTOMATED COUNT 17 11/01 Specimen Type: BLOOD No comment entered. Ordering Provider: ROSALIE GONZALES Report Released Date/Time: Nov 01, 2024 08:15 AM Reporting Lab: [facility] [place] [address] Performing Lab: [facility] DIVISION CBC MONOCYTES/ 100 LEUKOCYTES IN BLOOD BY AUTOMATED COUNT 9 11/01 Specimen Type: BLOOD No comment entered. Ordering Provider: ROSALIE GONZALES Report Released Date/Time: Nov 01, 2024 08:15 AM Reporting Lab: [facility] [place] [address] Performing Lab: [facility] DIVISION CBC NEUTROPHIL S/100 LEUKOCYTES IN BLOOD BY AUTOMATED COUNT 72 11/01 Specimen Type: BLOOD No comment entered. Ordering Provider: ROSALIE GONZALES Report Released Date/Time: Nov 01, 2024 08:15 AM Reporting Lab: [facility] [place] [address] Performing Lab: [facility] DIVISION CBC EOSINOPHIL S/100 LEUKOCYTES IN BLOOD BY AUTOMATED COUNT 1 11/01 Specimen Type: BLOOD No comment entered. Ordering Provider: ROSALIE GONZALES Report Released Date/Time: Nov 01, 2024 08:15 AM Reporting Lab: [facility] [place] [address] Performing Lab: [facility] DIVISION CBC BASOPHILS/ 100 LEUKOCYTES IN BLOOD BY AUTOMATED COUNT 1 11/01 Specimen Type: BLOOD No comment entered. Ordering Provider: ROSALIE GONZALES Report Released Date/Time: Nov 01, 2024 08:15 AM Reporting Lab: [facility] [place] [address] Performing Lab: [facility] DIVISION CBC LYMPHOCYTE S [#/VOLUME] IN BLOOD BY AUTOMATED COUNT 1.33 10*3/uL 0.77 - 4.50 11/01 Specimen Type: BLOOD No comment entered. Ordering Provider: ROSALIE GONZALES Report Released Date/Time: Nov 01, 2024 08:15 AM Reporting Lab: [facility] [place] [address] Performing Lab: [facility] DIVISION CBC MONOCYTES [#/VOLUME] IN BLOOD BY AUTOMATED COUNT 0.69 10*3/uL 0.19 - 0.80 11/01 Specimen Type: BLOOD No comment entered. Ordering Provider: ROSALIE GONZALES Report Released Date/Time: Nov 01, 2024 08:15 AM Reporting Lab: [facility] [place] [address] Performing Lab: [facility] DIVISION CBC NEUTROPHIL S [#/VOLUME] IN BLOOD BY AUTOMATED COUNT 5.65 10*3/uL 2.10 - 8.00 11/01 Specimen Type: BLOOD No comment entered. Ordering Provider: ROSALIE GONZALES Report Released Date/Time: Nov 01, 2024 08:15 AM Reporting Lab: [facility] [place] [address] Performing Lab: [facility] DIVISION CBC EOSINOPHIL S [#/VOLUME] IN BLOOD BY AUTOMATED COUNT 0.09 10*3/uL 0.00 - 0.60 11/01 Specimen Type: BLOOD No comment entered. Ordering Provider: ROSALIE GONZALES Report Released Date/Time: Nov 01, 2024 08:15 AM Reporting Lab: [facility] [place] [address] Performing Lab: [facility] DIVISION CBC BASOPHILS [#/VOLUME] IN BLOOD BY AUTOMATED COUNT 0.04 10*3/uL 0.00 - 0.20 11/01 Specimen Type: BLOOD No comment entered. Ordering Provider: ROSALIE GONZALES Report Released Date/Time: Nov 01, 2024 08:15 AM Reporting Lab: [facility] [place] [address] Performing Lab: [facility] DIVISION HGA1C HEMOGLOBIN A1C/HEMOGL OBIN.TOTAL IN BLOOD 6.4 4.0 - 6.0 05/03 H Specimen Type: BLOOD No comment entered. Ordering Provider: ROSALIE GONZALES Report Released Date/Time: May 03, 2024 08:38 AM Reporting Lab: [facility] [place] [address] Performing Lab: [facility] DIVISION LIPID PANEL (STL) CHOLESTERO L [MASS/VOLU ME] IN SERUM OR PLASMA 165 mg/dL 0 - 200 05/03 Specimen Type: PLASMA Comment: No hemolysis noted. Ordering Provider: ROSALIE GONZALES Report Released Date/Time: May 03, 2024 08:38 AM Reporting Lab: [facility] [place] [address] Performing Lab: [facility] LIPID PANEL (STL) TRIGLYCERI DE [MASS/VOLU ME] IN SERUM OR PLASMA 151 mg/dL 0 - 150 05/03 H Specimen Type: PLASMA Comment: No hemolysis noted. Ordering Provider: ROSALIE GONZALES Report Released Date/Time: May 03, 2024 08:38 AM Reporting Lab: [facility] [place] [address] Performing Lab: [facility] LIPID PANEL (STL) CHOLESTERO L IN LDL [MASS/VOLU ME] IN SERUM OR PLASMA BY CALCULATIO N 92 mg/dL 05/03 Specimen Type: PLASMA Comment: No hemolysis noted. Ordering Provider: ROSALIE GONZALES Report Released Date/Time: May 03, 2024 08:38 AM Reporting Lab: [facility] [place] [address] Performing Lab: [facility] LIPID PANEL (STL) CHOLESTERO L IN HDL [MASS/VOLU ME] IN SERUM OR PLASMA 43 mg/dL 40 05/03 Specimen Type: PLASMA Comment: No hemolysis noted. Ordering Provider: ROSALIE GONZALES Report Released Date/Time: May 03, 2024 08:38 AM Reporting Lab: [facility] [place] [address] Performing Lab: [facility] MEHREEN FLETCHER [facility] [id number] [facility] Vital Signs Combined list of inpatient and outpatient Vital Signs from Department of Defense and Veterans Affairs, ranging from 12 months to all on record, depending upon the facility. Vital Sign Value Date Comments Source SYSTOLIC BLOOD PRESSURE 133 01/05/2025 08:02:01 [facility] DIASTOLIC BLOOD PRESSURE 68 01/05/2025 08:02:01 [facility] PULSE OXIMETRY 99 01/05/2025 08:02:01 S Paulette TAPIA [facility] WEIGHT 187 01/05/2025 08:02:01 [facility] BMI 28 kg/m2 01/05/2025 08:02:01 [facility] PAIN 7 01/05/2025 08:02:01 [facility] HEIGHT 69 01/05/2025 08:02:01 [facility] TEMPERATURE 97 01/05/2025 08:02:01 [facility] PULSE 60 01/05/2025 08:02:01 [facility] RESPIRATION 16 01/05/2025 08:02:01 [facility] SYSTOLIC BLOOD PRESSURE 127 11/10/2024 07:57:34 [facility] DIASTOLIC BLOOD PRESSURE 67 11/10/2024 07:57:34 [facility] PULSE OXIMETRY 98 11/10/2024 07:57:34 S Paulette TAPIA [facility] DIV[facility] WEIGHT 187 11/10/2024 07:57:34 [facility] DIV[facility] BMI 28 kg/m2 11/10/2024 07:57:34 [facility] PAIN 0 11/10/2024 07:57:34 [facility] HEIGHT 69 11/10/2024 07:57:34 [facility] TEMPERATURE 97.2 11/10/2024 07:57:34 [facility] PULSE 58 11/10/2024 07:57:34 [facility] Tiffany [facility] RESPIRATION 20 11/10/2024 07:57:34 [facility] SYSTOLIC BLOOD PRESSURE 99 11/01/2024 08:17:39 [facility] DIASTOLIC BLOOD PRESSURE 56 11/01/2024 08:17:39 [facility] PULSE OXIMETRY 98 11/01/2024 08:17:39 [facility] PAIN 0 11/01/2024 08:17:39 [facility] TEMPERATURE 97.8 11/01/2024 08:17:39 [facility] PULSE 64 11/01/2024 08:17:39 [facility] RESPIRATION 20 11/01/2024 08:17:39 [facility] SYSTOLIC BLOOD PRESSURE 135 10/06/2024 09:18:01 [facility] DIASTOLIC BLOOD PRESSURE 77 10/06/2024 09:18:01 [facility] PULSE OXIMETRY 97 10/06/2024 09:18:01 [facility] WEIGHT 189.3 10/06/2024 09:18:01 [facility] BMI 28 kg/m2 10/06/2024 09:18:01 [facility] PAIN 5 10/06/2024 09:18:01 [facility] HEIGHT 69 10/06/2024 09:18:01 [facility] TEMPERATURE 97.2 10/06/2024 09:18:01 [facility] PULSE 57 10/06/2024 09:18:01 [facility] RESPIRATION 18 10/06/2024 09:18:01 [facility] SYSTOLIC BLOOD PRESSURE 130 05/03/2024 08:18:02 [facility] DIASTOLIC BLOOD PRESSURE 62 05/03/2024 08:18:02 [facility] PULSE OXIMETRY 97 05/03/2024 08:18:02 [facility] WEIGHT 186.4 05/03/2024 08:18:02 [facility] BMI 28 kg/m2 05/03/2024 08:18:02 [facility] PAIN 6 05/03/2024 08:18:02 [facility] TEMPERATURE 97.7 05/03/2024 08:18:02 [facility] PULSE 54 05/03/2024 08:18:02 [facility] RESPIRATION 18 05/03/2024 08:18:02 [facility] Encounters Combined list of: 1) Encounters from Department of [facility] Affairs facilities going backup to the last 18 months, not all [place] inpatient encounters are included; 2) Encounters from the Department of [facility] facilities going backup to 280 months. 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, right eye, with macular edema BERNARDINO TODD 10/07 [facility] Outpatient Encounter [id number] Debra DEXTER [facility] HEARING AID REPAIR/MOD IFYING [id number] [id number] Diagnos is: ICD-10- CM H90.3 Sensori neural hearing loss, bilater al YUE JACOB S E 10/19 [facility] Outpatient Encounter [id number] CALVIN CAVANAUGH 10/22 [facility] Outpatient Encounter [id number] 10/28 [facility] DIVISION OFFICE O/P EST MOD 30 MIN 77995-6.65 [id number] Diagnos is: ICD-10- CM E11.9 Type 2 diabete s mellitu s 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 DIONTE COSTA J 10/29 [facility] DIVISION OFFICE O/P EST LOW 20 MIN [id number] [id number] Diagnos is: ICD-10- CM E11.9 Type 2 diabete s mellitu s 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 LAMINE MOREAU E 11/03 [facility] DIVISION OFFICE O/P EST HI 40 MIN [id number] [id number] Diagnos is: ICD-10- CM 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, right eye, with macular edema ASHER CUI 11/23 [facility] SENSORY INTEGRATIO N [id number] [id number] Diagnos is: ICD-10- CM H54.3 Unquali fied visual loss, both eyes ZAN HEAD 11/23 [facility] DIVISION CPTR OPHTH DX IMG POST SEGMT [id number] [id number] Diagnos is: ICD-10- CM 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, right eye, with macular edema Debra BOURGEOIS S 12/08 [facility] COMPRE OPH EXAM EST PT 1/ 61234-5.65 [id number] Diagnos is: ICD-10- CM H34.811 0 Central retinal vein occls, right eye, with macular edema BERNARDINO TODD 12/08 [facility] ORTHOTIC MGMT&TRAIN G 1ST ENC [id number] [id number] Diagnos is: ICD-10- CM Z46.89 Encount er for fitting and adjustm ent of oth devices NESSA GARCIA J 12/13 [facility] CASE MGMT-ORAL HEALTH LIT [id number] [id number] Diagnos is: ICD-10- CM K03.6 Deposit s [accret ions] on teeth DUTTON,CAT HY 01/04 [facility] Outpatient Encounter [id number] 01/11 [facility] Outpatient Encounter [id number] JASSON,CA ROLE S 01/12 [facility] Outpatient Encounter [id number] 01/18 [facility] Outpatient Encounter [id number] 02/07 [facility] CPTR OPHTH DX IMG POST SEGMT [id number] [id number] Diagnos is: ICD-10- CM H34.811 0 Central retinal vein occls, right eye, with macular edema Debra BOURGEOIS S 03/02 [facility] DIVISION OFFICE O/P EST LOW 20 MIN [id number] [id number] Diagnos is: ICD-10- CM H34.811 0 Central retinal vein occls, right eye, with macular edema TAMERA BROUSSARD 03/02 [facility] 30 [id number] [id number] Diagnos is: ICD-10- CM H54.3 Unquali fied visual loss, both eyes IDALMIS GANA 03/02 [facility] DIVISION OFFICE O/P EST HI 40 MIN [id number] [id number] Diagnos is: ICD-10- CM 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, right eye, with macular edema CUIASHER ANTONIO R 04/26 [facility] DIVISION SENSORY INTEGRATIO N 07772-3.65 [id number] Diagnos is: ICD-10- CM H54.511 A Low vision right eye categor y 1, normal vision left eye ZAN HEAD L 04/26 [facility] DIVISION CPTR OPHTH DX IMG POST SEGMT [id number] [id number] Diagnos is: ICD-10- CM H34.811 0 Central retinal vein occls, right eye, with macular edema LAMINE WING 04/27 [facility] DIVISION AFLIBERCEP T INJECTION [id number] [id number] Diagnos is: ICD-10- CM 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, right eye, with macular edema ANDRE ROSALES 04/27 [facility] MULTI DEN INSERT CUSTOM MOLD [id number] [id number] Diagnos is: ICD-10- CM E11.40 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, unsp PHILIPPE,I AN R 04/29 [facility] O/P EST MOD 30 MIN [id number] [id number] Diagnos is: ICD-10- CM E11.42 Type 2 diabete s mellitu s with diabeti c polyneu ropathy DIONTE COSTA J 05/03 [facility] COMPRESSIO N STOCKING [id number] [id number] [id number] Diagnos is: ICD-10- CM 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.0 Lymphed allegra, not elsewhe re classif ied PHILIPPE,I AN R 05/03 [facility] IMM[facility] ON ADMIN [id number] [id number] DANIELA GONZALESE 05/03 [facility] OFF[facility] O/P EST LOW 20 MIN [id number] [id number] Diagnos is: ICD-10- CM H02.831 Dermato chalasi s of right upper eyelid LIBERTY MAHARAJ INE 06/02 [facility] PT EVAL LOW COMPLEX 20 MIN [id number] [id number] Diagnos is: ICD-10- CM M79.606 Pain in leg, unspeci fied JEANNINE RENTERIA E 06/07 [facility] IMMUNIZATI ON ADMIN [id number] [id number] Diagnos is: ICD-10- CM Z23 Encount er for immuniz GENE Couch 06/07 [facility] OFFICE O/P EST LOW 20 MIN 31870-2.65 [id number] Diagnos is: ICD-10- CM L71.8 Other rosacea BLAS,AB BY RR 06/21 [facility] DIVISION THERAPEUTI C EXERCISES 35560-9.65 [id number] Diagnos is: ICD-10- CM M25.559 Pain in unspeci fied hip DEXTER,JEANNINE E 06/24 [facility] COMPRE OPH EXAM EST PT 1/> 12576-3.65 [id number] Diagnos is: ICD-10- CM H35.81 Retinal edema ANDRE ROSALES 06/29 [facility] CPTR OPHTH DX IMG POST SEGMT 44955-2.65 [id number] Diagnos is: ICD-10- CM 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, right eye, with macular edema Debra BOURGEOIS S 06/29 [facility] DIVISION THERAPEUTI C EXERCISES 54778-4.65 [id number] Diagnos is: ICD-10- CM M79.606 Pain in leg, unspeci fied DEXTER,JEANNINE E 07/08 [facility] DIVISION THERAPEUTI C EXERCISES 71244-0.65 [id number] Diagnos is: ICD-10- CM M79.606 Pain in leg, unspeci fied DEXTER,JEANNINE E 07/20 [facility] Outpatient Encounter [id number] [id number] 07/26 [facility] THERAPEUTI C EXERCISES [id number] [id number] Diagnos is: ICD-10- CM M79.606 Pain in leg, unspeci fied ALANIS MCKEON A 08/09 [facility] THERAPEUTI C EXERCISES 46007-2.65 [id number] Diagnos is: ICD-10- CM M79.606 Pain in leg, unspeci fied JEANNINE RENTERIA E 08/30 [facility] INTRM OPH EXAM EST PATIENT [id number] [id number] Diagnos is: ICD-10- CM 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, right eye, with macular edema ANDRE ROSALES A 08/31 [facility] CPTRZ OPH DX IMG PST SGM RTA [id number] [id number] Diagnos is: ICD-10- CM H35.81 Retinal edema Debra BOURGEOIS INDRA S 08/31 [facility] Outpatient Encounter [id number] [id number] 09/06 [facility] Outpatient Encounter [id number] [id number] 09/07 [facility] Outpatient Encounter [id number] [id number] JASSON,CA ROLE S 09/08 [facility] SYNCH AUDIO-ONLY EST MOD 30 [id number] [id number] Diagnos is: ICD-10- CM M25.551 Pain in right hip DIONTE COSTA 09/08 [facility] Outpatient Encounter [id number] [id number] 10/06 [facility] OFF/OP CNSLTJ NEW/EST LOW 30 [id number] [id number] Diagnos is: ICD-10- CM M25.551 Pain in right hip PARDEEP COOMBS R 10/06 [facility] Outpatient Encounter [id number] [id number] 10/06 [facility] Outpatient Encounter [id number] [id number] 10/08 [facility] Outpatient Encounter [id number] [id number] Diagnos is: ICD-10- CM 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 RENATO AMES IE S 10/11 [facility] OFFICE O/P EST MOD 30 MIN [id number] [id number] Diagnos is: ICD-10- CM K80.20 Calculu s of gallbla dder w/o cholecy stitis w/o obstruc tiJOSE L Betts T 10/12 [facility] Outpatient Encounter [id number] [id number] 10/17 [facility] CPTRZ OPH DX IMG PST SGM RTA [id number] [id number] Diagnos is: ICD-10- CM 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, bilater al, interme d dry stage LAMINE WING 10/26 [facility] INTRM OPH EXAM EST PATIENT [id number] [id number] Diagnos is: ICD-10- CM H34.811 0 Central retinal vein occls, right eye, with macular edema Debra GIRALDO G 10/26 [facility] Outpatient Encounter [id number] [id number] 10/26 [facility] OFFICE O/P EST MOD 30 MIN [id number] [id number] Diagnos is: ICD-10- CM Z95.1 Presenc e of aortoco ronary bypass graft DIONTE COSTA J 11/01 [facility] DIVISION OFFICE O/P NEW LOW 30 MIN 34671-9.65 [id number] Diagnos is: ICD-10- CM L72.3 Sebaceo us cyst Clayton HOLLIDAY ANE E 11/10 [facility] Outpatient Encounter [id number] [id number] 11/11 [facility] CPTRZ OPH DX IMG PST SGM RTA 93087-4.65 [id number] 1 Diagnos is: ICD-10- CM H34.811 0 Central retinal vein occls, right eye, with macular edema LAMINE WING 12/28 [facility] INTRM OPH EXAM EST PATIENT [id number] [id number] Diagnos is: ICD-10- CM 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 , left hip PARDEEP COOMBS R 01/05 [facility] Outpatient Encounter [id number] [id number] 01/13 [facility] Outpatient Encounter [id number] [id number] 01/30 [facility] Outpatient Encounter [id number] [id number] 02/20 [facility] Outpatient Encounter [id number] [id number] 02/20 [facility] CPTRZ OPH DX IMG PST SGM RTA [id number] [id number] Diagnos is: ICD-10- CM 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, right eye, with macular edema LAMINE WING 02/22 [facility] DIVISION OFFICE O/P EST MOD 30 MIN 71579-4.65 [id number] Diagnos is: ICD-10- CM H34.811 0 Central retinal vein occls, right eye, with macular edema TAMERA BROUSSARD 02/22 [facility] Out[facility] Encounter [id number] [id number] 02/22 [facility] OFF[facility] O/P EST HI 40 MIN [id number] Diagnos is: ICD-10- CM 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, right eye, with macular edema ASHER CUI R 02/23 [facility] MNGMENT TRAINING [id number] Diagnos is: ICD-10- CM H54.511 A Low vision right eye categor y 1, normal vision left eye KIM AMAYA 02/23 [facility] Outpatient Encounter [id number] 03/13 [facility] MTMS BY PHARM EST 15 MIN [id number] Diagnos is: ICD-10- CM Z51.81 Encount er for therape utic drug level monitor REYNALDO Neves 03/17 [facility] Social History Combined list of available smoking, tobacco, and other social history from [facility] Defense and [facility] facilities. Social History Type Response Date Comment Sourc e Tobacco smoking status CAIS VA-TOBACCO NEVER USED 05/03/2024 [facility] History of tobacco use OR-TOBACCO NEVER USED 05/01/2023 [facility] History of tobacco use VA-TOBACCO NEVER USED 04/28/2022 [facility]2020 [facility] History of tobacco use VATOBACCO NEVER USED 02/28/2019 [facility] History of tobacco use LIFETIME NON-USER OF TOBACCO 05/06/2017 [facility] History of tobacco use LIFETIME NON-USER OF TOBACCO 06/11/2016 [facility] History of tobacco use LIFETIME NON-USER OF TOBACCO 07/31/2015 [facility] History of tobacco use QUIT TOBACCO >7 Y EARS AGO 09/18/2014 [facility] History of tobacco use LIFETIME NON-USER OF TOBACCO 11/22/2013 [facility] History of tobacco use LIFETIME NON-USER OF TOBACCO 02/03/2013 [facility] History of tobacco use LIFETIME NON-USER OF TOBACCO 06/05/2010 [facility] Plan of Care List of future care activities from [facility] Affairs facilities. Additional future care activities may be listed in the Assessment and Plan section. Date/Time Care Activity Care Activity Detail Facili ty 03/30/2025 AMBULATORY - SURGERY AMBULATORY - SURGERY [facility] Advance Directives List of completed, amended, or rescinded Advance Directives on record at [facility] Affairs facilities. An actual copy of the Directive is not included. Date Advance Directive Provider Source 10/25/[address] [facility]
[2025-03-26 07:16] VITALS: BP 138/59; PULSE 56; RESP 14; O2SAT 95
--- NOTE | 2025-03-26 07:16 | ED.BACK ---
HPI - Back Pain/Injury General Chief Complaint: Back Pain/Injury Stated Complaint: lower back pain Time Seen by Provider: 03/26/25 07:15 Source: patient History of Present Illness HPI Narrative: Patient is 79 years old white male lives alone came to the ED from home with his daughter by private car complaining of right flank pain started 1 and have week ago, sharp, stabbing, worse with any movement, better laying still. He denies any fever, chills, nausea, vomiting or radiation of pain. Patient denies any trauma or recent new physical activities. History of diabetes hypertension hyperlipidemia CABG currently on blood thinner. He does not smoke or drink or use drugs. Patient was told that he have gallstone in the cystic duct 6 months ago and surgery cannot be done because of his age Related Data Home Medications ?Medication ?Instructions ?Recorded ?Confirmed ?Last Taken ?Type metformin 1,000 mg tablet 1,000 mg PO DAILY 08/15/19 03/24/25 Unknown History xgomqxgywghd-tilpeeez-apqxkg tablet 1 tablet PO DAILY 08/15/19 03/24/25 Unknown History omega-3 fatty acids 1,000 mg 1,000 mg PO DAILY 08/15/19 03/24/25 Unknown History capsule (Fish Oil Concentrate) rivaroxaban 20 mg tablet (Xarelto) 20 mg PO 1700 08/15/19 03/24/25 Unknown History tamsulosin 0.4 mg capsule 0.4 mg PO DAILY 08/15/19 03/24/25 Unknown History tramadol 50 mg tablet 50 mg PO Q6H PRN Pain 08/15/19 03/24/25 Unknown History gabapentin 300 mg capsule 300 mg PO QID 08/14/20 03/24/25 Unknown History vitamin B complex (B 1 tablet PO DAILY 02/13/21 03/24/25 Unknown History Complex-Vitamin B12 tablet) acetaminophen 500 mg capsule 500 mg PO Q12H PRN Muscle Pain 11/04/21 03/24/25 Unknown History amlodipine 10 mg tablet 10 mg PO DAILY 06/09/23 03/24/25 Unknown History Allergies Allergy/AdvReac Type Severity Reaction Status Date / Time No Known Allergies Allergy Verified 03/26/25 07:29 Review of Systems Review of Systems: All systems reviewed & are unremarkable except as noted in HPI and below PMFSH Past Medical History Medical History BMI 27.0-27.9,adult CAD (coronary artery disease) Testicular hyperfunction GERD (gastroesophageal reflux disease) Afib Diabetes BPH (benign prostatic hyperplasia) Dyslipidemia Essential hypertension Surgical History Surgical History History of coronary artery stent placement History of coronary artery bypass graft Family History Family History Mother Heart attack Father Heart attack Sibling No problems noted. Sibling Heart disease Cancer Acute myocardial infarction Social History Social History Smoking status: Never smoker Second hand tobacco smoke exposure: No Alcohol intake: never Substance use: never Substance use type: does not use Do You Feel Safe in your Home?: Yes Lack of Transportation: No Lack of Food: Never True Current Housing: I Have Housing Concerned About Future Housing: No Difficulty Paying Gas/Electric Bills: No Difficulty Paying for Meds: No Currently Unemployed: No Education: High School Diploma/GED Difficulty w/ Childcare or Family Care: No Living arrangements: alone Occupation/Education: retired 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 Musculoskeletal: Normal range of motion, nontender back Neurologic: Alert and oriented ?3, [employer] is normal as tested, no gross motor deficit Course Vital Signs Vital signs: Vital Signs Pulse Rate 56 L 03/26/25 07:16 Respiratory Rate 14 03/26/25 07:16 Blood Pressure 138/59 L 03/26/25 07:16 Pulse Oximetry 95 03/26/25 07:16 Temperature 36.4 C 03/26/25 07:26 Pulse Rate 62 03/26/25 08:08 Respiratory Rate 16 03/26/25 08:08 Blood Pressure 134/83 03/26/25 08:08 Pulse Oximetry 100 03/26/25 08:08 Oxygen Delivery Room Air 03/26/25 07:26 MDM - Back Pain/Injury MDM Narrative Medical decision making narrative: patient presents with her right flank tenderness and pain Vital signs are stable Physical examination consistent with bjou-jl-maxpjzgm tenderness right flank otherwise within normal limit Differential diagnosis musculoskeletal, kidney stone, pyelonephritis, cholecystitis Blood workup today includes CBC, CMP, lipase showed WBC 10.2, otherwise within normal limit CT abdomen and pelvis with IV contrast showed cholelithiasis, hepatic steatosis Urinalysis showed evidence of urinary tract infection Diagnosis muscular pain, urinary tract infection, cholelithiasis, hepatic steatosis Discharged on Cipro the pt was discharged to home.the pt,s condition upon discharge was fair,education was provided to the pt in reference to the final impression,discharge study results,treatment,prognosis and need for follow up . Differential Diagnosis Differential diagnosis: Likely other ( as above) Medical Records Attestation: I reviewed the patient's medical records. Lab Data Attestation: I reviewed the patient's lab results. 03/26/25 07:47 03/26/25 08:00 Labs: Lab Results 03/26/25 03/26/25 Range/Units 07:47 08:00 WBC 10.2 H (4.5-10.0) K/mm3 RBC 4.28 L (4.6-6.20) M/mm3 Hgb 14.2 (14.0-18.0) g/dL Hct 42.2 (42.0-52.0) % MCV 98.6 (80-100) fl MCH 33.2 (26-34) pg MCHC 33.6 (32-36) g/dl RDW 13.3 (11.5-14.5) % Plt Count 166 (150-375) k/mm3 MPV 9.7 (7.4-10.4) fl Immature Gran % (Auto) 0.4 (0-0.5) % Neut % (Auto) 80.7 H (45.5-73.1) % Lymph % (Auto) 8.1 L (18.3-44.2) % [place] % (Auto) 9.8 H (2.6-8.5) % Eos % (Auto) 0.6 (0-4.4) % Baso % (Auto) 0.4 (0.2-1.2) % Lymph # (Auto) 0.82 L (0.9-3.2) K/mm3 [place] # (Auto) 1.0 H (0.1-0.6) K/mm3 Eos # (Auto) 0.1 (0-0.3) K/mm3 Baso # (Auto) 0.0 (0.0-0.1) K/mm3 Abs Immat Gran (auto) 0.04 H (0.00-0.031) K/mm3 Absolute Neuts (auto) 8.2 H (1.3-6.7) K/mm3 Absolute Nucleated RBC 0.000 (0.0-0.012) K/mm3 Nucleated RBC % 0.0 (0.0-0.2) % Sodium 138 (137-145) mmol/L Potassium 4.4 (3.4-5.0) mmol/L Chloride 105 (98-107) mmol/L Carbon Dioxide 25 (22-30) mmol/L Anion Gap 8 (4-12) mmol/L BUN 17 (9-20) mg/dL Creatinine 1.10 1.20 (0.7-1.3) mg/dL Estim Creat Clear Calc 48 44 ml/min Estimated GFR > 60 58 L (59 - ) Glucose 148 H (65-110) mg/dL Calcium 9.4 (8.4-10.2) mg/dL Total Bilirubin 1.1 (0.2-1.3) mg/dL AST 28 (17-59) U/L ALT 25 (6-50) U/L Alkaline Phosphatase 57 (38-126) U/L Total Protein 7.5 (6.3-8.2) g/dL Albumin 4.4 (3.5-5.1) g/dL Lipase 133 (23-300) U/L Urine Color Yellow (Yellow) Urine Appearance Clear (Clear) Urine pH 5.5 (5.0-9.0) Ur Specific [place] 1.019 (1.001-1.035) Urine Protein Negative (Negative) mg/dL Urine Glucose (UA) Negative (Negative) mg/dL Urine Ketones Negative (Negative) mg/dL Ur Blood (Man) Negative (Negative) Urine Nitrate Negative (Negative) Urine Bilirubin Negative (Negative) Urine Urobilinogen 0.2 (<2.0) mg/dL Leukocyte Esterase Rfl 1+ H (Negative) [place]/UL Urine RBC 0-2 (0-2) /hpf Urine WBC 11-20 H (0-3) /hpf Ur Squamous Epith Cells None seen (Few) /hpf Urine Bacteria None seen /hpf Urine Casts 0-2 Imaging Data Radiologist's impression: Impressions Chest X-Ray 03/26/25 08:01 Impression: Clear lungs. Stable cardiomegaly, status post CABG. Abdomen/Pelvis CT 03/26/25 08:13 Impression: Cholelithiasis. Diffuse hepatic steatosis. Subcentimeter pulmonary nodules, as above, unchanged as compared to prior chest CT dated 01/08/2022. Critical Care Time Critical Care Time Critical Care Time: No Discharge Plan Discharge Clinical Impression: Abdominal wall pain in right flank, Urinary tract infection, Cholelithiasis, Fatty liver Patient Disposition: Home Condition: Stable Instructions: Antibiotic Form, Gallstones (ED), Urinary Tract Infection in Men (ED), Non-Alcoholic Fatty Liver Disease (ED), Flank Pain (ED) Additional Instructions: Return if symptoms are worsening , call your family physician for appointment, take Tylenol as as needed for aches and pain, continue home medications. Patient Language: Lao Prescriptions: New ciprofloxacin HCl [Cipro] 500 mg tablet 500 mg PO Q12H Qty: 14 0RF No Action gabapentin 300 mg capsule 300 mg PO QID amlodipine 10 mg tablet 10 mg PO DAILY Contour Next Test Strips Strip See Rx Instructions .ROUTE .COMPLEX Qty: 100 1RF Dose Instruction: USE DIRECTED TO TEST BLOOD SUGAR ONCE DAILY Rx Instructions: USE DIRECTED TO TEST BLOOD SUGAR ONCE DAILY albuterol sulfate 90 mcg/actuation HFA aerosol inhaler 1 puff INHALATION Q4H PRN (Reason: shortness of breath or wheezing) Qty: 8.5 2RF omeprazole 40 mg capsule,delayed release(DR/EC) 20 mg PO DAILY Qty: 30 0RF metformin 1,000 mg tablet 1,000 mg PO DAILY tramadol 50 mg tablet 50 mg PO Q6H PRN (Reason: Pain) Xarelto 20 mg tablet 20 mg PO 1700 tamsulosin 0.4 mg capsule 0.4 mg PO DAILY omega-3 fatty acids [Fish Oil Concentrate] 1,000 mg capsule 1,000 mg PO DAILY [id number] Tablet 1 tablet PO DAILY vitamin B complex [B Complex-Vitamin B12] Tablet 1 tablet PO DAILY acetaminophen 500 mg capsule 500 mg PO Q12H PRN (Reason: Muscle Pain) clopidogrel 75 mg tablet 75 mg PO QAM 90 Days Qty: 90 1RF metoprolol tartrate 25 mg tablet 25 mg PO Q12HR 90 Days Qty: 180 1RF (DME) lancets [Ultra Fine Lancets] 30 gauge misc See Rx Instructions .ROUTE .MEDSUPPLY Qty: 100 0RF Rx Instructions: As directed test blood sugar once daily (DME) lancing device Misc See Rx Instructions .ROUTE .MEDSUPPLY Qty: 1 0RF Rx Instructions: As directed fluticasone propionate [Allergy Relief (fluticasone)] 50 mcg/actuation spray,suspension 2 spray NASAL DAILY Qty: 16 2RF levothyroxine 50 mcg tablet 50 mcg PO DAILY Qty: 90 1RF Follow-up/Referrals: Gerardo Avalos DO [Primary Care Provider] -
[2025-03-26 07:26] VITALS: BP 131/68; PULSE 68; RESP 15; TEMP 36.4; O2SAT 98
--- OUTSIDE RECORDS SUMMARY | 2025-03-26 07:35 | XMS_ITS | Continuity of Care Document ---
Author Name [facility] Organization [facility] Care Team Providers Care Biblical Studies Professor Name Role Phone [facility] Unavailable Unavailable Problems Combined list of problems from Department of Defense and Veterans Affairs facilities. It does not include entries that were removed or entered in error. Problem Status Onset Date Problem Type Date of Resolution Comments Source History of deep vein thrombosis Active 08/10/19 15 Condition [facility] Acne rosacea Active Condition [facility] Altitudinal hemianopia Active Condition [facility] Benign prostatic hyperplasia Active Condition [facility] Cataracts Active Condition [facility] Central scotoma Active Condition [facility] Cholelithiasis Active Condition Nov 082021 Entered By: YOMI ABARCA Comment: Seen on abd CT 07/01/21 [facility] Cholelithiasis without obstruction Active Condition [facility] Depressive disorder Active Condition [facility] Diabetes mellitus type 2 Active Condition [facility] Dyspnea Active Condition [facility] Erectile dysfunction Active Condition [facility] Essential hypertension Active Condition [facility] Exposure to potentially hazardous substance Active Condition [facility] Gastroesophageal reflux disease Active Condition [facility] Generalized anxiety disorder Active Condition [facility] Herpes simplex Active Condition [facility] History of branch retinal vein occlusion Active Condition Oct 13, 2017 Entered By: MIGDALIA TORREZ Comment: Madhu retinal vein occlusion with macular edema OD 10/13/17 [facility] History of coronary artery bypass grafting Active Condition Jun 06, 2021 Entered By: YOMI ABARCA Comment: 5v 1994. PTCA x 3 1997 [facility] Hyperlipidemia Active Condition [facility] Hypogonadism Active Condition [facility] Hypothyroidism Active Condition [facility] Insomnia Active Condition [facility] Lack of exercise Active Condition [facility] Long-term current use of anticoagulant (SNOMED CT [id number]) Active Condition [facility] Low back pain Active Condition [facility] Lymphedema Active Condition [facility] Megaloblastic anemia due to vitamin B>12< deficiency Active Condition Jun 06, 2021 Entered By: YOMI ABARCA Comment: History. Patient on supplementatio n. [facility] Multiple pulmonary nodules Active Condition Jul 01, 2021 Entered By: ANDREW WINTERS Comment: 06/2021: Ct of abd/pelvis without contarst showed solid 7 mm LLL pulmonary nodule and 5 mm LLL pulmonary nodule. Recommended to have dedicated CT chest.Nov 21, 2021 Entered By: YOMI ABARCA Comment: -LLL nodule measuring 7 mm was noted on chest CT 07/25/22---rep eat pending to be scheduled for 02/2022. [facility] Obstructive sleep apnea Active Condition [facility] Occlusion of branch of retinal vein of right eye Active Condition [facility] Optic atrophy Active Condition [facility] Pain in right foot Active Condition [facility] Peripheral neuropathy due to type 2 diabetes mellitus Active Condition [facility] Pseudophakia Active Condition [facility] Sensorineural hearing loss, bilateral Active Condition [facility] Acute Venous Embolism and Thrombosis of unspecified Deep Vessels of lower Extrem Inactive Condition 06/06/2021 [facility] Altitudinal hemianopia (SNOMED CT 643930275) Inactive Condition 06/06/2021 [facility] Anxiety disorder Inactive Condition 06/06/2021 [facility] Atrophy, Optic Inactive Condition 06/06/2021 [facility] Cataract, Combined Inactive Condition 06/06/2021 [facility] Central scotoma (ICD-9-CM 368.41) Inactive Condition 06/06/2021 [facility] Encounter for Therapeutic Drug Monitoring (ICD-9-CM V58.83) Inactive Condition 06/06/2021 [facility] Generalized Anxiety Disorder * (ICD-9-CM 300.02) Inactive Condition 06/06/2021 [facility] Hearing Loss, Sensorineural, Unspecified Inactive Condition 06/06/2021 [facility] Herpes Inactive Condition 06/06/2021 [facility] HTN Inactive Condition 06/06/2021 [facility] Hypertension Inactive Condition 06/06/2021 [facility] INSOMNIA, unspecified Inactive Condition 06/06/2021 [facility] Obstructive sleep apnea of adult (SNOMED CT 6731215544416) Inactive Condition 11/21/2021 [facility] Other B-complex deficiencies (ICD-9-CM 266.2) Inactive Condition 06/06/2021 [facility] Polyneuropathy Inactive Condition 11/21/2021 [facility] Postsurgical Aortocoronary Bypass Status Inactive Condition 06/06/2021 Jun 05, 2010 Entered By: AMBER COSTA Comment: 5v 2009 Entered By: AMBER COSAT Comment: PTCA x3 1997 [facility] Pseudophakia Inactive Condition 06/06/2021 [facility] Unresolved Inactive Condition 11/21/2021 [facility] Venous thrombosis (SNOMED CT 007283300) Inactive Condition 06/06/2021 Aug 07, 2010 Entered By: AMBER COSTA Comment: RLE ORIGINALLY Dx'd 4YRS AGO [facility] Diagnosis: ICD-10-CM Z51.81 Encounter for therapeutic drug level monitoring Active Diagnosis [facility] Diagnosis: ICD-10-CM H54.511A Low vision right eye category 1, normal vision left eye Active Diagnosis [facility] Diagnosis: ICD-10-CM H34.8310 Trib rtnl vein occlusion, right eye, with macular edema Active Diagnosis [facility] Diagnosis: ICD-10-CM H34.8110 Central retinal vein occls, right eye, with macular edema Active Diagnosis [facility] Diagnosis: ICD-10-CM M16.12 Unilateral primary osteoarthritis, left hip Active Diagnosis [facility] Diagnosis: ICD-10-CM Z01.20 Encounter for dental exam and cleaning w/o abnormal findings Active Diagnosis [facility] Diagnosis: ICD-10-CM K03.6 Deposits [accretions] on teeth Active Diagnosis [facility] Diagnosis: ICD-10-CM L72.3 Sebaceous cyst Active Diagnosis [facility] Diagnosis: ICD-10-CM Z95.1 Presence of aortocoronary bypass graft Active Diagnosis [facility] Diagnosis: ICD-10-CM H35.3132 Nexdtve age-related mclr degn, bilateral, intermed dry stage Active Diagnosis [facility] Diagnosis: ICD-10-CM K80.20 Calculus of gallbladder w/o cholecystitis w/o obstruction Active Diagnosis [facility] Diagnosis: ICD-10-CM I25.83 Coronary atherosclerosis due to lipid rich plaque Active Diagnosis [facility] Diagnosis: ICD-10-CM M25.551 Pain in right hip Active Diagnosis [facility] Diagnosis: ICD-10-CM H35.81 Retinal edema Active Diagnosis [facility] Diagnosis: ICD-10-CM M79.606 Pain in leg, unspecified Active Diagnosis [facility] Diagnosis: ICD-10-CM M25.559 Pain in unspecified hip Active Diagnosis [facility] Diagnosis: ICD-10-CM L71.8 Other rosacea Active Diagnosis [facility] Diagnosis: ICD-10-CM Z23 Encounter for immunization Active Diagnosis [facility] Diagnosis: ICD-10-CM H02.831 Dermatochalasis of right upper eyelid Active Diagnosis [facility] Diagnosis: ICD-10-CM I89.0 Lymphedema, not elsewhere classified Active Diagnosis [facility] Diagnosis: ICD-10-CM E11.42 Type 2 diabetes mellitus with diabetic polyneuropathy Active Diagnosis [facility] Diagnosis: ICD-10-CM E11.40 Type 2 diabetes mellitus with diabetic neuropathy, unsp Active Diagnosis [facility] Diagnosis: ICD-10-CM H54.3 Unqualified visual loss, both eyes Active Diagnosis [facility] Diagnosis: ICD-10-CM Z46.89 Encounter for fitting and adjustment of oth devices Active Diagnosis [facility] Diagnosis: ICD-10-CM E11.9 Type 2 diabetes mellitus without complications Active Diagnosis [facility] Diagnosis: ICD-10-CM H90.3 Sensorineural hearing loss, bilateral Active Diagnosis [facility] Medications Combined list of outpatient medications from Department of Defense and [facility] facilities.Medications provided include 1) outpatient medications from the last 15 months, and 2) patient-reported medications. Medication Details Route Status Patient Instructions Prescription Expires Prescription Number Last Dispense Date Ordering Provider Order Date Order Qty Source ACYCLOVIR 200MG CAP TAKE ONE CAPSULE BY MOUTH FIVE TIMES A DAY FOR VIRAL INFECTIO N ORAL DISCONT INUED 03/10/2024 [id number] CROW COSTA 2022 450 [facility] ACYCLOVIR 200MG CAP TAKE ONE CAPSULE BY MOUTH FIVE TIMES A DAY FOR VIRAL INFECTIO N ORAL 01/28/2025 [id number] 5 CROW COSTA 2023 450 [facility] AMIODARONE HCL (PACERONE) 200MG TAB TAKE ONE TABLET BY MOUTH ONCE A DAY ORAL ACTIVE AMELIA LAGUNA 2021 [facility] AMLODIPINE BESYLATE 10MG TAB TAKE ONE TABLET BY MOUTH ONCE A DAY FOR HIGH BLOOD PRESSURE ORAL ACTIVE 10/07/2025 [id number] 5 LOCOME ELVI ANN PENA 2024 90 [facility] AMLODIPINE BESYLATE 10MG TAB TAKE ONE TABLET BY MOUTH ONCE A DAY FOR HIGH BLOOD PRESSURE ORAL DISCONT INUED 07/05/2024 [id number] 4 Jacquelyn SPAULDING S 2023 90 [facility] CARBOXYMETH YLCELLULOSE NA 0.5% SOLN,OPH INSTILL 2 DROPS IN BOTH EYES FOUR TIMES A DAY NEEDED FOR DRY EYES OPHTHA LMIC DISCONT INUED 08/28/2024 [id number] 4 [facility] M[facility]UEL MARSH NICOLE 2023 15 [facility] CARBOXYMETH YLCELLULOSE NA 0.5% SOLN,OPH INSTILL 2 DROPS IN BOTH EYES FOUR TIMES A DAY NEEDED FOR DRY EYES OPHTHA LMIC 08/28/2024 [id number] 5 [facility]UEL GOOD ALA NICOLE 2023 30 [facility] CLOPIDOGREL BISULFATE 75MG TAB TAKE ONE TABLET BY MOUTH ONCE A DAY TO THIN BLOOD ORAL ACTIVE 04/15/2025 [id number] 5 CROW COSTA 2023 90 [facility] CLOPIDOGREL BISULFATE 75MG TAB TAKE ONE TABLET BY MOUTH ONCE A DAY TO THIN BLOOD ORAL DISCONT INUED 03/10/2024 [id number] 4 CROW COSTA 2022 90 [facility] DOCUSATE NA 100MG CAP TAKE ONE CAPSULE BY MOUTH TWICE DAILY NEEDED TO SOFTEN STOOL. HOLD FOR LOOSE STOOL/DI ARRHEA. ORAL ACTIVE 05/04/2025 [id number] 4 PHAMME YAMILE ANN PENA 2023 200 [facility] DOCUSATE NA 100MG CAP TAKE ONE CAPSULE BY MOUTH TWICE DAILY NEEDED TO SOFTEN STOOL. HOLD FOR LOOSE STOOL/DI ARRHEA. ORAL DISCONT INUED 03/10/2024 [id number] 4 CROW COSTA 2022 200 [facility] DORZOLAMIDE HCL 22.3MG/MCKENNA LOL MALEATE 6.8MG/ML SOLN,OPH INSTILL 1 DROP IN BOTH EYES TWICE A DAY FOR GLAUCOMA OPHTHA LMIC ACTIVE 04/27/2025 [id number] 5 MAGY CUI R 2023 10 [facility] DORZOLAMIDE HCL 22.3MG/MCKENNA LOL MALEATE 6.8MG/ML SOLN,OPH INSTILL 1 DROP IN BOTH EYES TWICE A DAY FOR GLAUCOMA OPHTHA LMIC DISCONT INUED 03/10/2024 [id number] 4 CROW COSTA 2022 10 [facility] FLUTICASONE PROPIONATE 50MCG/SPRAY SOLN,NASAL, 16GM INSTILL 2 SPRAYS IN NOSTRIL( S) ONCE A DAY (MUST BE USED DIRECTED FOR MINIMUM OF 21 DAYS TO PROVIDE ADEQUATE BENEFITS ) NASAL ACTIVE 05/04/2025 [id number] ME ANN GONZALES 2023 1 [facility] GABAPENTIN 300MG CAP TAKE TWO CAPSULES BY MOUTH THREE TIMES A DAY FOR PAIN ORAL ACTIVE 09/07/2025 [id number] 5 ME ANN GONZALES 2024 540 [facility] GABAPENTIN 300MG CAP TAKE TWO CAPSULES BY MOUTH THREE TIMES A DAY FOR PAIN ORAL DISCONT INUED 05/27/2024 [id number] 4 Daisha HERNANDEZ 2022 540 [facility] LEVOTHYROXI NE NA 50MCG TAB (SYNTHROID) TAKE ONE TABLET BY MOUTH EVERY MORNING BEFORE A MEAL ORAL ACTIVE CROW COSTA 2018 [facility] LIDOCAINE 5% OINT,TOP APPLY SPARINGL Y TO AFFECTED AREA(S) THREE TIMES A DAY NEEDED APPLIED TO FEET FOR PAIN TOPICA L ACTIVE 05/04/2025 [id number] 5 ME ANN GONZALES 2023 70 [facility] LIDOCAINE 5% PATCH APPLY 1 PATCH TO SKIN SITE ONCE A DAY NEEDED APPLY PATCH AND PRESS FIRMLY FOR 10-15 SECONDS. KEEP ON FOR 12 HOURS THEN REMOVE PATCH FOR 12 HOURS. TRANSD ERMAL 02/28/2024 [id number] 4 CROW COSTA 2022 30 [facility] LOSARTAN POTASSIUM 100MG TAB TAKE ONE-HALF TABLET BY MOUTH ONCE A DAY TO LOWER BLOOD PRESSURE ORAL ACTIVE 05/04/2025 [id number] 5 CROW COSTA 2023 45 [facility] LOSARTAN POTASSIUM 100MG TAB TAKE ONE-HALF TABLET BY MOUTH ONCE A DAY TO LOWER BLOOD PRESSURE ORAL DISCONT INUED 03/10/2024 [id number] 4 CROW COSTA 2022 45 [facility] METFORMIN HCL 1000MG TAB TAKE ONE-HALF TABLET BY MOUTH TWICE A DAY WITH MEALS FOR BLOOD SUGAR CONTROL. TAKE WITH FOOD. AVOID ALCOHOL. DISCONTI NUE BEFORE GETTING XRAY DYE. ORAL ACTIVE 05/04/2025 [id number] 5 LOCOME ANN BOLESE 2023 90 [facility] N METFORMIN HCL 1000MG TAB TAKE ONE-HALF TABLET BY MOUTH TWICE A DAY WITH MEALS FOR BLOOD SUGAR CONTROL. TAKE WITH FOOD. AVOID ALCOHOL. DISCONTI NUE BEFORE GETTING XRAY DYE. ORAL DISCONT INUED 03/10/2024 [id number] 4 CROW COSTA 2022 90 [facility] Ruiz METOPROLOL TARTRATE 100MG TAB TAKE ONE-HALF TABLET BY MOUTH TWICE A DAY FOR HIGH BLOOD PRESSURE TAKE WITH OR IMMEDIAT ALEKSANDR FOLLOWIN G FOOD. ORAL ACTIVE 11/02/2025 [id number] 5 ME ANN GONZALESE 2024 90 [facility] N METOPROLOL TARTRATE 100MG TAB TAKE ONE-HALF TABLET BY MOUTH TWICE A DAY FOR HIGH BLOOD PRESSURE TAKE WITH OR IMMEDIAT ALEKSANDR FOLLOWIN G FOOD. ORAL DISCONT INUED 10/23/2024 [id number] 5 CROW COSTA 2023 90 [facility] METRONIDAZO LE 0.75% CREAM,TOP APPLY LIBERALL Y TO AFFECTED AREA(S) ONCE A DAY FOR ROSACEA (TOPICAL USE ONLY) TOPICA L ACTIVE 06/22/2025 [id number] SHARRON SCOTT S 2023 45 [facility] METRONIDAZO LE 0.75% CREAM,TOP APPLY LIGHTLY TO AFFECTED AREA(S) TWICE A DAY FOR INFECTIO N. FOR TOPICAL USE ONLY. TO FACE TOPICA L 06/15/2024 [id number] 4 SILVANA CORDERO 2022 45 [facility] N MULTIVIT/OP HTH AREDS2/LUTE IN/ZEAXANTH IN CAP/TAB TAKE 1 CAP/TAB BY MOUTH TWICE A DAY WITH MEAL(S) FOR EYE HEALTH AVOID IF YOU HAVE PEANUT ALLERGY. ORAL ACTIVE 10/27/2025 [id number] CORINNE GIRALDO 2024 120 [facility] MULTIVIT/OP HTH AREDS2/LUTE IN/ZEAXANTH IN CAP/TAB TAKE 1 CAP/TAB BY MOUTH TWICE A DAY WITH MEAL(S) FOR EYE HEALTH AVOID IF YOU HAVE PEANUT ALLERGY. ORAL DISCONT INUED 04/27/2025 [id number] MAGY CUI 2023 120 [facility] MULTIVITAMI N/MINERALS ANTIOXIDANT CAP/TAB TAKE ONE TABLET BY MOUTH ONCE A DAY ORAL ACTIVE CROW COSTA 2012 [facility] N OMEPRAZOLE 20MG CAP,EC TAKE ONE CAPSULE BY MOUTH EVERY MORNING FOR GASTROES OPHAGEAL REFLUX DISEASE 30 MINUTES BEFORE MEAL ORAL ACTIVE 05/04/2025 [id number] 5 ME ANN GONZALES BECKY 2023 90 [facility] N POLYVINYL ALCOHOL 1.4% SOLN,OPH INSTILL 1 DROP IN BOTH EYES FOUR TIMES A DAY NEEDED FOR DRY EYE(S) OPHTHA LMIC ACTIVE 02/23/2026 [id number] 5 NINFA WHITE N 2024 15 [facility] POLYVINYL ALCOHOL 1.4% SOLN,OPH INSTILL 1 DROP IN BOTH EYES FOUR TIMES A DAY NEEDED FOR DRY EYE(S) OPHTHA LMIC DISCONT INUED 01/14/2026 [id number] 2024 15 [facility] PRAVASTATIN NA 40MG TAB TAKE ONE TABLET BY MOUTH EVERY EVENING TO LOWER CHOLESTE ROL (REPORT ANY MUSCLE PAIN OR WEAKNESS ) ORAL ACTIVE 11/02/2025 [id number] ME ANN GONZALES 2024 90 [facility] PRAVASTATIN NA 40MG TAB TAKE ONE-HALF TABLET BY MOUTH EVERY EVENING FOR HIGH CHOLESTE ROL TO LOWER CHOLESTE ROL (REPORT ANY MUSCLE PAIN OR WEAKNESS ) ORAL DISCONT INUED (EDIT) 05/04/2025 [id number] 5 ME ANN GONZALES 2023 45 [facility] PRAVASTATIN NA 40MG TAB TAKE ONE-HALF TABLET BY MOUTH EVERY EVENING FOR HIGH CHOLESTE ROL TO LOWER CHOLESTE ROL (REPORT ANY MUSCLE PAIN OR WEAKNESS ) ORAL DISCONT INUED 05/01/2024 [id number] Daisha HERNANDEZ 2023 45 [facility] N RIVAROXABAN 20MG TAB TAKE ONE TABLET BY MOUTH ONCE A DAY TO THIN BLOOD. TAKE WITH FOOD. ORAL SUSPEND ED 03/18/2026 [id number] 5 SA BRANDEN POLOE 2024 90 [facility] N RIVAROXABAN 20MG TAB TAKE ONE TABLET BY MOUTH ONCE A DAY TO THIN BLOOD. TAKE WITH FOOD. ORAL DISCONT INUED 05/04/2025 [id number] 5 PHAMYAMILEME ANN GARVINE 2023 90 [facility] N RIVAROXABAN 20MG TAB TAKE ONE TABLET BY MOUTH ONCE A DAY TO THIN BLOOD. TAKE WITH FOOD. ORAL DISCONT INUED 06/02/2024 [id number] SA BRANDEN POOLE 2022 90 [facility] SILDENAFIL CITRATE 100MG TAB TAKE ONE-HALF TABLET BY MOUTH EVERY WEEK NEEDED FOR ERECTILE DYSFUNCT ION (TAKE 60 MINUTES PRIOR TO SEXUAL ACTIVITY ) - LIMIT 6 DOSES PER 30 DAYS ORAL ACTIVE 08/17/2025 [id number] 5 MADDISON NUNEZ 2024 9 [facility] N TAMSULOSIN HCL 0.4MG CAP TAKE ONE CAPSULE BY MOUTH EVERY EVENING APPROXIM ATELY 30 MINUTES AFTER THE SAME MEAL EACH DAY (FOR PROSTATE ) ORAL ACTIVE 02/20/2026 [id number] 5 CROW COSTA 2024 90 [facility] N TAMSULOSIN HCL 0.4MG CAP TAKE ONE CAPSULE BY MOUTH EVERY EVENING APPROXIM ATELY 30 MINUTES AFTER THE SAME MEAL EACH DAY (FOR PROSTATE ) ORAL DISCONT INUED 07/04/2025 [id number] 5 CROW COSTA 2024 90 [facility] N TAMSULOSIN HCL 0.4MG CAP TAKE ONE CAPSULE BY MOUTH EVERY EVENING APPROXIM ATELY 30 MINUTES AFTER THE SAME MEAL EACH DAY (FOR PROSTATE ) ORAL DISCONT INUED 04/05/2025 [id number] 4 CROW COSTA 2023 90 [facility] N TAMSULOSIN HCL 0.4MG CAP TAKE ONE CAPSULE BY MOUTH EVERY EVENING APPROXIM ATELY 30 MINUTES AFTER THE SAME MEAL EACH DAY (FOR PROSTATE ) ORAL DISCONT INUED 03/10/2024 [id number] CROW COSTA 2023 90 [facility] N TRAMADOL HCL 50MG TAB TAKE 1 TABLET BY MOUTH FOUR TIMES A DAY NEEDED FOR PAIN ORAL 02/16/2025 [id number] 5 CROW COSTA 2024 90 [facility] Ruiz TRAMADOL HCL 50MG TAB TAKE 1 TABLET BY MOUTH FOUR TIMES A DAY NEEDED FOR PAIN ORAL 07/03/2024 [id number] 4 CROW COSTA 2023 90 [facility] N VITAMIN B COMPLEX CAP TAKE 2 CAPSULES BY MOUTH EVERY MORNING FOR VITAMIN SUPPLEME NTATION. ORAL ACTIVE 10/04/2025 [id number] 5 CROW COSTA 2024 200 [facility] N VITAMIN B COMPLEX CAP TAKE 2 CAPSULES BY MOUTH EVERY MORNING FOR VITAMIN SUPPLEME NTATION. ORAL DISCONT INUED 10/23/2024 [id number] 4 CROW COSTA 2023 200 [facility] Allergies, Adverse Reactions, Alerts Combined list of allergies from Department of Defense and Veterans Affairs facilities. It does not include entries that were removed or entered in error. Substance Category Reaction Severity Reaction type Status Date Reported Comments Source SIMVASTATIN Propensity to adverse reactions to drug (finding) active 0 [facility] Immunizations Combined list of available immunizations from the Department of Defense and Veterans Affairs facilities. Immunization Series Date Given Administered By Site Reaction Lot Number CVX Code Drug School Principal Status Comments Source INFLUENZA, HIGH-DOSE, TRIVALENT, PF 2023 OPAL AVINA LEFT DELTO ID [id number] 135 complet ed Completed Series, [facility] RSV, BIVALENT, PROTEIN SUBUNIT RSVPREF, DILUENT RECONSTITUTED , 0.5 ML, PF 2023 JORGE LUIS SPAULDING RIGHT DELTO ID [id number] 305 complet ed Completed Series, ADMINISTE [facility] AT [facility] N TDAP 2023 JORGE LUIS SPAULDING LEFT DELTO ID [id number] 115 complet ed Booster for Series, [facility]MIN[facility]E [facility] AT [facility] N INFLUENZA, HIGH-DOSE, QUADRIVALENT 2022 RONNI LARIOS RIGHT DELTO ID [id number] 197 complet ed Completed Series, ADMINISTE [facility] AT [facility] N INFLUENZA VACCINE, QUADRIVALENT, ADJUVANTED 2021 205 complet ed [facility] COVID-19 (JANZZ), MRNA, LNP-S, PF, 30 MCG/0.3 ML DOSE 3 2020 208 complet ed PFR; [id number]; 1 [facility] INFLUENZA VACCINE, QUADRIVALENT, ADJUVANTED 2020 205 complet ed [facility] COVID-19 (JANZZ), MRNA, LNP-S, PF, 30 MCG/0.3 ML DOSE 2 2020 208 complet ed PFR; [id number]; [address] [place] [address] DIVISIO N COVID-19 (JANZZ), MRNA, LNP-S, PF, 30 MCG/0.3 ML DOSE 1 2020 208 complet ed PFR; [id number]; 1 [facility] INFLUENZA, HIGH-DOSE, QUADRIVALENT 2019 197 complet ed [facility] INFLUENZA, INJECTABLE, QUADRIVALENT, PRESERVATIVE FREE 2018 150 complet ed [facility] ZOSTER RECOMBINANT 2 2018 187 complet ed [facility] ZOSTER RECOMBINANT 1 2018 187 complet ed [facility] N INFLUENZA, INJECTABLE, QUADRIVALENT, PRESERVATIVE FREE [address] [facility] N INFLUENZA, INJECTABLE, QUADRIVALENT, PRESERVATIVE FREE [address] [facility] N PNEUMOCOCCAL CONJUGATE PCV [address] [facility] N INFLUENZA, SEASONAL, INJECTABLE, PRESERVATIVE FREE 2014 140 complet ed [facility] N PNEUMOCOCCAL POLYSACCHARID E PPV23 [address] [facility] N INFLUENZA, UNSPECIFIED FORMULATION 2013 88 complet ed [facility] N TDAP 2013 115 complet ed Right Deltoid [facility] N INFLUENZA, UNSPECIFIED FORMULATION 2012 88 complet ed [facility] INFLUENZA, UNSPECIFIED FORMULATION 2011 88 complet ed [facility] INFLUENZA, UNSPECIFIED FORMULATION [address] [facility] N INFLUENZA, UNSPECIFIED FORMULATION 2009 88 complet ed [facility] TD(ADULT) UNSPECIFIED FORMULATION 2009 139 complet ed Left Deltoid [facility] N PNEUMOCOCCAL, UNSPECIFIED FORMULATION 2008 109 complet ed [facility] Results Combined list of recent chemistry, hematology and other laboratory results from Department of Defense and Veterans Affairs, ranging from 15 months to all on record, depending upon the facility. Order Name Results Value Reference Range Date Interpretation Specimen Comments Source URINALYSI S W/ CX REFLEX ([facility]) COLOR OF URINE Yellow 11/01 Specimen Type: URINE No comment entered. Ordering Provider: ROSALIE GONZALES Report Released Date/Time: Nov 01, 2024 09:11 AM Reporting Lab: [facility] [id number] Performing Lab: [facility] [id number] [facility] URINALYSI S W/ CX REFLEX ([facility]) BILIRUBIN. TOTAL [PRESENCE] IN URINE BY TEST STRIP Negativ emg/dL 11/01 Specimen Type: URINE No comment entered. Ordering Provider: ROSALIE GONZALES Report Released Date/Time: Nov 01, 2024 09:11 AM Reporting Lab: [facility] [place] [id number] Performing Lab: [facility] URINALYSI S W/ CX REFLEX ([facility]) PH OF URINE BY TEST STRIP 6.0 5.0 - 8.0 11/01 Specimen Type: URINE No comment entered. Ordering Provider: ROSALIE GONZALES Report Released Date/Time: Nov 01, 2024 09:11 AM Reporting Lab: [facility] [place] [address] Performing Lab: [facility] URINALYSI S W/ CX REFLEX (STL-PB) LEUKOCYTES [#/AREA] IN URINE SEDIMENT BY MICROSCOPY HIGH POWER FIELD 1 /[HPF] 0 - 5 11/01 Specimen Type: URINE No comment entered. Ordering Provider: ROSALIE GONZALES Report Released Date/Time: Nov 01, 2024 09:11 AM Reporting Lab: [facility] [place] [address] Performing Lab: [facility] URINALYSI S W/ CX REFLEX (STL-PB) ERYTHROCYT ES [#/VOLUME] IN URINE SEDIMENT BY MICROSCOPY HIGH POWER FIELD 1 /[HPF] 0 - 5 11/01 Specimen Type: URINE No comment entered. Ordering Provider: ROSALIE GONZALES Report Released Date/Time: Nov 01, 2024 09:11 AM Reporting Lab: [facility] [place] [address] Performing Lab: [facility] URINALYSI S W/ CX REFLEX (STL-PB) APPEARANCE OF URINE Clear 11/01 Specimen Type: URINE No comment entered. Ordering Provider: ROSALIE GONZALES Report Released Date/Time: Nov 01, 2024 09:11 AM Reporting Lab: [facility] [place] [address] Performing Lab: [facility] DIVISION URINALYSI S W/ CX REFLEX (STL-PB) NITRITE [PRESENCE] IN URINE BY TEST STRIP Negativ emg/dL 11/01 Specimen Type: URINE No comment entered. Ordering Provider: ROSALIE GONZALES Report Released Date/Time: Nov 01, 2024 09:11 AM Reporting Lab: [facility] [place] [address] Performing Lab: [facility] DIVISION URINALYSI S W/ CX REFLEX (STL-PB) EPITHELIAL CELLS [#/AREA] IN URINE SEDIMENT BY MICROSCOPY LOW POWER FIELD <1/[HPF ] 0 - 5 11/01 Specimen Type: URINE No comment entered. Ordering Provider: ROSALIE GONZALES Report Released Date/Time: Nov 01, 2024 09:11 AM Reporting Lab: [facility] [place] [address] Performing Lab: [facility] DIVISION URINALYSI S W/ CX REFLEX (STL-PB) MUCUS [PRESENCE] IN URINE SEDIMENT BY LIGHT MICROSCOPY RARE/[L PF] 11/01 Specimen Type: URINE No comment entered. Ordering Provider: ROSALIE GONZALES Report Released Date/Time: Nov 01, 2024 09:11 AM Reporting Lab: [facility] [place] [address] Performing Lab: [facility] DIVISION URINALYSI S W/ CX REFLEX (STL-PB) GLUCOSE [MASS/VOLU ME] IN URINE BY TEST STRIP Normalm g/dL 11/01 Specimen Type: URINE No comment entered. Ordering Provider: ROSALIE GONZALES Report Released Date/Time: Nov 01, 2024 09:11 AM Reporting Lab: [facility] [place] [address] Performing Lab: [facility] DIVISION URINALYSI S W/ CX REFLEX (STL-PB) PROTEIN [MASS/VOLU ME] IN URINE BY TEST STRIP 20 mg/dL 11/01 H Specimen Type: URINE No comment entered. Ordering Provider: ROSALIE GONZALES Report Released Date/Time: Nov 01, 2024 09:11 AM Reporting Lab: [facility] [place] [address] Performing Lab: [facility] DIVISION URINALYSI S W/ CX REFLEX (STL-PB) URN.UROBIL INOGEN Normalm g/dL 11/01 Specimen Type: URINE No comment entered. Ordering Provider: ROSALIE GONZALES Report Released Date/Time: Nov 01, 2024 09:11 AM Reporting Lab: [facility] [place] [address] Performing Lab: [facility] DIVISION URINALYSI S W/ CX REFLEX (STL-PB) HEMOGLOBIN [MASS/VOLU ME] IN URINE BY TEST STRIP Negativ emg/dL 11/01 Specimen Type: URINE No comment entered. Ordering Provider: ROSALIE GONZALES Report Released Date/Time: Nov 01, 2024 09:11 AM Reporting Lab: [facility] [place] [address] Performing Lab: [facility] DIVISION URINALYSI S W/ CX REFLEX (STL-PB) KETONES [MASS/VOLU ME] IN URINE BY TEST STRIP Negativ emg/dL 11/01 Specimen Type: URINE No comment entered. Ordering Provider: ROSALIE GONZALES Report Released Date/Time: Nov 01, 2024 09:11 AM Reporting Lab: [facility] [place] [address] Performing Lab: [facility] DIVISION URINALYSI S W/ CX REFLEX (STL-PB) URN.LEUK.E ST. Negativ emg/dL 11/01 Specimen Type: URINE No comment entered. Ordering Provider: ROSALIE GONZALES Report Released Date/Time: Nov 01, 2024 09:11 AM Reporting Lab: [facility] [place] [address] Performing Lab: [facility] DIVISION URINALYSI S W/ CX REFLEX (STL-PB) SPECIFIC GRAVITY OF URINE 1.026 11/01 Specimen Type: URINE No comment entered. Ordering Provider: ROSALIE GONZALES Report Released Date/Time: Nov 01, 2024 09:11 AM Reporting Lab: [facility] [place] [address] Performing Lab: [facility] URINE DRUG SCREEN (STL) ETHANOL [MASS/VOLU ME] IN URINE <10.0mg /dL 0 - 9 11/01 Specimen Type: URINE Comment: The cut-off value for Fentanyl was laboratory developed and its performance characteris tics confirmed by the [facility] laboratory thru method comparison with reference laboratory and medication chart review. The laboratory is regulated under CLIA as qualified to perform high-comple xity testing. Fentanyl is used for clinical purposes in conjunction with other laboratory tests. Ordering Provider: ROSALIE GONZALES Report Released Date/Time: Nov 01, 2024 09:09 AM Reporting Lab: [facility] [place] [address] Performing Lab: [facility] URINE DRUG SCREEN (STL) AMPHETAMIN E [PRESENCE] IN URINE BY SCREEN METHOD Negativ eng/mL 11/01 Specimen Type: URINE Comment: The cut-off value for Fentanyl was laboratory developed and its performance characteris tics confirmed by the [facility] laboratory thru method comparison with reference laboratory and medication chart review. The laboratory is regulated under CLIA as qualified to perform high-comple xity testing. Fentanyl is used for clinical purposes in conjunction with other laboratory tests. Ordering Provider: ROSALIE GONZALES Report Released Date/Time: Nov 01, 2024 09:09 AM Reporting Lab: [facility] [place] [address] Performing Lab: [facility] URINE DRUG SCREEN (STL) BENZOYLECG ONINE [PRESENCE] IN URINE Negativ eng/mL 11/01 Specimen Type: URINE Comment: The cut-off value for Fentanyl was laboratory developed and its performance characteris tics confirmed by the [facility] laboratory thru method comparison with reference laboratory and medication chart review. The laboratory is regulated under CLIA as qualified to perform high-comple xity testing. Fentanyl is used for clinical purposes in conjunction with other laboratory tests. Ordering Provider: ROSALIE GONZALES Report Released Date/Time: Nov 01, 2024 09:09 AM Reporting Lab: [facility] [place] [address] Performing Lab: [facility] URINE DRUG SCREEN (STL) BENZODIAZE PINES [PRESENCE] IN URINE BY SCREEN METHOD Negativ eng/mL 11/01 Specimen Type: URINE Comment: The cut-off value for Fentanyl was laboratory developed and its performance characteris tics confirmed by the [facility] laboratory thru method comparison with reference laboratory and medication chart review. The laboratory is regulated under CLIA as qualified to perform high-comple xity testing. Fentanyl is used for clinical purposes in conjunction with other laboratory tests. Ordering Provider: ROSALIE GONZALES Report Released Date/Time: Nov 01, 2024 09:09 AM Reporting Lab: [facility] [place] [address] Performing Lab: [facility] URINE DRUG SCREEN (STL) CANNABINOI DS [PRESENCE] IN URINE BY SCREEN METHOD Negativ eng/mL 11/01 Specimen Type: URINE Comment: The cut-off value for Fentanyl was laboratory developed and its performance characteris tics confirmed by the [facility] laboratory thru method comparison with reference laboratory and medication chart review. The laboratory is regulated under CLIA as qualified to perform high-comple xity testing. Fentanyl is used for clinical purposes in conjunction with other laboratory tests. Ordering Provider: ROSALIE GONZALES Report Released Date/Time: Nov 01, 2024 09:09 AM Reporting Lab: [facility] [place] [address] Performing Lab: [facility] [id number] [place] [address] URINE DRUG SCREEN (STL) METHADONE [PRESENCE] IN URINE Negativ eng/mL 11/01 Specimen Type: URINE Comment: The cut-off value for Fentanyl was laboratory developed and its performance characteris tics confirmed by the [facility] laboratory thru method comparison with reference laboratory and medication chart review. The laboratory is regulated under CLIA as qualified to perform high-comple xity testing. Fentanyl is used for clinical purposes in conjunction with other laboratory tests. Ordering Provider: ROSALIE GONZALES Report Released Date/Time: Nov 01, 2024 09:09 AM Reporting Lab: [facility] [place] [address] Performing Lab: [facility] [id number] [place] [address] URINE DRUG SCREEN (STL) OPIATES [PRESENCE] IN URINE BY SCREEN METHOD Negativ eng/mL 11/01 Specimen Type: URINE Comment: The cut-off value for Fentanyl was laboratory developed and its performance characteris tics confirmed by the [facility] laboratory thru method comparison with reference laboratory and medication chart review. The laboratory is regulated under CLIA as qualified to perform high-comple xity testing. Fentanyl is used for clinical purposes in conjunction with other laboratory tests. Ordering Provider: ROSALIE GONZALES Report Released Date/Time: Nov 01, 2024 09:09 AM Reporting Lab: [facility] [id number] Performing Lab: [facility] [id number] [place] [address] URINE DRUG SCREEN (STL) CREATININE [MASS/VOLU ME] IN URINE 145.6 mg/dL 63.0 - 166.0 11/01 Specimen Type: URINE Comment: The cut-off value for Fentanyl was laboratory developed and its performance characteris tics confirmed by the [facility] laboratory thru method comparison with reference laboratory and medication chart review. The laboratory is regulated under CLIA as qualified to perform high-comple xity testing. Fentanyl is used for clinical purposes in conjunction with other laboratory tests. Ordering Provider: ROSALIE GONZALES Report Released Date/Time: Nov 01, 2024 09:09 AM Reporting Lab: [facility] [place] [address] Performing Lab: [facility] URINE DRUG SCREEN (STL) OXYCODONE CUTOFF [MASS/VOLU ME] IN URINE FOR SCREEN METHOD Negativ eng/mL 11/01 Specimen Type: URINE Comment: The cut-off value for Fentanyl was laboratory developed and its performance characteris tics confirmed by the [facility] laboratory thru method comparison with reference laboratory and medication chart review. The laboratory is regulated under CLIA as qualified to perform high-comple xity testing. Fentanyl is used for clinical purposes in conjunction with other laboratory tests. Ordering Provider: ROSALIE GONZALES Report Released Date/Time: Nov 01, 2024 09:09 AM Reporting Lab: [facility] [place] [address] Performing Lab: [facility] URINE DRUG SCREEN (STL) BUPRENORPH INE [PRESENCE] IN URINE Negativ eng/mL 11/01 Specimen Type: URINE Comment: The cut-off value for Fentanyl was laboratory developed and its performance characteris tics confirmed by the [facility] laboratory thru method comparison with reference laboratory and medication chart review. The laboratory is regulated under CLIA as qualified to perform high-comple xity testing. Fentanyl is used for clinical purposes in conjunction with other laboratory tests. Ordering Provider: ROSALIE GONZALES Report Released Date/Time: Nov 01, 2024 09:09 AM Reporting Lab: [facility] [place] [address] Performing Lab: [facility] URINE DRUG SCREEN (STL) FENTANYL [PRESENCE] IN URINE Negativ eng/mL 11/01 Specimen Type: URINE Comment: The cut-off value for Fentanyl was laboratory developed and its performance characteris tics confirmed by the [facility] laboratory thru method comparison with reference laboratory and medication chart review. The laboratory is regulated under CLIA as qualified to perform high-comple xity testing. Fentanyl is used for clinical purposes in conjunction with other laboratory tests. Ordering Provider: ROSALIE GONZALES Report Released Date/Time: Nov 01, 2024 09:09 AM Reporting Lab: [facility] [place] [address] Performing Lab: [facility] DIVISION B12 COBALAMIN (VITAMIN B12) [MASS/VOLU ME] IN SERUM OR PLASMA 704 pg/mL 213 - 816 11/01 Specimen Type: SERUM No comment entered. Ordering Provider: ROSALIE GONZALES Report Released Date/Time: Nov 01, 2024 08:15 AM Reporting Lab: [facility] [place] [address] Performing Lab: [facility] DIVISION CBC LEUKOCYTES [#/VOLUME] IN BLOOD BY AUTOMATED COUNT 7.8 10*3/uL 3.6 - 11.2 11/01 Specimen Type: BLOOD No comment entered. Ordering Provider: ROSALIE GONZALES Report Released Date/Time: Nov 01, 2024 08:15 AM Reporting Lab: [facility] [place] [address] Performing Lab: [facility] DIVISION CBC ERYTHROCYT ES [#/VOLUME] IN BLOOD BY AUTOMATED COUNT 4.48 10*6/uL 4.10 - 5.70 11/01 Specimen Type: BLOOD No comment entered. Ordering Provider: ROSALIE GONZALES Report Released Date/Time: Nov 01, 2024 08:15 AM Reporting Lab: [facility] [place] [address] Performing Lab: [facility] DIVISION CBC HEMOGLOBIN [MASS/VOLU ME] IN BLOOD 15.2 g/dL 13.1 - 16.8 11/01 Specimen Type: BLOOD No comment entered. Ordering Provider: ROSALIE GONZALES Report Released Date/Time: Nov 01, 2024 08:15 AM Reporting Lab: [facility] [place] [address] Performing Lab: [facility] DIVISION CBC HEMATOCRIT [VOLUME FRACTION] OF BLOOD 44.0 38.2 - 48.4 11/01 Specimen Type: BLOOD No comment entered. Ordering Provider: ROSALIE GONZALES Report Released Date/Time: Nov 01, 2024 08:15 AM Reporting Lab: [facility] [place] [address] Performing Lab: [facility] DIVISION CBC MCV [ENTITIC VOLUME] BY AUTOMATED COUNT 98.2 fL 80.0 - 100.0 11/01 Specimen Type: BLOOD No comment entered. Ordering Provider: ROSALIE GONZALES Report Released Date/Time: Nov 01, 2024 08:15 AM Reporting Lab: [facility] [place] [address] Performing Lab: [facility] DIVISION CBC MCH [ENTITIC MASS] BY AUTOMATED COUNT 33.9 pg 27.0 - 34.0 11/01 Specimen Type: BLOOD No comment entered. Ordering Provider: ROSALIE GONZALES Report Released Date/Time: Nov 01, 2024 08:15 AM Reporting Lab: [facility] [place] [address] Performing Lab: [facility] DIVISION CBC MCHC [MASS/VOLU ME] BY AUTOMATED COUNT 34.5 g/dL 33.0 - 36.0 11/01 Specimen Type: BLOOD No comment entered. Ordering Provider: ROSALIE GONZALES Report Released Date/Time: Nov 01, 2024 08:15 AM Reporting Lab: [facility] [place] [address] Performing Lab: [facility] DIVISION CBC PLATELETS [#/VOLUME] IN BLOOD BY AUTOMATED COUNT 173 10*3/uL 150 - 400 11/01 Specimen Type: BLOOD No comment entered. Ordering Provider: ROSALIE GONZALES Report Released Date/Time: Nov 01, 2024 08:15 AM Reporting Lab: [facility] [place] [address] Performing Lab: [facility] DIVISION CBC PLATELET MEAN VOLUME [ENTITIC VOLUME] IN BLOOD BY AUTOMATED COUNT 10.0 fL 7.5 - 11.2 11/01 Specimen Type: BLOOD No comment entered. Ordering Provider: ROSALIE GONZALES Report Released Date/Time: Nov 01, 2024 08:15 AM Reporting Lab: [facility] [place] [address] Performing Lab: [facility] DIVISION CBC ERYTHROCYT E DISTRIBUTI ON WIDTH [RATIO] BY AUTOMATED COUNT 12.9 11.8 - 15.1 11/01 Specimen Type: BLOOD No comment entered. Ordering Provider: ROSALIE GONZALES Report Released Date/Time: Nov 01, 2024 08:15 AM Reporting Lab: [facility] [place] [address] Performing Lab: [facility] DIVISION CBC LYMPHOCYTE S/100 LEUKOCYTES IN BLOOD BY AUTOMATED COUNT 17 11/01 Specimen Type: BLOOD No comment entered. Ordering Provider: ROSALIE GONZALES Report Released Date/Time: Nov 01, 2024 08:15 AM Reporting Lab: [facility] [place] [address] Performing Lab: [facility] DIVISION CBC MONOCYTES/ 100 LEUKOCYTES IN BLOOD BY AUTOMATED COUNT 9 11/01 Specimen Type: BLOOD No comment entered. Ordering Provider: ROSALIE GONZALES Report Released Date/Time: Nov 01, 2024 08:15 AM Reporting Lab: [facility] [place] [address] Performing Lab: [facility] DIVISION CBC NEUTROPHIL S/100 LEUKOCYTES IN BLOOD BY AUTOMATED COUNT 72 11/01 Specimen Type: BLOOD No comment entered. Ordering Provider: ROSALIE GONZALES Report Released Date/Time: Nov 01, 2024 08:15 AM Reporting Lab: [facility] [place] [address] Performing Lab: [facility] DIVISION CBC EOSINOPHIL S/100 LEUKOCYTES IN BLOOD BY AUTOMATED COUNT 1 11/01 Specimen Type: BLOOD No comment entered. Ordering Provider: ROSALIE GONZALES Report Released Date/Time: Nov 01, 2024 08:15 AM Reporting Lab: [facility] [place] [address] Performing Lab: [facility] DIVISION CBC BASOPHILS/ 100 LEUKOCYTES IN BLOOD BY AUTOMATED COUNT 1 11/01 Specimen Type: BLOOD No comment entered. Ordering Provider: ROSALIE GONZALES Report Released Date/Time: Nov 01, 2024 08:15 AM Reporting Lab: [facility] [place] [address] Performing Lab: [facility] DIVISION CBC LYMPHOCYTE S [#/VOLUME] IN BLOOD BY AUTOMATED COUNT 1.33 10*3/uL 0.77 - 4.50 11/01 Specimen Type: BLOOD No comment entered. Ordering Provider: ROSALIE GONZALES Report Released Date/Time: Nov 01, 2024 08:15 AM Reporting Lab: [facility] [place] [address] Performing Lab: [facility] DIVISION CBC MONOCYTES [#/VOLUME] IN BLOOD BY AUTOMATED COUNT 0.69 10*3/uL 0.19 - 0.80 11/01 Specimen Type: BLOOD No comment entered. Ordering Provider: ROSALIE GONZALES Report Released Date/Time: Nov 01, 2024 08:15 AM Reporting Lab: [facility] [place] [address] Performing Lab: [facility] DIVISION CBC NEUTROPHIL S [#/VOLUME] IN BLOOD BY AUTOMATED COUNT 5.65 10*3/uL 2.10 - 8.00 11/01 Specimen Type: BLOOD No comment entered. Ordering Provider: ROSALIE GONZALES Report Released Date/Time: Nov 01, 2024 08:15 AM Reporting Lab: [facility] [place] [address] Performing Lab: [facility] DIVISION CBC EOSINOPHIL S [#/VOLUME] IN BLOOD BY AUTOMATED COUNT 0.09 10*3/uL 0.00 - 0.60 11/01 Specimen Type: BLOOD No comment entered. Ordering Provider: ROSALIE GONZALES Report Released Date/Time: Nov 01, 2024 08:15 AM Reporting Lab: [facility] [place] [address] Performing Lab: [facility] DIVISION CBC BASOPHILS [#/VOLUME] IN BLOOD BY AUTOMATED COUNT 0.04 10*3/uL 0.00 - 0.20 11/01 Specimen Type: BLOOD No comment entered. Ordering Provider: ROSALIE GONZALES Report Released Date/Time: Nov 01, 2024 08:15 AM Reporting Lab: [facility] [place] [address] Performing Lab: [facility] DIVISION COMPREHEN SIVE METABOLIC PANEL CREATININE [MASS/VOLU ME] IN SERUM OR PLASMA 1.26 mg/dL 0.70 - 1.30 11/01 Specimen Type: PLASMA Comment: No hemolysis noted. Ordering Provider: ROSALIE GONZALES Report Released Date/Time: Nov 01, 2024 08:15 AM Reporting Lab: [facility] [place] [address] Performing Lab: [facility] DIVISION COMPREHEN SIVE METABOLIC PANEL UREA NITROGEN [MASS/VOLU ME] IN SERUM OR PLASMA 26.9 mg/dL 9.0 - 25.0 11/01 H Specimen Type: PLASMA Comment: No hemolysis noted. Ordering Provider: ROSALIE GONZALES Report Released Date/Time: Nov 01, 2024 08:15 AM Reporting Lab: [facility] [place] [address] Performing Lab: [facility] DIVISION COMPREHEN SIVE METABOLIC PANEL GLUCOSE [MASS/VOLU ME] IN SERUM OR PLASMA 122 mg/dL 72 - 99 11/01 H Specimen Type: PLASMA Comment: No hemolysis noted. Ordering Provider: ROSALIE GONZALES Report Released Date/Time: Nov 01, 2024 08:15 AM Reporting Lab: [facility] [place] [address] Performing Lab: [facility] DIVISION COMPREHEN SIVE METABOLIC PANEL SODIUM [MOLES/VOL UME] IN SERUM OR PLASMA 138 meq/L 136 - 145 11/01 Specimen Type: PLASMA Comment: No hemolysis noted. Ordering Provider: ROSAILE GONZALES Report Released Date/Time: Nov 01, 2024 08:15 AM Reporting Lab: [facility] [place] [address] Performing Lab: [facility] DIVISION COMPREHEN SIVE METABOLIC PANEL POTASSIUM [MOLES/VOL UME] IN SERUM OR PLASMA 4.6 meq/L 3.5 - 5.0 11/01 Specimen Type: PLASMA Comment: No hemolysis noted. Ordering Provider: ROSALIE GONZALES Report Released Date/Time: Nov 01, 2024 08:15 AM Reporting Lab: [facility] [place] [address] Performing Lab: [facility] DIVISION COMPREHEN SIVE METABOLIC PANEL CHLORIDE [MOLES/VOL UME] IN SERUM OR PLASMA 105 meq/L 98 - 107 11/01 Specimen Type: PLASMA Comment: No hemolysis noted. Ordering Provider: ROSALIE GONZALES Report Released Date/Time: Nov 01, 2024 08:15 AM Reporting Lab: [facility] [place] [address] Performing Lab: [facility] DIVISION COMPREHEN SIVE METABOLIC PANEL CARBON DIOXIDE, TOTAL [MOLES/VOL UME] IN SERUM OR PLASMA 24 meq/L 22 - 31 11/01 Specimen Type: PLASMA Comment: No hemolysis noted. Ordering Provider: ROSALIE GONZALES Report Released Date/Time: Nov 01, 2024 08:15 AM Reporting Lab: [facility] [place] [address] Performing Lab: [facility] DIVISION COMPREHEN SIVE METABOLIC PANEL CALCIUM [MASS/VOLU ME] IN SERUM OR PLASMA 9.7 mg/dL 8.4 - 10.4 11/01 Specimen Type: PLASMA Comment: No hemolysis noted. Ordering Provider: ROSALIE GONZALES Report Released Date/Time: Nov 01, 2024 08:15 AM Reporting Lab: [facility] [place] [address] Performing Lab: [facility] DIVISION COMPREHEN SIVE METABOLIC PANEL PROTEIN [MASS/VOLU ME] IN SERUM OR PLASMA 7.4 g/dL 6.0 - 8.6 11/01 Specimen Type: PLASMA Comment: No hemolysis noted. Ordering Provider: ROSALIE GONZALES Report Released Date/Time: Nov 01, 2024 08:15 AM Reporting Lab: [facility] [place] [address] Performing Lab: [facility] DIVISION COMPREHEN SIVE METABOLIC PANEL ALBUMIN [MASS/VOLU ME] IN SERUM OR PLASMA 4.4 g/dL 3.4 - 5.0 11/01 Specimen Type: PLASMA Comment: No hemolysis noted. Ordering Provider: ROSALIE GONZALES Report Released Date/Time: Nov 01, 2024 08:15 AM Reporting Lab: [facility] [place] [address] Performing Lab: [facility] DIVISION COMPREHEN SIVE METABOLIC PANEL BILIRUBIN. TOTAL [MASS/VOLU ME] IN SERUM OR PLASMA 0.9 mg/dL 0.2 - 1.2 11/01 Specimen Type: PLASMA Comment: No hemolysis noted. Ordering Provider: ROSALIE GONZALES Report Released Date/Time: Nov 01, 2024 08:15 AM Reporting Lab: [facility] [place] [address] Performing Lab: [facility] DIVISION COMPREHEN SIVE METABOLIC PANEL ALKALINE PHOSPHATAS E [ENZYMATIC ACTIVITY/V OLUME] IN SERUM OR PLASMA 57 U/L 40 - 150 11/01 Specimen Type: PLASMA Comment: No hemolysis noted. Ordering Provider: ROSALIE GONZALES Report Released Date/Time: Nov 01, 2024 08:15 AM Reporting Lab: [facility] [place] [address] Performing Lab: [facility] DIVISION COMPREHEN SIVE METABOLIC PANEL ASPARTATE AMINOTRANS FERASE [ENZYMATIC ACTIVITY/V OLUME] IN SERUM OR PLASMA 20 U/L 5 - 34 11/01 Specimen Type: PLASMA Comment: No hemolysis noted. Ordering Provider: ROSALIE GONZALES Report Released Date/Time: Nov 01, 2024 08:15 AM Reporting Lab: [facility] [place] [address] Performing Lab: [facility] DIVISION COMPREHEN SIVE METABOLIC PANEL ALANINE AMINOTRANS FERASE [ENZYMATIC ACTIVITY/V OLUME] IN SERUM OR PLASMA 20 U/L 8 - 40 11/01 Specimen Type: PLASMA Comment: No hemolysis noted. Ordering Provider: ROSALIE GONZALES Report Released Date/Time: Nov 01, 2024 08:15 AM Reporting Lab: [facility] [place] [address] Performing Lab: [facility] DIVISION COMPREHEN SIVE METABOLIC PANEL GLOMERULAR FILTRATION RATE/1.73 SQ M.PREDICTE D [VOLUME RATE/AREA] IN SERUM, PLASMA OR BLOOD BY CREATININE -BASED FORMULA (CKD-EPI 2020) 57.66 60 11/01 Specimen Type: PLASMA Comment: No hemolysis noted. Ordering Provider: ROSALIE GONZALES Report Released Date/Time: Nov 01, 2024 08:15 AM Reporting Lab: [facility] [place] [address] Performing Lab: [facility] DIVISION HGA1C HEMOGLOBIN A1C/HEMOGL OBIN.TOTAL IN BLOOD 6.7 4.0 - 6.0 11/01 H Specimen Type: BLOOD No comment entered. Ordering Provider: ROSALIE GONZALES Report Released Date/Time: Nov 01, 2024 08:15 AM Reporting Lab: [facility] [place] [address] Performing Lab: [facility] LIPID PANEL (STL) CHOLESTERO L [MASS/VOLU ME] IN SERUM OR PLASMA 165 mg/dL 0 - 200 11/01 Specimen Type: PLASMA Comment: No hemolysis noted. Ordering Provider: ROSALIE GONZALES Report Released Date/Time: Nov 01, 2024 08:15 AM Reporting Lab: [facility] [place] [address] Performing Lab: [facility] LIPID PANEL (STL) TRIGLYCERI DE [MASS/VOLU ME] IN SERUM OR PLASMA 95 mg/dL 0 - 150 11/01 Specimen Type: PLASMA Comment: No hemolysis noted. Ordering Provider: ROSALIE GONZALES Report Released Date/Time: Nov 01, 2024 08:15 AM Reporting Lab: [facility] [place] [address] Performing Lab: [facility] #[address] LIPID PANEL (STL) CHOLESTERO L IN LDL [MASS/VOLU ME] IN SERUM OR PLASMA BY CALCULATIO N 103 mg/dL 11/01 Specimen Type: PLASMA Comment: No hemolysis noted. Ordering Provider: ROSALIE GONZALES Report Released Date/Time: Nov 01, 2024 08:15 AM Reporting Lab: [facility] [place] [address] Performing Lab: [facility] LIPID PANEL (STL) CHOLESTERO L IN HDL [MASS/VOLU ME] IN SERUM OR PLASMA 43 mg/dL 40 11/01 Specimen Type: PLASMA Comment: No hemolysis noted. Ordering Provider: ROSALIE GONZALES Report Released Date/Time: Nov 01, 2024 08:15 AM Reporting Lab: [facility] [place] [address] Performing Lab: [facility] DIVISION TSH W/ REFLEX FT4 (STL) THYROTROPI N [UNITS/VOL UME] IN SERUM OR PLASMA 5.332 u[IU]/m L 0.470 - 5.000 11/01 H Specimen Type: PLASMA No comment entered. Ordering Provider: ROSALIE GONZALES Report Released Date/Time: Nov 01, 2024 08:15 AM Reporting Lab: [facility] [place] [address] Performing Lab: [facility] DIVISION TSH W/ REFLEX FT4 (STL) FREE T4(REFLEX) 1.17 ng/mL 0.70 - 1.48 11/01 Specimen Type: PLASMA No comment entered. Ordering Provider: ROSALIE GONZALES Report Released Date/Time: Nov 01, 2024 08:15 AM Reporting Lab: [facility] [place] [address] Performing Lab: [facility] DIVISION HGA1C HEMOGLOBIN A1C/HEMOGL OBIN.TOTAL IN BLOOD 6.4 4.0 - 6.0 05/03 H Specimen Type: BLOOD No comment entered. Ordering Provider: ROSALIE GONZALES Report Released Date/Time: May 03, 2024 08:38 AM Reporting Lab: [facility] [place] [address] Performing Lab: [facility] DIVISION LIPID PANEL (STL) CHOLESTERO L [MASS/VOLU ME] IN SERUM OR PLASMA 165 mg/dL 0 - 200 05/03 Specimen Type: PLASMA Comment: No hemolysis noted. Ordering Provider: ROSALIE GONZALES Report Released Date/Time: May 03, 2024 08:38 AM Reporting Lab: [facility] [place] [address] Performing Lab: [facility] #[address] LIPID PANEL (STL) TRIGLYCERI DE [MASS/VOLU ME] IN SERUM OR PLASMA 151 mg/dL 0 - 150 05/03 H Specimen Type: PLASMA Comment: No hemolysis noted. Ordering Provider: ROSALIE GONZALES Report Released Date/Time: May 03, 2024 08:38 AM Reporting Lab: [facility] [place] [address] Performing Lab: [facility] LIPID PANEL (STL) CHOLESTERO L IN LDL [MASS/VOLU ME] IN SERUM OR PLASMA BY CALCULATIO N 92 mg/dL 05/03 Specimen Type: PLASMA Comment: No hemolysis noted. Ordering Provider: RSOALIE GONZALES Report Released Date/Time: May 03, 2024 08:38 AM Reporting Lab: [facility] [place] [address] Performing Lab: [facility] LIPID PANEL (STL) CHOLESTERO L IN HDL [MASS/VOLU ME] IN SERUM OR PLASMA 43 mg/dL 40 05/03 Specimen Type: PLASMA Comment: No hemolysis noted. Ordering Provider: ROSALIE GONZALES Report Released Date/Time: May 03, 2024 08:38 AM Reporting Lab: [facility] [place] [address] Performing Lab: [facility] MEHREEN FLETCHER [facility] [id number] [facility] Vital Signs Combined list of inpatient and outpatient Vital Signs from Department of Defense and Veterans Affairs, ranging from 12 months to all on record, depending upon the facility. Vital Sign Value Date Comments Source SYSTOLIC BLOOD PRESSURE 133 01/05/2025 08:02:01 [facility] DIASTOLIC BLOOD PRESSURE 68 01/05/2025 08:02:01 [facility] PULSE OXIMETRY 99 01/05/2025 08:02:01 S Paulette TAPIA [facility] WEIGHT 187 01/05/2025 08:02:01 [facility] BMI 28 kg/m2 01/05/2025 08:02:01 [facility] PAIN 7 01/05/2025 08:02:01 [facility] HEIGHT 69 01/05/2025 08:02:01 [facility] TEMPERATURE 97 01/05/2025 08:02:01 [facility] PULSE 60 01/05/2025 08:02:01 [facility] RESPIRATION 16 01/05/2025 08:02:01 [facility] SYSTOLIC BLOOD PRESSURE 127 11/10/2024 07:57:34 [facility] DIASTOLIC BLOOD PRESSURE 67 11/10/2024 07:57:34 [facility] DIV[facility] PULSE OXIMETRY 98 11/10/2024 07:57:34 S Paulette [facility] WEIGHT 187 11/10/2024 07:57:34 [facility] BMI 28 kg/m2 11/10/2024 07:57:34 [facility] PAIN 0 11/10/2024 07:57:34 [facility] HEIGHT 69 11/10/2024 07:57:34 [facility] TEMPERATURE 97.2 11/10/2024 07:57:34 [facility] PULSE 58 11/10/2024 07:57:34 [facility] Tiffany [facility] RESPIRATION 20 11/10/2024 07:57:34 [facility] SYSTOLIC BLOOD PRESSURE 99 11/01/2024 08:17:39 [facility] DIASTOLIC BLOOD PRESSURE 56 11/01/2024 08:17:39 [facility] PULSE OXIMETRY 98 11/01/2024 08:17:[address] [facility] PAIN 0 11/01/2024 08:17:39 [facility] TEMPERATURE 97.8 11/01/2024 08:17:39 [facility] PULSE 64 11/01/2024 08:17:39 [facility] RESPIRATION 20 11/01/2024 08:17:39 [facility] SYSTOLIC BLOOD PRESSURE 135 10/06/2024 09:18:01 [facility] DIASTOLIC BLOOD PRESSURE 77 10/06/2024 09:18:01 [facility] PULSE OXIMETRY 97 10/06/2024 09:18:[address] [facility] WEIGHT 189.3 10/06/2024 09:18:01 [facility] BMI 28 kg/m2 10/06/2024 09:18:01 [facility] PAIN 5 10/06/2024 09:18:01 [facility] HEIGHT 69 10/06/2024 09:18:01 [facility] TEMPERATURE 97.2 10/06/2024 09:18:01 [facility] PULSE 57 10/06/2024 09:18:01 [facility] RESPIRATION 18 10/06/2024 09:18:01 [facility] SYSTOLIC BLOOD PRESSURE 130 05/03/2024 08:18:02 [facility] DIASTOLIC BLOOD PRESSURE 62 05/03/2024 08:18:02 [facility] PULSE OXIMETRY 97 05/03/2024 08:18:02 S [facility] WEIGHT 186.4 05/03/2024 08:18:02 [facility] BMI 28 kg/m2 05/03/2024 08:18:02 [facility] PAIN 6 05/03/2024 08:18:02 [facility] TEMPERATURE 97.7 05/03/2024 08:18:02 [facility] PULSE 54 05/03/2024 08:18:02 [facility] RESPIRATION 18 05/03/2024 08:18:02 [facility] Encounters Combined list of: 1) Encounters from Department of [facility] facilities going backup to the last 18 months, not all [place] inpatient encounters are included; 2) Encounters from the Department of [facility] facilities going backup to 280 months. 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, right eye, with macular edema BERNARDINO TODD 10/07 [facility] Outpatient Encounter [id number] Debra DEXTER [facility] HEARING AID REPAIR/MOD IFYING [id number] Diagnos is: ICD-10- CM H90.3 Sensori neural hearing loss, bilater al YUE JACOB S E 10/19 [facility] Outpatient Encounter [id number] CALVIN CAVANAUGH 10/22 [facility] Outpatient Encounter [id number] 10/28 [facility] DIVISION OFFICE O/P EST MOD 30 MIN [id number] [id number] Diagnos is: ICD-10- CM E11.9 Type 2 diabete s mellitu s 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 DIONTE COSTA J 10/29 [facility] DIVISION OFFICE O/P EST LOW 20 MIN [id number] [id number] Diagnos is: ICD-10- CM E11.9 Type 2 diabete s mellitu s 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 LAMINE MOREAU E 11/03 [facility] DIVISION OFFICE O/P EST HI 40 MIN [id number] [id number] Diagnos is: ICD-10- CM 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, right eye, with macular edema ASHER CUI 11/23 [facility] DIVISION SENSORY INTEGRATIO N [id number] [id number] Diagnos is: ICD-10- CM H54.3 Unquali fied visual loss, both eyes ZAN HEAD 11/23 [facility] DIVISION CPTR OPHTH DX IMG POST SEGMT [id number] [id number] Diagnos is: ICD-10- CM 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, right eye, with macular edema Debra BOURGEOIS S 12/08 [facility] COMPRE OPH EXAM EST PT 1/ [id number] [id number] Diagnos is: ICD-10- CM H34.811 0 Central retinal vein occls, right eye, with macular edema BERNARDINO TODD 12/08 [facility] ORTHOTIC MGMT&TRAIN G 1ST ENC [id number] [id number] Diagnos is: ICD-10- CM Z46.89 Encount er for fitting and adjustm ent of oth devices NESSA GARCIA J 12/13 [facility] CASE MGMT-ORAL HEALTH LIT [id number] [id number] Diagnos is: ICD-10- CM K03.6 Deposit s [accret ions] on teeth DUTTON,CAT HY 01/04 [facility] Outpatient Encounter [id number] 01/11 [facility] Outpatient Encounter [id number] JASSON,CA ROLE S 01/12 [facility] Outpatient Encounter [id number] 01/18 [facility] Outpatient Encounter [id number] 02/07 [facility] CPTR OPHTH DX IMG POST SEGMT [id number] [id number] Diagnos is: ICD-10- CM H34.811 0 Central retinal vein occls, right eye, with macular edema Debra BOURGEOIS S 03/02 [facility] DIVISION OFFICE O/P EST LOW 20 MIN [id number] [id number] Diagnos is: ICD-10- CM H34.811 0 Central retinal vein occls, right eye, with macular edema TAMERA BROUSSARD 03/02 [facility] 30 [id number] [id number] Diagnos is: ICD-10- CM H54.3 Unquali fied visual loss, both eyes IDALMIS GANA 03/02 [facility] DIVISION OFFICE O/P EST HI 40 MIN [id number] [id number] Diagnos is: ICD-10- CM 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, right eye, with macular edema CUIASHER ANTONIO R 04/26 [facility] DIVISION SENSORY INTEGRATIO N [id number] [id number] Diagnos is: ICD-10- CM H54.511 A Low vision right eye categor y 1, normal vision left eye ZAN HEAD L 04/26 [facility] DIVISION CPTR OPHTH DX IMG POST SEGMT [id number] [id number] Diagnos is: ICD-10- CM H34.811 0 Central retinal vein occls, right eye, with macular edema LAMINE WING 04/27 [facility] DIVISION AFLIBERCEP T INJECTION [id number] [id number] Diagnos is: ICD-10- CM 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, right eye, with macular edema ANDRE ROSALES 04/27 [facility] MULTI DEN INSERT CUSTOM MOLD [id number] [id number] Diagnos is: ICD-10- CM E11.40 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, unsp PHILIPPE,I AN R 04/29 [facility] O/P EST MOD 30 MIN [id number] [id number] Diagnos is: ICD-10- CM E11.42 Type 2 diabete s mellitu s with diabeti c polyneu ropathy DIONTE COSTA J 05/03 [facility] COMPRESSIO N STOCKING [id number] [id number] Diagnos is: ICD-10- CM I89.0 Lymphed allegra, not elsewhe re classif ied PHILIPPE,I AN R 05/03 [facility] ADMIN [id number] [id number] DANIELA GONZALESE 05/03 [facility] O/P EST LOW 20 MIN [id number] [id number] Diagnos is: ICD-10- CM 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, right eye, with macular edema Debra BOURGEOIS S 06/29 [facility] DIVISION THERAPEUTI C EXERCISES [id number] [id number] Diagnos is: ICD-10- CM M79.606 Pain in leg, unspeci fied DEXTER,JEANNINE E 07/08 [facility] DIVISION THERAPEUTI C EXERCISES 46894-4.65 [id number] Diagnos is: ICD-10- CM M79.606 Pain in leg, unspeci fied DEXTER,JEANNINE E 07/20 [facility] Outpatient Encounter [id number] [id number] 07/26 [facility] THERAPEUTI C EXERCISES [id number] [id number] Diagnos is: ICD-10- CM M79.606 Pain in leg, unspeci fied ALANIS MCKEON A 08/09 [facility] THERAPEUTI C EXERCISES 88000-4.65 [id number] Diagnos is: ICD-10- CM M79.606 Pain in leg, unspeci fied JEANNINE RENTERIA E 08/30 [facility] INTRM OPH EXAM EST PATIENT [id number] [id number] Diagnos is: ICD-10- CM 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, right eye, with macular edema ANDRE ROSALES A 08/31 [facility] CPTRZ OPH DX IMG PST SGM RTA [id number] [id number] Diagnos is: ICD-10- CM H35.81 Retinal edema Debra BOURGEOIS INDRA S 08/31 [facility] Outpatient Encounter [id number] [id number] 09/06 [facility] Outpatient Encounter [id number] [id number] 09/07 [facility] Outpatient Encounter [id number] [id number] JASSON,CA ROLE S 09/08 [facility] SYNCH AUDIO-ONLY EST MOD 30 [id number] [id number] Diagnos is: ICD-10- CM M25.551 Pain in right hip DIONTE COSTA 09/08 [facility] Outpatient Encounter [id number] [id number] 10/06 [facility] OFF/OP CNSLTJ NEW/EST LOW 30 [id number] [id number] Diagnos is: ICD-10- CM M25.551 Pain in right hip PARDEEP COOMBS R 10/06 [facility] Outpatient Encounter [id number] [id number] 10/06 [facility] Outpatient Encounter [id number] [id number] 10/08 [facility] Outpatient Encounter [id number] [id number] Diagnos is: ICD-10- CM 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 RENATO AMES IE S 10/11 [facility] OFFICE O/P EST MOD 30 MIN [id number] [id number] Diagnos is: ICD-10- CM K80.20 Calculu s of gallbla dder w/o cholecy stitis w/o obstruc tiJOSE L Betts T 10/12 [facility] Outpatient Encounter [id number] [id number] 10/17 [facility] CPTRZ OPH DX IMG PST SGM RTA [id number] [id number] Diagnos is: ICD-10- CM 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, bilater al, interme d dry stage LAMINE WING 10/26 [facility] INTRM OPH EXAM EST PATIENT [id number] [id number] Diagnos is: ICD-10- CM H34.811 0 Central retinal vein occls, right eye, with macular edema Debra GIRALDO G 10/26 [facility] Outpatient Encounter [id number] [id number] 10/26 [facility] OFFICE O/P EST MOD 30 MIN [id number] [id number] Diagnos is: ICD-10- CM Z95.1 Presenc e of aortoco ronary bypass graft DIONTE COSTA J 11/01 [facility] DIVISION OFFICE O/P NEW LOW 30 MIN [id number] [id number] Diagnos is: ICD-10- CM L72.3 Sebaceo us cyst Clayton HOLLIDAY ANE E 11/10 [facility] Outpatient Encounter [id number] [id number] 11/11 [facility] CPTRZ OPH DX IMG PST SGM RTA [id number] [id number] 1 Diagnos is: ICD-10- CM H34.811 0 Central retinal vein occls, right eye, with macular edema LAMINE WING 12/28 [facility] INTRM OPH EXAM EST PATIENT [id number] [id number] Diagnos is: ICD-10- CM 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 , left hip PARDEEP COOMBS R 01/05 [facility] Outpatient Encounter [id number] 01/13 [facility] Outpatient Encounter [id number] [id number] 01/30 [facility] Outpatient Encounter [id number] [id number] 02/20 [facility] Outpatient Encounter [id number] 02/20 [facility] CPTRZ OPH DX IMG PST SGM RTA [id number] [id number] Diagnos is: ICD-10- CM 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, right eye, with macular edema LAMINE WING 02/22 [facility] O/P EST MOD 30 MIN 99421-3.65 [id number] Diagnos is: ICD-10- CM H34.811 0 Central retinal vein occls, right eye, with macular edema TAMERA BROUSSARD 02/22 [facility] Outpatient Encounter [id number] 02/22 [facility] O/P EST HI 40 MIN 09000-2.65 [id number] Diagnos is: ICD-10- CM 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, right eye, with macular edema ASHER CUI R 02/23 [facility] MNGMENT TRAINING [id number] [id number] Diagnos is: ICD-10- CM H54.511 A Low vision right eye categor y 1, normal vision left eye KIM AMAYA 02/23 [facility] Outpatient Encounter [id number] 03/13 [facility] MTMS BY PHARM EST 15 MIN 66452-7.65 [id number] Diagnos is: ICD-10- CM Z51.81 Encount er for therape utic drug level monitor REYNALDO Neves 03/17 [facility] Social History Combined list of available smoking, tobacco, and other social history from [facility] and [facility] facilities. Social History Type Response Date Comment Sourc e Tobacco smoking status RIIS [facility]TO[facility]ACCO NEVER USED 05/03/2024 [facility] History of tobacco use ME-TOBACCO NEVER USED 05/01/2023 [facility] History of tobacco use VA-TOBACCO NEVER USED 04/28/2022 [facility]2020 [facility] History of tobacco use VATOBACCO NEVER USED 02/28/2019 [facility] History of tobacco use [facility] NON-USER OF TOBACCO 05/06/2017 [facility] History of tobacco use LIFETIME NON-USER OF TOBACCO 06/11/2016 [facility] History of tobacco use LIFETIME NON-USER OF TOBACCO 07/31/2015 [facility] History of tobacco use QUIT TOBACCO >7 Y EARS AGO 09/18/2014 [facility] History of tobacco use LIFETIME NON-USER OF TOBACCO 11/22/2013 [facility] History of tobacco use LIFETIME NON-USER OF TOBACCO 02/03/2013 [facility] History of tobacco use LIFETIME NON-USER OF TOBACCO 06/05/2010 [facility] Plan of Care List of future care activities from Department of [facility] Affairs facilities. Additional future care activities may be listed in the Assessment and Plan section. Date/Time Care Activity Care Activity Detail Facili ty 03/30/2025 AMBULATORY - SURGERY AMBULATORY - SURGERY [facility] Advance Directives List of completed, amended, or rescinded Advance Directives on record at [facility] Affairs facilities. An actual copy of the Directive is not included. Date Advance Directive Provider Source 10/25/[address] [facility]
--- OUTSIDE RECORDS SUMMARY | 2025-03-26 07:35 | XMS_ITS | Clinical Summary ---
Author Organization [facility] Address [address] [place] [id number] Care Team Providers Care License Distributor Name Role Phone Kingsley Sarkar MD Unavailable [phone] Suhail Flores NP Primary Care Provider [phone] Allergies No known active allergies Medications ONETOUCH [...] 08/16/2024 Assessment & Plan (08/16/2024 9:49 AM BELLOWS TESTER): Stress test shows new basal inferior ischemia. He has previously had his RCA stented. We discussed continued medical therapy versus invasive evaluation. We will proceed with coronary angiography. Atherosclerosis of [place] ronary artery of [place] heart without angina pectoris 12/22/2023 Assessment & Plan (10/31/2024 12:32 PM CDT): S/P PCI of RCA, Continue DAPT Assessment & Plan (08/16/2024 9:49 AM BELLOWS TESTER): Status post PCI and CABG with new [...] losartan. Assessment & Plan (08/16/2024 9:49 AM BELLOWS TESTER): Continue amlodipine, losartan and metoprolol. Assessment & Plan (12/22/2023 9:34 AM CDT): Continue losartan. Paroxysmal atrial fibrillation 12/22/2023 Assessment & Plan (10/31/2024 12:33 PM CDT): Continue Xarelto Assessment & Plan (08/16/2024 9:50 AM BELLOWS TESTER): No recurrence. Continue amiodarone. Assessment & Plan [...] (04/22/2018): Added automatically from request for surgery [id number] Lipoma of right shoulder 04/21/2018 Overview (04/21/2018): Added automatically from request for surgery [id number] Cardiac disease 12/24/2013 Overview (11/13/2016): Heart trouble Encounters Date Type Department Care Team Description 02/20/2025 Telephone [place] [employer] [address] [place] [phone] Aishwarya Garnica MA Bleeding/Bruising from Last 3 Months Surgical History Surgery Date Site/Laterality Comments HEART SURGERY CARDIAC STENT PLACEMENT COLONOSCOPY CARDIAC CATHETERIZATION 01/10/2022 [facility] CARDIAC CATHETERIZATION 09/28/2024 N/A Procedure: LEFT HEART CATHETERIZATION WITH CORONARY ANGIOGRAPHY AND WITH OR WITHOUT LEFT VENTRICULOGRAM 64506; Surgeon: Cayetano Ireland MD; Location: CARDIAC RENAL DIETITIAN; Service: Cardiovascular; Laterality: N/A; Medical devices from [...] on file Legal Sex Male 1:14 AM BELLOWS TESTER Gender Identity Not on file Sexual Orientation Not on file Obstetrics History Last Filed Vital Signs Vital Sign Reading Time Taken Comments Blood Pressure 137/77 10/31/2024 11:42 AM CDT Pulse 61 10/31/2024 11:42 AM CDT Temperature 36.2 C (97.2 F) 09/29/2024 7:45 AM BELLOWS TESTER Respiratory Rate 16 10/31/2024 11:42 AM CDT Oxygen Saturation 97% 10/31/2024 11:42 AM CDT Inhaled Oxygen Concentration - - Weight 83.9 kg (185 lb) 10/31/2024 11:42 AM CDT Height 175.3 cm (5' 9) 09/28/2024 9:26 AM BELLOWS TESTER Body Mass Index 27.32 09/28/2024 9:26 AM BELLOWS TESTER Plan of Treatment Health Maintenance Due Date [...] 05/19/2019, 11/17/2018 Medical Devices Implanted Type Area Provisioning Analyst Device Identifier Shelf Expiration Date Model / Serial / Lot MYFLY Synergy Xd Monorail 2.75mm 16mm 144cm Delivery System 1 Access [id number] - [id number] Implanted:Qty: 1 on 09/28/2024 by Cayetano Ireland MD at [facility] MYFLY 04/25/2026 [id number] 270 / / [id number] MYFLY Synergy Xd Monorail 2.25mm 12mm 144cm Delivery System 1 Access [id number] - [id number] Implanted:Qty: 1 on 09/28/2024 by Cayetano Ireland MD at [facility] Yerdle Humberto 01/31/2026 [id number] 220 / / [id number] [facility] Mynxgrip 6-7fr Balloon Catheter Integrate Sealant Lock Latex Free [id number] - [id number] Implanted:Qty: 1 on 09/28/2024 by Cayetano Ireland MD at [facility] 06/20/2026 [id number] / / [id number] Procedures Procedure Name Priority Date/Time Associated Diagnosis Comments COLONOSCOPY 05/05/2018 8:13 AM CDT from Last 3 Months or Most Recently Relevant to Health Maintenance Results * COLONOSCOPY (05/05/2018 8:13 AM CDT) Anatomical Region Laterality Modality Other Narrative Procedure Note Olagbegi, Olayiwola C., MD - 05/05/2018 8:13 AM CDT [facility] Patient Name: Tuyet Castellano [...] passedunder direct vision. The Colonoscope [id number] [id number] introduced through the anus and advanced to [...] for surveillance. Procedure Code(s): --- Professional --- 55948, Colonoscopy, flexible; with removal oftumor(s), polyp(s), or other lesion(s) by hot biopsy forceps Diagnosis Code(s): --- Professional --- Z86.010, Personal history of colonic polyps D12.3, Benign neoplasm of transverse colon (hepatic flexure or splenic flexure) D12.2, Benign neoplasm of ascending colon K57.30, Diverticulosis of large intestine without perforation or abscess without bleeding CPT copyright 2017 [employer]. All rights reserved. The codes documented in this report are preliminary and upon tool design draftsperson reviewmay be revised to meet current compliance requirements. Electronically signed by Surendra Maldonado M.D. Surendra Maldonado M.D. 05/05/2018 8:44:15 AM Number of Addenda: 0 Note Initiated On: 05/05/2018 8:13 AM Surendra Maldonado MD ENDOSCOPY PROCEDURES Fi nal Result from Last 3 Months or Most Recently Relevant to Health Maintenance Insurance MEDICARE COMMERCIAL GENERIC [employer] PPO AETNA [facility] Advance Directives For more information, please contact: [phone] * Full Code (Latest Code Status on File) Date Activated Date Inactivated Comments 09/28/2024 2:16 PM 09/29/2024 4:57 PM Care Teams License Distributor Relationship Specialty Start Date End Date Suhail Flores NP [address] [address] PCP - General Nurse Practitioner 09/13/24 Kingsley Sarkar MD [address] [place] [address] [address] [place] [address] Consulting Physician Cardiovascular Disease 01/14/24
[2025-03-26] MEDS: SODIUM CHLORIDE 0.9% IV 1,000 ML 999 ML IV CONT (07:49)
[2025-03-26 07:56] LABS: Hematocrit 42.2 % (42.0-52.0); Hemoglobin 14.2 g/dL (14.0-18.0); Immature Granulocyte Percent A 0.4 % (0-0.5); Lymphocytes Absolute Auto 0.82 K/mm3 (0.9-3.2); Mean Corpuscular HGB Conc 33.6 g/dl (32-36); Mean Corpuscular Hemoglobin 33.2 pg (26-34); Mean Corpuscular Volume 98.6 fl (80-100); Nucleated Red Blood Cells Absolute Auto 0.000 K/mm3 (0.0-0.012); Nucleated Red Blood Cells Perc 0.0 % (0.0-0.2); Platelet Count Result 166 k/mm3 (150-375); Red Blood Count 4.28 M/mm3 (4.6-6.20); White Blood Count 10.2 K/mm3 (4.5-10.0)
[2025-03-26 08:02] LABS: Estimated CRCL calculation 44 ml/min; Estimated Glomerular Filt Rate 58
[2025-03-26 08:05] LABS: Add Urine Microscopic? YES; Appearance Urine Clear (Clear); Glucose Urine UA Negative (Negative); Leukocyte Esterase Ur 1+ LEU/UL (Negative); Nitrate Urine Negative (Negative); Non Pathogenic Casts 0-2; Specific Grav Ur 1.019 (1.001-1.035)
[2025-03-26 08:08] VITALS: BP 134/83; PULSE 62; RESP 16; O2SAT 100
[2025-03-26 08:16] VITALS: BP 129/70; PULSE 64; RESP 16; O2SAT 97
[2025-03-26 08:26] LABS: Alanine Aminotransferase 25 U/L (6-50); Albumin Level 4.4 g/dL (3.5-5.1); Alkaline Phosphatase 57 U/L (38-126); Anion Gap 8 mmol/L (4-12); Aspartate Amino Transferase 28 U/L (17-59); Bilirubin,Total 1.1 mg/dL (0.2-1.3); Blood Urea Nitrogen 17 mg/dL (9-20); Calcium 9.4 mg/dL (8.4-10.2); Carbon Dioxide 25 mmol/L (22-30); Chloride 105 mmol/L (98-107); Estimated CRCL calculation 48 ml/min; Estimated Glomerular Filt Rate > 60; Glucose 148 mg/dL (65-110); Lipase 133 U/L (23-300); Potassium 4.4 mmol/L (3.4-5.0); Sodium 138 mmol/L (137-145); Total Protein 7.5 g/dL (6.3-8.2)
[2025-03-26] MEDS: CIPROFLOXACIN 500 MG TAB PO (09:03)
== END 2025-03-26 09:14 | disposition home or self-care (01) ==
PROVIDERS: Emergency Provider Emergency Medicine; PCP Internal Medicine
DX: R10.9 Unspecified abdominal pain (principal); N39.0 Urinary tract infection, site not specified; K80.20 Calculus of gallbladder without cholecystitis without obstruction; K76.0 Fatty (change of) liver, not elsewhere classified; E11.9 Type 2 diabetes mellitus without complications; I10 Essential (primary) hypertension; E78.5 Hyperlipidemia, unspecified; Z95.1 Presence of aortocoronary bypass graft; Z79.01 Long term (current) use of anticoagulants; I25.10 Atherosclerotic heart disease of native coronary artery without angina pectoris; K21.9 Gastro-esophageal reflux disease without esophagitis; I48.91 Unspecified atrial fibrillation
CPT/HCPCS: 36415; 71045; 74177; 80053; 81001; 83690; 85025; 87086; 96360; 99284; A9270; J7030; Q9967

== ENCOUNTER 2025-06-10 17:34 | Emergency (ER) | payer OTHER, SELFPAY ==
[2025-06-10] VITALS (36 sets, daily range): BP systolic 110–145; BP diastolic 61–80; PULSE 73–94; RESP 14–27; TEMP 36.4–36.8; O2SAT 85–98
--- NOTE | ~2025-06-10 | XR_ITS ---
EXAMINATION: XR chest 1V portable COMPARISON: No comparisons available. HISTORY: Weakness FINDINGS: Moderate pulmonary venous congestion. No pneumothorax. Moderate cardiomegaly. Mediastinal and hilar contours are within normal limits. Poststernotomy. Miscellaneous: None Impression: CHF Reviewed, dictated and finalized at location P. Impression: CHF
--- NOTE | ~2025-06-10 | CT_ITS ---
EXAMINATION: CT abdomen pelvis w con DATE: 06/10/2025 20:51 INDICATION: Abdominal pain. Diarrhea. TECHNIQUE: Computed tomography (CT) of the abdomen and pelvis was performed with 100 mL Omnipaque 350 intravenous contrast. Automated exposure control and iterative reconstruction technique were employed. The dose-length product was 464.69 mGy-cm. COMPARISON: CT abdomen and pelvis 03/26/2025, chest CT 01/08/2022 FINDINGS: The visualized portions of the lung bases demonstrate mild atelectasis and chronic interstitial lung disease. There is 7 mm and 5 mm nodules in left lower lobe. There is a 6 mm nodule in right middle lobe. These nodules are stable from 01/08/2022, consistent with granulomatous disease. No pleural effusion. Cardiomegaly is noted. There are coronary artery calcifications. No pericardial effusion. There is bilateral gynecomastia. The liver is normal. There is a gallstone in the gallbladder, which is normal in size. Calcifications in the spleen are consistent with old granulomatous disease. There are multiple hypodense masses in the spleen measuring up to 8 mm, likely granulomatous disease. The pancreas and adrenal glands are normal. There are cysts in the kidneys measuring up to 2.9 cm on the right. There is a left inguinal hernia containing fat. There is diverticulosis of the colon without evidence of diverticulitis. The appendix is normal. There are no pathologically enlarged lymph nodes. There is no free intraperitoneal fluid. There is severe lower lumbar spondylosis. IMPRESSION: 1. No specific etiology for the patient's symptoms. Reviewed, dictated and finalized at location E. 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
--- NOTE | 2025-06-10 19:02 | ECG_ITS ---
Test Date: 2025-06-10 19:29:44 Measurements Intervals [place] Rate: 75 P: 0 NC: 0 QRS: -1 QRSD: 103 T: 34 QT: 324 QTc: 362 Interpretive Statements ATRIAL FIBRILLATION NONSPECIFIC ST & T-WAVE ABNORMALITY ABNORMAL RHYTHM ECG No previous ECG available for comparison Electronically Signed On 06-11-2025 03:09:40 LICENSING AND REGISTRATION DIRECTOR by Edmundo Thompson M.D.
--- NOTE | 2025-06-10 19:22 | PC.NURSE ---
Report received from TWYLA Zamora and TWYLA Fields. Assumed care of patient at this time.
[2025-06-10 19:42] LABS: Hematocrit 36.9 % (42.0-52.0); Hemoglobin 12.7 g/dL (14.0-18.0); Mean Corpuscular HGB Conc 34.4 g/dl (32-36); Mean Corpuscular Hemoglobin 33.2 pg (26-34); Mean Corpuscular Volume 96.3 fl (80-100); Platelet Count Result 147 k/mm3 (150-375); Red Blood Count 3.83 M/mm3 (4.6-6.20); White Blood Count 17.2 K/mm3 (4.5-10.0)
--- NOTE | 2025-06-10 19:51 | ED.WEAKNESS ---
HPI - Weakness General Chief complaint: Weakness Stated complaint: multiple complaints Time Seen by Provider: 06/10/25 19:11 History of Present Illness HPI Narrative: 80-year-old male presenting to the emergency department with multiple complaints. His a history of hyper tension, diabetes, paroxysmal AFib, bladder incontinence. Patient presents to the emergency department with burning urination as well as loose watery diarrhea for last 2 days. States he had a social gathering but does not feel like he got illness from anyone. Has had a decreased appetite over last few days but is tolerating oral intake without any nausea or vomiting. No fever chills. No chest pain, abdominal pain, back pain. States he has a history of previous UTI and feel similar. Was otherwise in his normal state of health. Related Data Home Medications ?Medication ?Instructions ?Recorded ?Confirmed ?Last Taken ?Type metformin 1,000 mg tablet 1,000 mg PO DAILY 08/15/19 03/29/25 Unknown History rjjlguqciaws-igxvkcsc-yoaafq tablet 1 tablet PO DAILY 08/15/19 03/29/25 Unknown History omega-3 fatty acids 1,000 mg 1,000 mg PO DAILY 08/15/19 03/29/25 Unknown History capsule (Fish Oil Concentrate) rivaroxaban 20 mg tablet (Xarelto) 20 mg PO 1700 08/15/19 03/29/25 Unknown History tamsulosin 0.4 mg capsule 0.4 mg PO DAILY 08/15/19 03/29/25 Unknown History tramadol 50 mg tablet 50 mg PO Q6H PRN Pain 08/15/19 03/29/25 Unknown History gabapentin 300 mg capsule 300 mg PO QID 08/14/20 03/29/25 Unknown History vitamin B complex (B 1 tablet PO DAILY 02/13/21 03/29/25 Unknown History Complex-Vitamin B12 tablet) acetaminophen 500 mg capsule 500 mg PO Q12H PRN Muscle Pain 11/04/21 03/29/25 Unknown History amlodipine 10 mg tablet 10 mg PO DAILY 06/09/23 03/29/25 Unknown History Allergies Allergy/AdvReac Type Severity Reaction Status Date / Time No Known Allergies Allergy Verified 06/10/25 17:40 Review of Systems Review of Systems: As [facility] Past Medical History Medical History BMI 27.0-27.9,adult CAD (coronary artery disease) Testicular hyperfunction GERD (gastroesophageal reflux disease) Afib Diabetes BPH (benign prostatic hyperplasia) Dyslipidemia Essential hypertension Surgical History Surgical History History of coronary artery stent placement History of coronary artery bypass graft Family History Family History Mother Heart attack Father Heart attack Sibling No problems noted. Sibling Heart disease Cancer Acute myocardial infarction Social History Social History Smoking status: Never smoker Second hand tobacco smoke exposure: No Alcohol intake: never Substance use: never Substance use type: does not use Do You Feel Safe in your Home?: Yes Lack of Transportation: No Lack of Food: Never True Current Housing: I Have Housing Concerned About Future Housing: No Difficulty Paying Gas/Electric Bills: No Difficulty Paying for Meds: No Currently Unemployed: No Education: High School Diploma/GED Difficulty w/ Childcare or Family Care: No Living arrangements: alone Occupation/Education: retired Additional occupation/education comments: [employer] Gender identity (if verbalized by the patient): Male Spiritual care concerns: No Exam Narrative: GENERAL: [Well-appearing, well-nourished, and in no acute distress.] HEAD: [Normocephalic, atraumatic.] EYES: [PERRLA and EOMI.] ENT: Nares clear, no rhinorrhea or epistaxis. Mucous membranes moist. NECK: Supple. CHEST: [Clear to auscultation. No respiratory distress.] HEART: [Regular rate and rhythm]. No murmur heard. [Normal peripheral pulses.] ABDOMEN: [Soft, nondistended], [nontender], [No rigidity or guarding] EXTREMITIES: Normal range of motion. [No edema.] SKIN: Warm, dry, no rash. NEURO: [No focal deficits]. Alert and oriented [x3.] PSYCH: [Normal mood and affect.] Course Vital Signs Vital signs: Vital Signs Temperature 36.4 C 06/10/25 17:36 Pulse Rate 94 06/10/25 17:36 Respiratory Rate 17 06/10/25 17:36 Blood Pressure 139/62 06/10/25 17:36 Pulse Oximetry 96 06/10/25 17:36 Oxygen Delivery Room Air 06/10/25 17:36 Temperature 37.1 C 06/11/25 01:08 CDT Pulse Rate 84 06/11/25 01:08 CDT Respiratory Rate 18 06/11/25 01:08 CDT Blood Pressure 132/71 06/11/25 01:08 CDT Pulse Oximetry 96 06/11/25 01:08 CDT Oxygen Delivery Room Air 06/10/25 18:51 MDM - Weakness MDM Narrative Medical decision making narrative: 80-year-old male presenting to the emergency department with multiple complaints. His a history of hyper tension, diabetes, paroxysmal AFib, bladder incontinence. Patient presents to the emergency department with burning urination as well as loose watery diarrhea for last 2 days. States he had a social gathering but does not feel like he got illness from anyone. Has had a decreased appetite over last few days but is tolerating oral intake without any nausea or vomiting. No fever chills. No chest pain, abdominal pain, back pain. States he has a history of previous UTI and feel similar. Was otherwise in his normal state of health. Patient is overall very well-appearing not any acute distress. He has a soft nontender nondistended abdomen. Describes as urinary incontinence as feeling like he cannot get to the bathroom quickly enough and he dribbles out some urine. Has happened to him before any takes medication for overactive bladder. He now states he is having some burning urination which is different. He is also having loose watery stools without any abdominal discomfort or pain. No fever tachycardia. He has normal vital signs here. AFib on the monitor which she has a history of. Most likely urinary tract infection versus less likely GI infection or intra-abdominal infection/prostatitis. Will order laboratory studies given fluids and a CT scan of the abdomen pelvis was ordered as well as urinalysis. CT scan shows mild colon thickening likely from under distention. No acute diverticulitis or bowel obstruction. No free air. Gallstones seen but no cholecystitis. Laboratory studies showed leukocytosis of 17.2, hemoglobin of 12.7, platelet count 147. Electrolytes with some mild dehydration, potassium 4.1. Sodium 132. Given fluids here. Glucose 185. LFTs unremarkable. Urinalysis shows evidence of infection. Started on Rocephin. Hemodynamically stable and safe for discharge with regular primary care provider follow-up and antibiotics. Given return precautions and follow-up instructions. Medical Records Attestation: I reviewed the patient's medical records. Lab Data Attestation: I reviewed the patient's lab results. 06/10/25 19:35 06/10/25 19:35 Labs: Lab Results 06/10/25 Range/Units 19:35 WBC 17.2 H (4.5-10.0) K/mm3 RBC 3.83 L (4.6-6.20) M/mm3 Hgb 12.7 L (14.0-18.0) g/dL Hct 36.9 L (42.0-52.0) % MCV 96.3 (80-100) fl MCH 33.2 (26-34) pg MCHC 34.4 (32-36) g/dl RDW 13.4 (11.5-14.5) % Plt Count 147 L (150-375) k/mm3 MPV 9.7 (7.4-10.4) fl Immature Gran % (Auto) Not Reportable Neut % (Auto) Not Reportable Lymph % (Auto) Not Reportable Person % (Auto) Not Reportable Eos % (Auto) Not Reportable Baso % (Auto) Not Reportable Lymph # (Auto) Not Reportable Person # (Auto) Not Reportable Eos # (Auto) Not Reportable Baso # (Auto) Not Reportable Abs Immat Gran (auto) Not Reportable Absolute Neuts (auto) Not Reportable Absolute Nucleated RBC Not Reportable Total Counted 100 Neutrophils % (Manual) 83 H (46-73) % Band Neutrophils % 4 (0-6) % Lymphocytes % (Manual) 6.0 L (18-44) % Monocytes % (Manual) 6 (3-9) % Metamyelocytes % 1 % Nucleated RBC % Not Reportable Abs Neuts (Manual) 14.96 H (1.3-6.7) K/mm3 Abs Lymphs (Manual) 1.03 L (1.1-4.5) K/mm3 Abs Monocytes (Manual) 1.03 H (0.1-0.90) K/mm3 Platelet Estimate Slightly decreased (Adequate) Clumped Platelets Present Giant Platelets Present Anisocytosis 1+ Ovalocytes Occasional Schistocytes None seen Sodium 132 L (137-145) mmol/L Potassium 4.1 (3.4-5.0) mmol/L Chloride 100 (98-107) mmol/L Carbon Dioxide 24 (22-30) mmol/L Anion Gap 8 (4-12) mmol/L BUN 19 (9-20) mg/dL Creatinine 1.08 (0.7-1.3) mg/dL Estim Creat Clear Calc 48 ml/min Estimated GFR > 60 (59 - ) Glucose 185 H (65-110) mg/dL Calcium 9.1 (8.4-10.2) mg/dL Total Bilirubin 2.0 H (0.2-1.3) mg/dL AST 27 (17-59) U/L ALT 28 (6-50) U/L Alkaline Phosphatase 53 (38-126) U/L Total Protein 6.9 (6.3-8.2) g/dL Albumin 4.1 (3.5-5.1) g/dL Urine Color Dark yellow (Yellow) Urine Appearance Cloudy H (Clear) Urine pH 5.0 (5.0-9.0) Ur Specific Alexander 1.029 (1.001-1.035) Urine Protein 2+ H (Negative) mg/dL Urine Glucose (UA) Negative (Negative) mg/dL Urine Ketones Trace H (Negative) mg/dL Ur Blood (Man) 3+ H (Negative) Urine Nitrate Positive H (Negative) Urine Bilirubin Negative (Negative) Urine Urobilinogen 1.0 (<2.0) mg/dL Add Ur Microanalysis Reviewed Leukocyte Esterase Rfl 2+ H (Negative) ALEXANDREA/UL Urine RBC >100 H (0-2) /hpf Urine WBC >100 H (0-3) /hpf Urine WBC Clumps Present H (None) /HPF Ur Squamous Epith Cells None seen (Few) /hpf Urine Bacteria Rare /hpf Urine Casts 0-2 Urine Mucus Present /lpf Imaging Data Attestation: I personally reviewed and interpreted this imaging study as follows: My impression: Under distended colon causing some thickening, no evidence of diverticulitis bowel obstruction or free air. Cholelithiasis seen. Discharge Plan Discharge Clinical Impression: Urinary tract infection, Cystitis Patient Disposition: Home Condition: Stable Instructions: Antibiotic Form, Urinary Tract Infection in Men (DC) Additional Instructions: Laboratory studies show evidence of urinary tract infection. CT scan shows no acute finding, you do have some gallstones which were seen previously but not actively infected or causing issues today. We will send you home with antibiotics and this will help your burning urination and urinary symptoms. Follow-up with your regular primary care provider. Return with any worsening or emergent symptoms. Patient Language: Cambodian Prescriptions: New sulfamethoxazole-trimethoprim [Bactrim DS] 800-160 mg tablet 1 tablet PO Q12H Qty: 14 0RF No Action gabapentin 300 mg capsule 300 mg PO QID amlodipine 10 mg tablet 10 mg PO DAILY Contour Next Test Strips Strip See Rx Instructions .ROUTE .COMPLEX Qty: 100 1RF Dose Instruction: USE DIRECTED TO TEST BLOOD SUGAR ONCE DAILY Rx Instructions: USE DIRECTED TO TEST BLOOD SUGAR ONCE DAILY albuterol sulfate 90 mcg/actuation HFA aerosol inhaler 1 puff INHALATION Q4H PRN (Reason: shortness of breath or wheezing) Qty: 8.5 2RF omeprazole 40 mg capsule,delayed release(DR/EC) 20 mg PO DAILY Qty: 30 0RF metformin 1,000 mg tablet 1,000 mg PO DAILY tramadol 50 mg tablet 50 mg PO Q6H PRN (Reason: Pain) Xarelto 20 mg tablet 20 mg PO 1700 tamsulosin 0.4 mg capsule 0.4 mg PO DAILY omega-3 fatty acids [Fish Oil Concentrate] 1,000 mg capsule 1,000 mg PO DAILY jkyejdeeveab-roeabppv-tgwdjd Tablet 1 tablet PO DAILY vitamin B complex [B Complex-Vitamin B12] Tablet 1 tablet PO DAILY acetaminophen 500 mg capsule 500 mg PO Q12H PRN (Reason: Muscle Pain) clopidogrel 75 mg tablet 75 mg PO QAM 90 Days Qty: 90 1RF metoprolol tartrate 25 mg tablet 25 mg PO Q12HR 90 Days Qty: 180 1RF (DME) lancets [Ultra Fine Lancets] 30 gauge misc See Rx Instructions .ROUTE .MEDSUPPLY Qty: 100 0RF Rx Instructions: As directed test blood sugar once daily cyclobenzaprine 5 mg tablet 5 mg PO QHS PRN (Reason: muscle spasm) Qty: 20 0RF ciprofloxacin HCl [Cipro] 500 mg tablet 500 mg PO Q12H Qty: 14 0RF (DME) lancing device Misc See Rx Instructions .ROUTE .MEDSUPPLY Qty: 1 0RF Rx Instructions: As directed fluticasone propionate [Allergy Relief (fluticasone)] 50 mcg/actuation spray,suspension 2 spray NASAL DAILY Qty: 16 2RF levothyroxine 50 mcg tablet See Rx Instructions .ROUTE .COMPLEX Qty: 90 0RF Dose Instruction: TAKE 1 TABLET BY MOUTH DAILY Rx Instructions: TAKE 1 TABLET BY MOUTH DAILY Follow-up/Referrals: Gerardo Avalos DO [Primary Care Provider, Internal Medicine] Time of Disposition: 01:00
[2025-06-10 19:56] LABS: Add Urine Microscopic? YES; Appearance Urine Cloudy (Clear); Glucose Urine UA Negative (Negative); Leukocyte Esterase Ur 2+ LEU/UL (Negative); Need Manual Microscopic Reviewed; Nitrate Urine Positive (Negative); Non Pathogenic Casts 0-2; Specific Grav Ur 1.029 (1.001-1.035)
[2025-06-10 20:00] LABS: Alanine Aminotransferase 28 U/L (6-50); Albumin Level 4.1 g/dL (3.5-5.1); Alkaline Phosphatase 53 U/L (38-126); Anion Gap 8 mmol/L (4-12); Aspartate Amino Transferase 27 U/L (17-59); Bilirubin,Total 2.0 mg/dL (0.2-1.3); Blood Urea Nitrogen 19 mg/dL (9-20); Calcium 9.1 mg/dL (8.4-10.2); Carbon Dioxide 24 mmol/L (22-30); Chloride 100 mmol/L (98-107); Estimated CRCL calculation 48 ml/min; Estimated Glomerular Filt Rate > 60; Glucose 185 mg/dL (65-110); Potassium 4.1 mmol/L (3.4-5.0); Sodium 132 mmol/L (137-145); Total Protein 6.9 g/dL (6.3-8.2)
[2025-06-10] MEDS: LACTATED RINGERS 1,000 ML 999 ML IV CONT (20:00)
[2025-06-10 20:08] LABS: Anisocytosis 1+; Band Neutrophils Percent 4 % (0-6); Giant Platelets Present; Lymphocytes Absolute Manual 1.03 K/mm3 (1.1-4.5); Lymphocytes Percent Manual 6.0 % (18-44); Metamyelocytes Percent 1 %; Monocytes Absolute Manual 1.03 K/mm3 (0.1-0.90); Monocytes Percent Manual 6 % (3-9); Neutrophils Absolute Manual 14.96 K/mm3 (1.3-6.7); Neutrophils Percent Manual 83 % (46-73); Total Cells Counted 100
[2025-06-10 20:09] LABS: Ovalocytes Occasional; Schistocytes None Seen
[2025-06-10] MEDS: cefTRIAXone 2 GM in SODIUM CHLORIDE 0.9% IV 100 ML 200 ML IVPB (21:11)
[2025-06-11] VITALS: PULSE 79; RESP 20; O2SAT 93
[2025-06-11 00:01] VITALS: BP 134/75; PULSE 76; RESP 22; O2SAT 94
[2025-06-11 00:15] VITALS: PULSE 76; RESP 21; O2SAT 93
[2025-06-11 00:30] VITALS: PULSE 76; RESP 18; O2SAT 92
[2025-06-11 00:45] VITALS: PULSE 76; RESP 22; O2SAT 96
[2025-06-11 01:08] VITALS: BP 132/71; PULSE 84; RESP 18; TEMP 37.1; O2SAT 96
== END 2025-06-11 00:55 | disposition home or self-care (01) ==
PROVIDERS: Emergency Medicine; Emergency Provider Student in an Organized Health Care Education/Training Program; PCP Internal Medicine
DX: N30.90 Cystitis, unspecified without hematuria (principal); I10 Essential (primary) hypertension; I48.0 Paroxysmal atrial fibrillation; I25.10 Atherosclerotic heart disease of native coronary artery without angina pectoris; E78.5 Hyperlipidemia, unspecified; E11.9 Type 2 diabetes mellitus without complications; K21.9 Gastro-esophageal reflux disease without esophagitis; N40.0 Benign prostatic hyperplasia without lower urinary tract symptoms; Z95.5 Presence of coronary angioplasty implant and graft; Z95.1 Presence of aortocoronary bypass graft; Z79.899 Other long term (current) drug therapy; Z79.84 Long term (current) use of oral hypoglycemic drugs; Z79.01 Long term (current) use of anticoagulants; Z79.02 Long term (current) use of antithrombotics/antiplatelets
CPT/HCPCS: 36415; 71045; 74177; 80053; 81001; 85025; 87086; 87186; 93005; 96365; 99284; J0696; J7120; Q9967